=== PATIENT | female | born 1985 | race Caucasian/White ===

== ENCOUNTER 2022-03-08 20:11 | Emergency (ER) | payer OTHER, SELFPAY ==
[2022-03-08 20:21] VITALS: BMI 31.1
[2022-03-08 20:23] VITALS: BP 140/73; PULSE 93; RESP 20; TEMP 36.7; O2SAT 95
--- NOTE | 2022-03-08 20:28 | PC.NURSE ---
Provider assessing pt, pt refusing any lab work and pt care at this time.
--- NOTE | 2022-03-08 20:29 | ED_ITS ---
HPI - Overdose General Chief Complaint: Overdose Stated Complaint: OVERDOSE Time Seen by Provider: 03/08/22 20:26 Source: patient and EMS Mode of arrival: EMS Limitations: no limitations History of Present Illness HPI Narrative: Patient comes to the emergency room via EMS for an overdose. Patient states that she was smoking marijuana and the next thing she knows she was on the floor being woken up by paramedics with Narcan. Patient states that she has never abused any drugs other than marijuana and occasional alcohol. And states that usually she gets marijuana from a dispensary but this time it was from a dealer. Patient states that she has never used heroin or fentanyl on purpose, states her father from an overdose and therefore she never wanted to use any drugs. Patient denies suicidal or homicidal ideation. Patient denies chest pain or shortness of breath, no palpitations Related Data Allergies Allergy/AdvReac Type Severity Reaction Status Date / Time No Known Allergies Allergy Unverified 01/21/20 15:53 [No Known Allergies*] candy corn Allergy Unknown Uncoded 11/05/11 00:00 Motrin Allergy Unknown hives Uncoded 11/05/11 00:00 Review of Systems Review of Systems: Constitutional : No Weight loss, No Fever, No Chills, No N ight Sweats, No Fatigue, No Malaise ENT/Mouth : No Hearing loss, No Ear Pain, No Nasal Congestion, No Sinus Pain, No Hoarseness, No sore throat, No Rhinorrhea, No Swallowing Difficulty Eyes: No Eye Pain, No Swelling, No Redness, No Foreign Body, No Discharge, No Vision Changes Cardiovascular : No Chest Pain, No SOB, No Dyspnea on Exertion, No Orthopnea, No Edema, No Palpitations Respiratory : No Cough, No Sputum, No Wheezing, No Smoke Exposure, No Dyspnea Gastrointestinal : No Nausea, No Vomiting, No Diarrhea, No Constipation, No abdominal Pain, No Hematochezia, No Melena Genitourinary : no irregular bleeding, No Dysuria, No Urinary Frequency, No Hematuria, No Urinary Incontinence, No Urgency, No Flank Pain, No Urinary Flow Changes, No Hesitancy Musculoskeletal : No joint pain, No Myalgias, No Joint Swelling Skin : No Skin Lesions, No rash Neuro : No Weakness, No Numbness, No Paresthesias, No Loss of Consciousness, No Dizziness, No Headache Psych : No Anxiety/Panic, No Depression, No SI/HI/AH/VH, No Social Issues, Heme/Lymph: No Bruising, No Bleeding,No Lymphadenopathy Endocrine : No Polyuria, No Polydipsia, No Temperature Intolerance Physical Exam Vital Signs: Vital Signs: Last Vital Signs Temp 98.0 F 03/08/22 20:23 Pulse 93 03/08/22 20:23 Resp 20 03/08/22 20:23 BP 140/73 H 03/08/22 20:23 Pulse Ox 95 03/08/22 20:23 O2 Del Method 03/08/22 20:23 BMI result Body Mass Index 31.1 Const: Other: Appearance: Alert. Oriented X3. No acute distress. Eyes: Pupils equal, round and reactive to light. ENT: Pharynx normal. Neck: Normal inspection. Neck supple. No lymph nodes noted. No crepitus CVS: Normal heart rate and rhythm. Pulses normal. Normal S1 and S2 Respiratory: No respiratory distress. Breath sounds normal. No Wheezing. No rales Abdomen: Soft and nontender. No rigidity. No distention. Skin: Skin warm and dry. Normal skin color. Normal skin turgor. Extremities: No lower extremity edema. No Lacerations. No Rash Neuro: Oriented X 3. No motor deficit. No sensory deficit. Moving all e xtremities. No slurred speech. CN 2 through 12 grossly intact Psych: calm, cooperative, normal affect Course Course Course Narrative: Patient is alert and oriented x3, no acute distress. Patient is asking to leave against medical advice, patient is not suicidal or homicidal, patient's vitals are stable. I discussed with the patient that we are assuming that she had an accidental overdose. I recommend having blood work done, EKG, urine test. Patient refused. I discussed with the patient that we do not know if this was a cardiac event, pulmonary embolism cannot be ruled out. Patient aware that without ruling this out, if she had 1 of those pathologies, it could be deadly. Patient states that she completely understands what I am saying but she does not want to have any further workup done. Patient states that she will go home, throw away the weed that she bought from the dealer. Sj mccartney declined care/sude consult. Patient will be leaving against medical advise Discharge Plan Discharge Clinical Impression: Accidental overdose Patient Disposition: Left Against Medical Advice Instructions: Adult Overdose (ED) Additional Instructions: Please follow-up with your primary care physician tomorrow. If you have any worsening or new symptoms, please return to the emergency room or call 911
[2022-03-08 20:44] VITALS: BP 143/72; PULSE 102; RESP 24; TEMP 36.6; O2SAT 95
--- NOTE | 2022-03-08 20:45 | PC.NURSE ---
Reviewed discharge instructions with pt. pt verbalized understanding.
== END 2022-03-08 20:46 | disposition left against medical advice (07) ==
PROVIDERS: Emergency Provider Emergency Medicine
DX: T50.901A Poisoning by unspecified drugs, medicaments and biological substances, accidental (unintentional), initial encounter (principal); Y92.9 Unspecified place or not applicable; F12.10 Cannabis abuse, uncomplicated
CPT/HCPCS: 99282

== ENCOUNTER 2022-03-18 09:11 | Emergency (ER) | payer OTHER, SELFPAY ==
--- NOTE | ~2022-03-18 | XR_ITS ---
EXAMINATION: RIGHT FOOT AND ANKLE CLINICAL INFORMATION: TV fell on foot COMPARISON: June 09, 2019 TECHNIQUE: Three-view right foot and AP oblique right ankle FINDINGS: There is no evidence of acute fracture or dislocation of the right ankle. Right ankle mortise appears intact. There is some mild soft tissue swelling present. There is an oblique line through the midportion of the navicular with question some adjacent sclerosis. On provided imaging I cannot determine if this may be artifactual in nature and there is no significant soft tissue swelling in this location, however I am not certain that this does not represent a remote fracture. Clinical correlation to site of pain is recommended. If no other imaging is performed and there remains question of navicular abnormality then CT of the foot could be performed. XR/XR ankle RT 2V IMPRESSION: Question possible navicular fracture as described. No significant ankle abnormality appreciated.
--- NOTE | ~2022-03-18 | XR_ITS ---
EXAMINATION: RIGHT FOOT AND ANKLE CLINICAL INFORMATION: TV fell on foot COMPARISON: June 09, 2019 TECHNIQUE: Three-view right foot and AP oblique right ankle FINDINGS: There is no evidence of acute fracture or dislocation of the right ankle. Right ankle mortise appears intact. There is some mild soft tissue swelling present. There is an oblique line through the midportion of the navicular with question some adjacent sclerosis. On provided imaging I cannot determine if this may be artifactual in nature and there is no significant soft tissue swelling in this location, however I am not certain that this does not represent a remote fracture. Clinical correlation to site of pain is recommended. If no other imaging is performed and there remains question of navicular abnormality then CT of the foot could be performed. XR/XR foot RT 2V IMPRESSION: Question possible navicular fracture as described. No significant ankle abnormality appreciated.
[2022-03-18 09:32] VITALS: BP 141/110; PULSE 81; RESP 18; TEMP 36.7; O2SAT 99; BMI 33.3
--- NOTE | 2022-03-18 09:44 | ED_ITS ---
HPI - Extremity Injury (Lower) General Chief Complaint: Extremity Injury, Lower Stated Complaint: broken R foot? Time Seen by Provider: 03/18/22 09:39 Source: patient and EMS Mode of arrival: wheelchair History of Present Illness HPI Narrative: 36-year-old female with no significant past medical history presenting to the ED complaining of right foot pain and swelling s/p TV falling on foot 2 days ago. Denies other injury. Reports minimal weight-bearing. Reports pain with any movement and decreased ROM of toe secondary to pain/swelling. Denies numbness, tingling complaint: foot injury Onset (ago): day(s) Related Data Previous Rx's Medication Instructions Recorded acetaminophen 300 mg-codeine 30 mg 1 tab PO Q8H PRN pain, severe 3 03/18/22 tablet days #5 tabs Allergies Allergy/AdvReac Type Severity Reaction Status Date / Time No Known Allergies Allergy Unverified 01/21/20 15:53 [No Known Allergies*] candy corn Allergy Unknown Uncoded 11/05/11 00:00 Motrin Allergy Unknown hives Uncoded 11/05/11 00:00 Review of Systems Review of Systems: Constitutional: No Fever, No Chills ENT/Mouth: No Ear Pain, No Nasal Congestion, No sore throat, No Rhinorrhea, No Swallowing Difficulty Cardiovascular: No Chest Pain, No SOB Respiratory: No Cough, No Sputum, No Wheezing Gastrointestinal: No Nausea, No Vomiting, No Abdominal pain Genitourinary: No Dysuria, No Urinary Frequency, No Hematuria, No Flank Pain Musculoskeletal: + joint pain, No Myalgias, + Joint Swelling Skin: No Skin Lesions, No rash Neuro: No Weakness, No Numbness, No Paresthesias Yes all other systems are reviewed and are negative Constitutional: Constitutional: Reports as per HPI [facility] Past Medical History Attestation statement: The following information was validated with the patient. Social History Social History Advance Directives: No Advance Directives Information Provided: Yes Physical Exam Vital Signs: Vital Signs: Last Vital Signs Temp 98.1 F 03/18/22 09:32 Pulse 81 03/18/22 09:32 Resp 18 03/18/22 09:32 BP 141/110 H 03/18/22 09:32 Pulse Ox 99 03/18/22 09:32 O2 Del Method 03/18/22 09:32 BMI result Body Mass Index 33.3 Const: General: cooperative, healthy appearing and no acute distress Orientation/consciousness: patient oriented x3 Limitations: no limitations HEENT: Head: Yes normal to inspection and Yes atraumatic Ears: hearing grossly normal bilaterally General nose exam: Normal external nose present Face and sinus: Yes normal facial exam Eyes: General: appearance normal, both eyes and all related structures EOM: EOMs intact bilaterally Neck: Neck: Yes normal visual inspection and Yes no meningeal signs Resp: Effort & Inspection: normal respiratory effort and no respiratory distress Cardio: Rate: regular rate Peripheral pulses: posterior tibial pulses present and dorsalis pedis present Skin: Rashes: no rashes Wounds: no wounds Neuro: General: patient oriented x3, tone normal, no meningeal signs and Unable to assess gait Gait exam (Neuro): Unable to assess gait Extrem: Other: Right foot with noted swelling greatest proximally and ttp. Ankle nontender. Neurovascularly intact. Limited ROM of toe secondary to pain. Ankle ROM intact. Course Course Course Narrative: XR foot RT 2V/XR ankle RT 2V IMPRESSION: Question possible navicular fracture as described. ? No significant ankle abnormality appreciated. >> will place patient in posterior short-leg splint and supplied with crutches to be nonweightbearing follow-up with orthopedics in 1 week Medications Administered Discontinued Medications Generic Name Dose Route Start Last Admin Trade Name Freq PRN Reason Stop Dose Admin Acetaminophen/Codeine Phosphate 1 tab 03/18/22 12:09 03/18/22 12:16 Acetaminophen With Codeine # 3 Tablet PO 03/18/22 12:10 1 tab ONCE ONE Administration Ketorolac Tromethamine 30 mg 03/18/22 09:43 03/18/22 09:57 Ketorolac Tromethamine 30 Mg/Ml Vial IM 03/18/22 09:44 30 mg ONCE ONE Administration MDM - Extremity Injury (Lower) MDM Narrative Medical decision making narrative: 36-year-old female with no significant past medical history presenting to the ED complaining of right foot pain and swelling s/p TV falling on foot 2 days ago. On exam hypertensive likely from pain, physical exam as above. Concern for ankle/foot fracture versus sprain Plan: X-rays, pain control Medical Records Attestation: I reviewed the patient's medical records. Lab Data Attestation: I reviewed the patient's lab results. Procedures Orthopedic Splinting/Casting Injury #1: Side: right Lower Extremity Injury Location: foot Lower Extremity Immobilizer: posterior splint Other Orthopedic Equipment: crutches Discharge Plan Discharge Clinical Impression: Fx navicular, foot-closed Qualifiers: Encounter type: initial encounter Fracture alignment: nondisplaced Laterality: right Qualified Code(s): S92.254A - Nondisplaced fracture of navicular [scaphoid] of right foot, initial encounter for closed fracture Patient Disposition: Home, Self-Care Instructions: Foot Fracture in Adults (ED) Additional Instructions: Your x-ray shows a possible fracture of your navicular bone in her foot Keep splint on, dry, and clean. Do not bear any weight on her right leg. Use crutches. Follow-up with presentation specialist in 1 week Ice and elevate Take ibuprofen, additionally Tylenol with codeine is opiate pain medication, take only when pain is severe for the next 3 days If toes become numb, increasingly swollen or pain becomes unbearable remove splint and return to the ED immediately Prescriptions: New acetaminophen-codeine 300-30 mg tablet 1 tab PO Q8H PRN (Reason: pain, severe) 3 Days Qty: 5 0RF Referrals: [facility] [place] [facility] Sur[facility] [Provider Group] - 1 week
[2022-03-18] MEDS: Ketorolac Tromethamine 30 MG/ML VIAL IM (09:57)
== END 2022-03-18 14:09 | disposition home or self-care (01) ==
PROVIDERS: Emergency Provider Emergency Medicine
DX: S92.254A Nondisplaced fracture of navicular [scaphoid] of right foot, initial encounter for closed fracture (principal); X58.XXXA Exposure to other specified factors, initial encounter; Y93.9 Activity, unspecified; Y92.9 Unspecified place or not applicable; Y99.9 Unspecified external cause status; Z79.899 Other long term (current) drug therapy
CPT/HCPCS: 29515; 73600; 73620; 96372; 99283; 99284; J1885

== ENCOUNTER 2022-03-26 06:25 | Outpatient (REF) | payer OTHER, SELFPAY ==
--- NOTE | ~2022-03-26 | XR_ITS ---
EXAMINATION: XR FOOT, RIGHT CLINICAL INFORMATION: Fracture COMPARISON: Previous x-ray March 2022 TECHNIQUE: AP, lateral, and oblique views of the right foot. FINDINGS: There is a lucency in the mid navicular bone this appears unchanged from previous exam from earlier this month. It is uncertain whether this represents a minimally displaced fracture or ununited ossification center. Clinical correlation recommended. No other fracture is seen. Fracture appears intra-articular with the talar navicular and navicular cuneiform joints. There is mild arthritis at the talar navicular joint. There is soft tissue swelling of the dorsal foot.. XR/XR foot RT min 3V IMPRESSION: Stable lucency in the mid navicular bone. Differential would include a minimally displaced fracture and ununited ossification center. Clinical correlation recommended. This could be better evaluated with CT if clinically indicated.
== END 2022-03-26 06:26 | disposition home or self-care (01) ==
LOC: HO.HOSX 06:25
PROVIDERS: Visit Provider Physician Assistant
DX: S92.351A Displaced fracture of fifth metatarsal bone, right foot, initial encounter for closed fracture (principal); S90.31XA Contusion of right foot, initial encounter
CPT/HCPCS: 73630; 99202

== ENCOUNTER 2023-04-24 12:25 | Emergency (ER) | payer OTHER, SELFPAY ==
--- NOTE | ~2023-04-24 | XR_ITS ---
EXAMINATION: XR SHOULDER, LEFT CLINICAL INFORMATION: Pain. Trauma. COMPARISON: None available. TECHNIQUE: Three views of the left shoulder. FINDINGS: There is question of a nondisplaced fracture of the greater tuberosity. No other fracture. Bone alignment is normal. Normal joint spaces. Normal soft tissues. XR/XR shoulder LT min 2V IMPRESSION: Question nondisplaced fracture of the greater tuberosity.
[2023-04-24 13:09] VITALS: BP 160/102; PULSE 70; RESP 18; TEMP 36.6; O2SAT 97; BMI 32.3
--- NOTE | 2023-04-24 13:15 | ED.EXTPRO ---
HPI - Extremity Problem General Chief complaint: Extremity Injury, Upper Stated complaint: L Arm Injury 04/23/23 Time Seen by Provider: 04/24/23 13:49 Source: patient Mode of arrival: ambulatory Limitations: no limitations History of Present Illness HPI Narrative: Patient is a 37 year old assigned female at with no reported medical history presenting to the emergency department today with left shoulder pain. Patient states that yesterday she was wrestling around with her kids when she landed on her left shoulder and has pain ever since. Patient states that she cannot move her left arm without pain. Patient denies any loss of conciseness, head strike, dizziness, lightheadedness, abdominal pain, nausea, vomiting, fever, chills, blurry vision, double vision, loss of vision, chest pain, difficulty breathing, shortness of breath, back pain, night sweats, pain with urination, increased urinary frequency, increased urinary urgency, blood in her urine or stool, syncope or a near syncopal episode, bowel incontinence, bladder incontinence, bowel retention, bladder retention, or any other complaints at this time. MD Complaint: extremity pain Onset (ago): day(s) (1) Pain Consistency: constant Location: left and upper extremity Severity scale (1-10): 3 Quality: aching and dull Radiation: none Relieving factors: immobilization Exacerbating factors: range of motion Associated symptoms: denies other symptoms Related Data Previous Rx's Medication Instructions Recorded acetaminophen 300 mg-codeine 30 mg 1 tab PO Q8H PRN pain, severe 3 03/18/22 tablet days #5 tabs Allergies Allergy/AdvReac Type Severity Reaction Status Date / Time candy corn Allergy Unknown hives Uncoded 04/24/23 13:09 Motrin Allergy Unknown hives Uncoded 04/24/23 13:09 Review of Systems Constitutional: Constitutional: Reports no additional constitutional complaints, Denies chills, Denies fever(s) and Denies night sweats Eyes: Eyes: Reports no additional eye complaints, Denies blurry vision, Denies change in vision, Denies diplopia, Denies eye discharge, Denies loss of vision and Denies eye pain ENT: Denies dizziness Cardiovascular: Cardiovascular: Reports no additional cardiovascular complaints, Denies chest pain, Denies lightheadedness, Denies Loss of Consciousness and Denies dyspnea Respiratory: Respiratory: Reports no additional respiratory complaints and Denies dyspnea Gastrointestinal: Gastrointestinal: Reports no additional gastrointestinal complaints, Denies abdominal pain, Denies melena, Denies hematochezia, Denies change in bowel habits and Denies change in stool character Genitourinary: Genitourinary: Denies hematuria, Denies urinary frequency, Denies dysuria, Denies urinary incontinence, Denies urinary hesitancy and Denies urinary urgency Musculoskeletal: Musculoskeletal: Reports no additional musculoskeletal complaints, Denies numbness and Denies tingling Comments: left shoulder pain Neurologic: Denies dizziness, Denies loss of vision, Denies numbness and Denies tingling Psychiatric: Psychiatric: Reports no additional psychiatric complaints Endocrine: Endocrine: Reports no additional endocrine complaints Hematologic/Lymphatic: Hematologic/Lymphatic: Reports no additional hematologic/lymphatic complaints Allergic/Immunologic: Allergic/Immunologic: Reports no additional allergic/immunologic complaints PMFSH Past Medical History Attestation statement: The following information was validated with the patient. Source: old records reviewed and nursing notes reviewed Social History Social History Patient Tobacco Use Status: Current everyday Tobacco user Advance Directives: No Advance Directives Information Provided: No Current occupational status: employed Current occupation: [employer] Physical Exam Vital Signs: Vital Signs: Last Vital Signs Temp 98 F 04/24/23 13:09 Pulse 70 04/24/23 13:09 Resp 18 04/24/23 13:09 BP 160/102 H 04/24/23 13:09 Pulse Ox 97 04/24/23 13:09 O2 Del Method Room Air 04/24/23 13:09 BMI result Body Mass Index 32.3 Const: General: cooperative, no acute distress, alert and awake Nutritional Appearance: well nourished Orientation/consciousness: patient oriented x3 Limitations: no limitations HEENT: Head: Yes normal to inspection and Yes atraumatic Ears: hearing grossly normal bilaterally and external ears normal General nose exam: Normal external nose present, no nasal discharge noted and no epistaxis Face and sinus: Yes normal facial exam, No abrasion and No laceration Mouth: Normal oral and palatal mucosa present, no drooling and no muffled voice Eyes: General: appearance normal, both eyes and all related structures Periorbital: periorbital findings normal Eyelids: Yes eyelids normal Conjunctivae: conjunctivae normal Pupils: Equal, round and reactive pupils present EOM: EOMs intact bilaterally Neck: Neck: Yes normal visual inspection, Yes full ROM and Yes no lymphadenopathy Chest: Chest palpation & inspection: normal inspection of the chest Resp: Effort & Inspection: normal respiratory effort and able to speak in complete sentences GI: Inspection: Yes normal to inspection Neuro: General: patient oriented x3 and moves all extremities Cranial nerves: Yes Equal, round and reactive pupils present Cognition (Neuro): normal cognition Motor exam (neuro): 5/5 motor strength present throughout Sensory Exam: Normal double simultaneous stimulation for sensation Coordination: aogzed-ad-tqos test normal Extrem: Other: patient unable to perform ROM with left shoulder secondary to pain General: Yes normal to inspection and Yes capillary refill normal Psych: Appearance: grossly normal Mental Status: mental status grossly normal Affect: normal affect Attitude: cooperative Thought process: Normal thought process present Thought content: Normal thought content present Insight: Good insight present (Psych) Course Course Course Narrative: RME: 37 yold female presents to the ED for left shoulder pain sine yesterday. patient was wrestling with her 17 yold sons and they twisted her arm and left shoulder and hear a pop in left shoulder. Xray orderd of shoulder Medications Administered Discontinued Medications Generic Name Dose Route Start Last Admin Trade Name Freq PRN Reason Stop Dose Admin Ketorolac Tromethamine 15 mg 04/24/23 13:57 04/24/23 14:07 Ketorolac Tromethamine 15 Mg/Ml Vial IM 04/24/23 13:58 15 mg ONCE ONE Administration Medical Decision Making Medical Decision Making [facility] Narrative: Patient is a 37 year old assigned female at with no reported medical history presenting to the emergency department today with left shoulder pain. Patient's physical exam was as noted in the physical exam portion of this note. Patient's left shoulder x-ray showed an acute fracture. I consulted with orthopedics who recommended putting the patient in a sling and having her follow up on an outpatient basis. I explained my physical exam findings as well as all test results to the patient. I answered all questions asked by the patient. Patient's left arm was placed in a sling, without incident. Patient's PMS was intact prior to and after sling placement. I stressed the importance of the patient taking her medication as prescribed. I stressed the importance of the patient following up with her primary care provider and an orthopedic provider. I stressed the importance of the patient returning to the emergency department immediately if her symptoms were to worsen or if she were to develop any dizziness, shortness of breath, difficulty breathing, chest pain, blurry vision, loss of vision, nausea, vomiting, abdominal pain, fever, chills, back pain, or any other complaints. Patient verbalized agreement and understanding with this treatment plan and discharge. Differential Diagnosis Differential Diagnoses: The differential diagnosis associated with the presentation includes Humerus fracture Rotator cuff injury Admission/Observation Consideration of admission/observation: Escalation of care including admission/observation considered Patient would have been admitted to the hospital had her work up had any findings where hospital admission was appropriate and her clinical presentation warranted hospital admission. Consult Healthcare Provider Management of the patient was discussed with: Collaborating Supervising Physician (spoke with orthopedics as noted in the MDM rationale portion of this note.) Independent Interpretation I performed an independent interpretation of an: Plain X-Ray Interpretation: My interpretation is in agreement with the radiologist's impression of this imaging study. EXAMINATION: XR SHOULDER, LEFT CLINICAL INFORMATION: Pain. Trauma. COMPARISON: None available. TECHNIQUE: Three views of the left shoulder. FINDINGS: There is question of a nondisplaced fracture of the greater tuberosity. No other fracture. Bone alignment is normal. Normal joint spaces. Normal soft tissues. XR/XR shoulder LT min 2V IMPRESSION: Question nondisplaced fracture of the greater tuberosity. Dictated By: Xi Rinaldi MD Signed By: Electronically signed by Xi Rinaldi MD 04/24/23 5735 Radiology Impression Discussion of test interpretation with radiology: I have reviewed the radiologist's reading. Procedures Orthopedic Splinting/Casting Injury #1: Side: left Upper Extremity Injury Location: shoulder Upper Extremity Immobilizer: sling/shoulder immobilizer Discharge Plan Discharge Clinical Impression: Humeral fracture, Rotator cuff injury Patient Disposition: Home, Self-Care Instructions: Rotator Cuff Injury (ED), How to Use a Sling (ED) Additional Instructions: Keep your arm in the sling. Follow up with your primary care provider and an orthopedic provider. Return to the emergency department immediately if your symptoms worsen or if you develop any dizziness, shortness of breath, difficulty breathing, chest pain, blurry vision, loss of vision, nausea, vomiting, abdominal pain, fever, chills, back pain, or any other complaints. Prescriptions: No Action acetaminophen-codeine 300-30 mg tablet 1 tab PO Q8H PRN (Reason: pain, severe) 3 Days Qty: 5 0RF [place] [facility] [place] [facility] [place]Provider Group] (Call to establish and follow up with an orthopedic provider.) Hortensia Tucker NP [Primary Care Provider] - Interventions: ED Discharge Assessment Last Done: 04/24/23 15:21 Discharge Date/Time: 04/24/23 15:21 Print Language: [place] Citizen
[2023-04-24] MEDS: Ketorolac Tromethamine 15 MG/ML VIAL IM (14:07)
== END 2023-04-24 15:21 | disposition home or self-care (01) ==
PROVIDERS: Emergency Provider Emergency Medicine Emergency Medical Services; PCP Nurse Practitioner Family
DX: S42.302A Unspecified fracture of shaft of humerus, left arm, initial encounter for closed fracture (principal); S46.002A Unspecified injury of muscle(s) and tendon(s) of the rotator cuff of left shoulder, initial encounter; W01.0XXA Fall on same level from slipping, tripping and stumbling without subsequent striking against object, initial encounter; Y93.9 Activity, unspecified; Y92.9 Unspecified place or not applicable; Y99.9 Unspecified external cause status
CPT/HCPCS: 29105; 73030; 96372; 99283; 99284; J1885

== ENCOUNTER 2023-05-07 11:59 | Emergency (ER) | payer OTHER, SELFPAY ==
[2023-05-07 12:15] VITALS: BP 172/106; PULSE 88; RESP 18; TEMP 36; O2SAT 96; BMI 35.7
--- NOTE | 2023-05-07 12:21 | ED_ITS ---
HPI - General Adult General Chief complaint: General Medical Stated complaint: L shoulder pain/L ear pain Time Seen by Provider: 05/07/23 12:33 Source: patient and RN notes reviewed Mode of arrival: ambulatory Limitations: no limitations History of Present Illness HPI narrative: this is a 37-year-old female presenting to the emergency department with complaints of left ear pain x2 days. Patient denies any recent trauma or injury. She states that she woke up 2 days ago at had pain in her left ear. She states that this has worsened the last 2 days. Denies any fevers, chills, ear drainage, decreased left ear hearing,nasal congestion, sore throat, cough. Denies history of similar symptoms. No recent swimming. she also was diagnosed with a humeral fracture on April 24, awaiting orthopedic appoi ntment which is on May 13. She has been taking ibuprofen and Tylenol her symptoms as well as giving her arm in a sling. no new injury or trauma. No other complaints or concerns at this time. MD complaint: Left ear pain Radiation: non-radiation Pain Consistency: constant Relieving factors: none Exacerbating factors: none Associated symptoms: denies other symptoms Treatments prior to arrival: none Related Data Previous Rx's Medication Instructions Recorded acetaminophen 300 mg-codeine 30 mg 1 tab PO Q8H PRN pain, severe 3 03/18/22 tablet days #5 tabs acetaminophen 500 mg tablet 500 mg PO Q6H PRN pain #30 tabs 05/07/23 (Tylenol Extra Strength) amoxicillin 875 mg-potassium 1 tab PO BID 7 days #14 tabs 05/07/23 clavulanate 125 mg tablet ibuprofen 600 mg tablet 600 mg PO Q6H PRN pain #30 tabs 05/07/23 oxycodone 5 mg tablet 5 mg PO Q6H PRN severe pain (scale 05/07/23 score 7-10) #7 tabs Allergies Allergy/AdvReac Type Severity Reaction Status Date / Time candy corn Allergy Unknown hives Uncoded 04/24/23 13:09 Motrin Allergy Unknown hives Uncoded 04/24/23 13:09 Review of Systems Review of Systems: Yes all other systems are reviewed and are negative Constitutional: Constitutional: Reports as per [facility] Past Medical History Attestation statement: The following information was validated with the patient. Onset Date is defined in the Problem List Problems that require an onset date and time if occurred within 24 hrs of arrival to the ED Aortic Dissection and Rupture; Neurologic impairment; Cardiopulmonary Arrest; Endotracheal Intubation; Insertion or Replacement of Mechanical Circulatory Assist Device Social History Social History Patient Tobacco Use Status: Current everyday Tobacco user Advance Directives: No Current occupational status: employed Current occupation: [employer] Physical Exam ED Vital Signs: Vital Signs - 24 hr 05/07/23 12:15 Temperature 96.8 F Pulse Rate 88 Respiratory Rate 18 Blood Pressure 172/106 H Pulse Oximetry 96 Oxygen Delivery Method Room Air BMI result Body Mass Index 35.7 Const General: cooperative, comfortable and no acute distress Orientation/consciousness: patient oriented x3 Limitations: no limitations HENMT Other: left TM is erythematous and bulging, is intact. No canal edema or erythema. No drainage no mastoid tenderness to palpation right TM unremarkable Head: Yes normal to inspection, Yes normocephalic and Yes atraumatic Ears: hearing grossly normal bilaterally General nose exam: Normal external nose present Face and sinus: Yes normal facial exam Mouth: Normal oral and palatal mucosa present, oropharynx normal and moist mucous membranes Throat: Yes posterior oropharynx normal Eyes General: appearance normal, both eyes and all related structures Eyelids: Yes eyelids normal Conjunctivae: conjunctivae normal Sclerae: sclerae normal Pupils: Equal, round and reactive pupils present EOM: EOMs intact bilaterally Neck Neck: Yes normal visual inspection, Yes full ROM and Yes no lymphadenopathy Lymphatic: no lymphadenopathy noted Chest Chest palpation & inspection: normal inspection of the chest Resp Effort & Inspection: normal respiratory effort and able to speak in complete sentences Auscultation: clear to auscultation bilaterally, no crackles, no rales, no rhonchi and no wheezes Cardio Rate: regular rate Rhythm: regular rhythm Heart sounds: S1 normal heart sound present and S2 normal heart sound present GI Inspection: Yes normal to inspection Skin General skin exam: no rashes or lesions noted Trauma: no lacerations or abrasions Wounds: no wounds Neuro General: patient oriented x3 and moves all extremities Cranial nerves: Yes Equal, round and reactive pupils present Extrem Other: left upper extremity in shoulder immobilizer, strong radial pulse, moving all digits without difficulty, extremities well perfused General: Yes normal to inspection Right upper extremity: normal to inspection Left upper extremity: normal to inspection Right lower extremity: normal to inspection Left lower extremity: normal to inspection Course Course Course Narrative: This is an RME: Additional HPI, ROS, PE not included below will be deferred to primary provider. This is a 37 [id number] presenting to the [id number] department with a complaint of left ear pain Medical Decision Making Medical Decision Making MDM Narrative: 37-year-old female presenting to the emergency department for evaluation of left ear pain x2 days. On arrival, patient tearful given pain in her left ear, left ear examination consistent with otitis media. Patient has no mastoid tenderness, mastoiditis unlikely. Will treat with antibiotic as well as ibuprofen, Tylenol. Also given short prescription for oxycodone for severe pain only given level of discomfort. Discussed findings with patient, as well as return precautions. Patient understands and agrees with plan. she also reports that she is being currently seen for humeral fracture for Orthopedics, no changes, no new injury, she remains to be in a shoulder immobilizer. She is here to have her left ear evaluated not her left shoulder. Patient stable for discharge Differential Diagnosis Differential Diagnoses: The differential diagnosis associated with the presentation includes Otitis media, externa, TM perforation, otalgia Discharge Plan Discharge Clinical Impression: Otitis media Patient Disposition: Home, Self-Care Instructions: Ear Infection (ED) Additional Instructions: You were seen in the emergency department due to an ear infection. Please take prescribed antibiotic as directed. Continue taking ibuprofen and Tylenol. You may take oxycodone as needed for severe pain only. Please be aware that this can cause drowsiness, do not drink alcohol or drive while taking this medication. If any new or worsening symptoms occur, including but not limited to worsening pain, high fevers, please return for re-evaluation. Prescriptions: New amoxicillin-pot clavulanate 875-125 mg tablet 1 tab PO BID 7 Days Qty: 14 0RF oxycodone 5 mg tablet 5 mg PO Q6H PRN (Reason: severe pain (scale score 7-10)) Qty: 7 0RF Rx Instructions: Partial Fill upon patient request. acetaminophen [Tylenol Extra Strength] 500 mg tablet 500 mg PO Q6H PRN (Reason: pain) Qty: 30 0RF ibuprofen 600 mg tablet 600 mg PO Q6H PRN (Reason: pain) Qty: 30 0RF No Action acetaminophen-codeine 300-30 mg tablet 1 tab PO Q8H PRN (Reason: pain, severe) 3 Days Qty: 5 0RF Interventions: ED Discharge Assessment Last Done: 05/07/23 13:07 Discharge Date/Time: 05/07/23 13:14
== END 2023-05-07 13:14 | disposition home or self-care (01) ==
PROVIDERS: Emergency Provider Emergency Medicine; PCP Nurse Practitioner Family
DX: H66.92 Otitis media, unspecified, left ear (principal); H92.02 Otalgia, left ear
CPT/HCPCS: 99282; 99283

== ENCOUNTER 2023-05-13 08:38 | Outpatient (REF) | payer OTHER, SELFPAY ==
--- NOTE | ~2023-05-13 | XR_ITS ---
EXAMINATION: XR SHOULDER, LEFT CLINICAL INFORMATION: Pain in left shoulder. Question nondisplaced fracture of the greater tuberosity on radiographs of 04/24/2023. COMPARISON: 04/24/2023. TECHNIQUE: Two views of the left shoulder. FINDINGS: Increased conspicuity of previously questioned nondisplaced fracture of the greater tuberosity. Acromioclavicular and glenohumeral joints are preserved. Alignment maintained. XR/XR shoulder LT min 2V IMPRESSION: Increased conspicuity of previously questioned nondisplaced fracture of the greater tuberosity. Noncontrast enhanced CT scan could be considered for better characterization.
== END 2023-05-13 08:39 | disposition home or self-care (01) ==
LOC: HO.HOSX 08:38
PROVIDERS: Visit Provider Physician Assistant
DX: S42.255A Nondisplaced fracture of greater tuberosity of left humerus, initial encounter for closed fracture (principal)
CPT/HCPCS: 73030; 99212

== ENCOUNTER 2023-05-13 13:11 | Outpatient (AMB) | payer OTHER, SELFPAY ==
[2023-05-13 13:17] VITALS: BMI 35.6
--- NOTE | 2023-05-13 13:17 | A.OFFVIS_ITS ---
Intake Vital Signs 05/13/23 13:17 Height 5 ft 5 in Weight 214 lb BMI 35.6 Intake Visit Reasons: fc-non displaced greater tuberosity fracture Intake Note: Astrid wolff 37 year old right hand dominant female presents today as a new patient for an evaluation of left greater tuberosity fx, DOI 04/23/23. Patient reports that she was playing wrestling with her child when she injured her left arm. She presented to [facility] ED the following day where xrays were taken, placed in a sling and referred to orthopedics. Current pain level is 8-9 out of 10. States constant pain in her shoulder that affects AODL and difficulty sleeping at night. Allergies candy corn Allergy (Unknown, Uncoded 05/13/23 13:33) hives Motrin Allergy (Unknown, Uncoded 05/13/23 13:33) hives HPI fc-non displaced greater tuberosity fracture HPI Details 37-year-old right hand dominant female christie arriola presents to the office today for left shoulder injury s/p playing wrestling with her child when she injured her left arm, 04/23/23. She currently states she has constant pain in her shoulder and rates the pain as 10 on the scale of 0-10 which gets down to 8 when at rest. Her pain is aggravated with sleeping at night and her pain makes her difficult to reach overhead and perform AODL. [facility] Social History (Updated 05/13/23 @ 13:27 by GUALBERTO Cruz) Patient Tobacco Use Status: Current everyday Tobacco user Current occupational status: unemployed Current occupation: right hand dominant Review of Systems Const All systems reviewed & are unremarkable except as noted in HPI and below Physical Exam Vital Signs: BMI result Body Mass Index 35.6 Const General: cooperative, healthy appearing, comfortable, no acute distress, well developed and alert Orientation/consciousness: patient oriented x3 HEENT Head: Yes normal to inspection, Yes normocephalic and Yes atraumatic Eyes General: appearance normal, both eyes and all related structures Resp Effort & Inspection: normal respiratory effort and able to speak in complete sentences Cardio Rate: regular rate Peripheral pulses: Peripheral pulses 2+ throughout GI Palpation (GI): Soft to palpation Skin Lesions: no lesions Rashes: no rashes Neuro General: patient oriented x3 Extrem Other: Left shoulder: Normal to inspection. Diffuse Swelling and tenderness over the proximal humerus which extends down the arm. Anterior deltoid sensation intact. Elbow and wrist ROM intact. NVI. Office Procedures Fracture Care Fracture Billing Code: Fracture Billing Code Results Reviewed Results Reviewed: Xrays were obtained in the office today and personally reviewed by me of the left shoulder show stable greater tuberoisty fx Assessment & Plan Assessment & Plan (1) Fracture of greater tuberosity of left humerus: Code(s): S42.252A - Displaced fracture of greater tuberosity of left humerus, initial encounter for closed fracture Qualifiers: Encounter type: initial encounter Fracture type: closed Fracture alignment: nondisplaced Qualified Code(s): S42.255A - Nondisplaced fracture of greater tuberosity of left humerus, initial encounter for closed fracture Plan She will use sling for comfort and safety only. I did encourage her to come out of the sling to work on pendulum exercises to prevent stiffness. I did explain the importance of avoiding guarding of the shoulder to help with her discomfort. I did send a prescription of ibuprofen 800 mg to take three times a day a day for the next 2 weeks and I also gave her a prescription of tramadol to take twice a day for her pain. I would like to see her back in 4-6 weeks with new x- rays, sooner if needed. Orders: Orders XR shoulder LT min 2V Today M25.512 - Pain in left shoulder Medications: New ibuprofen 800 mg PO Q8H PRN 90 tabs 3RF pain 30 days S52.209D - Unspecified fracture of shaft of unspecified ulna, subsequent encounter for closed fracture with routine healing tramadol 50 mg PO BID 14 tabs 0RF 7 days Patient Instructions: Scribed for Mike Schmidt PA-C, by Maynor López medical transcription supervisor, on 05/13/2023 at 1:45 PM EST. IMike PA-C, have personally reviewed and agree with the information entered by the scribe. Coding Level of Care Code New Pt Level 3 (41277) Diagnoses Closed nondisplaced fracture of greater tuberosity of left humerus, initial encounter S42.255A Encounter type: initial encounter Fracture type: closed Fracture alignment: nondisplaced CPT Codes Fracture Care - Fracture Billing Code: Fracture Billing Code ([id number])
== END 2023-05-13 15:21 | disposition home or self-care (01) ==
PROVIDERS: PCP Nurse Practitioner Family; Visit Provider Physician Assistant
DX: S42.255A Nondisplaced fracture of greater tuberosity of left humerus, initial encounter for closed fracture (principal)
CPT/HCPCS: 99213

== ENCOUNTER 2023-06-10 09:05 | Outpatient (REF) | payer OTHER, SELFPAY ==
--- NOTE | ~2023-06-10 | XR_ITS ---
EXAMINATION: XR SHOULDER, LEFT CLINICAL INFORMATION: Left shoulder pain COMPARISON: Left shoulder x-ray on 05/13/2023 TECHNIQUE: AP external rotation, scapular Y views of the left shoulder. FINDINGS: BONES: Mild cortical step off is seen at the base of left humeral greater tuberosity, surrounded by subtle radiolucency extending to the lateral base of the bone fragment. JOINTS: Alignment of joints is normal. SOFT TISSUE: Soft tissue is normal. No radiopaque foreign body or abnormal air collection is seen. XR/XR shoulder LT min 2V IMPRESSION: Unchanged minimally displaced left humeral greater tuberosity fracture.
== END 2023-06-10 09:06 | disposition home or self-care (01) ==
LOC: HO.HOSX 09:05
PROVIDERS: Visit Provider Physician Assistant
DX: M25.512 Pain in left shoulder (principal); S42.255A Nondisplaced fracture of greater tuberosity of left humerus, initial encounter for closed fracture; X58.XXXA Exposure to other specified factors, initial encounter; Y93.9 Activity, unspecified; Y92.9 Unspecified place or not applicable; Y99.9 Unspecified external cause status
CPT/HCPCS: 73030; 99212

== ENCOUNTER 2023-06-10 11:05 | Outpatient (AMB) | payer OTHER, SELFPAY ==
[2023-06-10 11:07] VITALS: BMI 35.6
--- NOTE | 2023-06-10 11:07 | MHC.OFFVIS ---
Intake Vital Signs 06/10/23 11:07 Height 5 ft 5 in Weight 214 lb BMI 35.6 Intake Visit Reasons: OV-non displaced greater tuberosity fracture Intake Note: Astrid wolff 37 year old right hand dominant female presents today for a follow up of left greater tuberosity fx, DOI 04/23/23. Xrays updated while in office. Patient reports that she continues to have constant pain that gets worse at night and waking up in the mornings. No strength in arm, states arm feels stuck. Finds very little to no relief with ibuprofen and no relief with tramadol. Occasional numbness and tingling. Allergies candy corn Allergy (Unknown, Uncoded 06/10/23 11:08) hives Motrin Allergy (Unknown, Uncoded 06/10/23 11:08) hives HPI OV-non displaced greater tuberosity fracture HPI Details 37-year-old right hand dominant female who returns to the office today for a follow-up of left shoulder fracture, 04/23/23. She continues to have constant pain in her left shoulder which is aggravated at night and waking up in the mornings. She also c/o occasional numbness and tingling in her shoulder. She also experiences no strength in her arm reports her arm ?feels stuck.? She finds minimal relief with ibuprofen and no relief with tramadol. [facility] Social History Patient Tobacco Use Status: Current everyday Tobacco user Current occupational status: unemployed Current occupation: right hand dominant Review of Systems Const All systems reviewed & are unremarkable except as noted in HPI and below Physical Exam Vital Signs: BMI result Body Mass Index 35.6 Extrem Other: Left shoulder: Normal to inspection. She has mild tenderness in the greater tuberosity. Forward flexion to 45 degrees, abduction to 30 degrees, and internal rotation to back pocket. NVI. Results Reviewed Results Reviewed: X-rays of the left shoulder obtained in the office today show a stable fracture pattern. Assessment & Plan Assessment & Plan (1) Fracture of greater tuberosity of left humerus: Code(s): S42.252A - Displaced fracture of greater tuberosity of left humerus, initial encounter for closed fracture Qualifiers: Encounter type: initial encounter Fracture alignment: nondisplaced Fracture type: closed Qualified Code(s): S42.255A - Nondisplaced fracture of greater tuberosity of left humerus, initial encounter for closed fracture Plan She will discontinue the use of her sling. I her encouraged to work on gentle ROM exercises. She was also given an order physical therapy for ROM and periscapular stabilization, no RTC strengthening until 3 months from injury which is 04/24/23. She will see me back in 6 weeks with x-rays, sooner if needed. Orders: Orders XR shoulder LT min 2V Today M25.512 - Pain in left shoulder PT Evaluation and Treatment Today S42.252A - Displaced fracture of greater tuberosity of left humerus, initial encounter for closed fracture Patient Instructions: Scribed for Mike Schmidt PA-C, by Maynor López medical clerical assistant, on 06/10/2023 at 11:00 AM EST. I, Mike Schmidt PA-C, have personally reviewed and agree with the information entered by the scribe. Coding Level of Care Code Global (92949) Diagnoses Closed nondisplaced fracture of greater tuberosity of left humerus, initial encounter S42.255A Encounter type: initial encounter Fracture alignment: nondisplaced Fracture type: closed
== END 2023-06-10 11:43 | disposition home or self-care (01) ==
PROVIDERS: PCP Nurse Practitioner Family; Visit Provider Physician Assistant
DX: S42.255A Nondisplaced fracture of greater tuberosity of left humerus, initial encounter for closed fracture (principal)
CPT/HCPCS: 99213

== ENCOUNTER 2023-07-22 13:44 | Outpatient (AMB) | payer OTHER, SELFPAY ==
--- NOTE | 2023-07-22 14:29 | A.OFFVIS_ITS ---
Intake Vital Signs 07/22/23 14:33 Height 5 ft 5 in Weight 214 lb BMI 35.6 Intake Visit Reasons: ov-left greater tuberosity fx w xrays Intake Note: Astrid a 37 year old right hand dominant female presents today for a follow up of left greater tuberosity fx, DOI 04/23/23. Patient reports she continues to have constant pain. States attending PT twice a week which causes an increase in discomfort and soreness. Allergies candy corn Allergy (Unknown, Uncoded 07/22/23 14:33) hives Motrin Allergy (Unknown, Uncoded 07/22/23 14:33) hives Medication List - Last Reconciled 07/22/23 by Mike Schmidt PA-C acetaminophen (Tylenol Extra Strength) 500 mg PO Q6H PRN acetaminophen-codeine 300-30 mg 1 tab PO Q8H PRN 3 days ibuprofen 600 mg PO Q6H PRN ibuprofen 800 mg PO Q8H PRN 30 days oxycodone 5 mg PO Q6H PRN tramadol 50 mg PO BID 7 days HPI ov-left greater tuberosity fx w xrays HPI Details 38-year-old right hand dominant female w flako returns to the office today for a follow-up of left shoulder fracture, 04/23/23. She continues to have constant pain in her shoulder and has been working with physical therapy however she experiences increased discomfort and soreness with the exercises. She is taking ibuprofen for her pain. She has no other concerns today. [facility] Social History Patient Tobacco Use Status: Current everyday Tobacco user Current occupational status: unemployed Current occupation: right hand dominant Review of Systems Const All systems reviewed & are unremarkable except as noted in HPI and below Physical Exam Vital Signs: BMI result Body Mass Index 35.6 Extrem Other: Left shoulder: Normal to inspection. She has hypersensitivity to light palpation throughout the shoulder region. Forward flexion to 170 degrees, abduction to 90 degrees, Er to 90 and internal rotation to back pocket. She has good activation of RTC strength. NVI. Results Reviewed Results Reviewed: X-rays of the left shoulder obtained in the office today show a stable, healed greater tuberosity fracture Assessment & Plan Assessment & Plan (1) Fracture of greater tuberosity of left humerus: Code(s): S42.252A - Displaced fracture of greater tuberosity of left humerus, initial encounter for closed fracture Qualifiers: Encounter type: initial encounter Fracture alignment: nondisplaced Fracture type: closed Qualified Code(s): S42.255A - Nondisplaced fracture of greater tuberosity of left humerus, initial encounter for closed fracture Plan She will continue working with physical therapy to improve her strength and increase activity as tolerated. I strongly recommend ice and anti-inflammatories use for her pain. I also explained the healing on x-rays and therefore the importance of physical therapy in restoring normal function. She is content with this plan and will see me back as needed. Orders: Orders XR shoulder LT min 2V Today M25.512 - Pain in left shoulder PT Evaluation and Treatment Today S42.252A - Displaced fracture of greater tuberosity of left humerus, initial encounter for closed fracture Patient Instructions: Scribed for Mike Schmidt PA-C, by Maynor López phlebotomist medical lab assistant, on 07/22/2023 at 2:15 PM EST. I, Mike Schmidt PA-C, have personally reviewed and agree with the information entered by the scribe. Coding Level of Care Code Est Pt Level 3 (82161) Diagnoses Closed nondisplaced fracture of greater tuberosity of left humerus, initial encounter S42.255A Encounter type: initial encounter Fracture alignment: nondisplaced Fracture type: closed
[2023-07-22 14:33] VITALS: BMI 35.6
== END 2023-07-22 14:59 | disposition home or self-care (01) ==
LOC: HO.HOS 13:44
PROVIDERS: PCP Nurse Practitioner Family; Visit Provider Physician Assistant
DX: S42.255A Nondisplaced fracture of greater tuberosity of left humerus, initial encounter for closed fracture (principal)
CPT/HCPCS: 99213

== ENCOUNTER 2023-07-22 17:15 | Outpatient (REF) | payer OTHER, SELFPAY ==
--- NOTE | ~2023-07-22 | XR_ITS ---
EXAMINATION: XR SHOULDER, LEFT CLINICAL INFORMATION: Pain. COMPARISON: Radiograph left shoulder 06/10/2023. TECHNIQUE: Two views of the left shoulder. FINDINGS: Stable appearance of a minimally displaced left humeral greater tuberosity fracture compared to 06/10/2023. No interval injury. Mild degenerative osteoarthritis. No significant soft tissue abnormality. XR/XR shoulder LT min 2V IMPRESSION: Stable appearance of a minimally displaced left humeral greater tuberosity fracture compared to 06/10/2023.
== END 2023-07-22 17:16 | disposition home or self-care (01) ==
LOC: HO.HOSX 17:15
PROVIDERS: Visit Provider Physician Assistant
DX: M25.512 Pain in left shoulder (principal); S42.255A Nondisplaced fracture of greater tuberosity of left humerus, initial encounter for closed fracture; X58.XXXA Exposure to other specified factors, initial encounter; Y93.9 Activity, unspecified; Y92.9 Unspecified place or not applicable; Y99.8 Other external cause status
CPT/HCPCS: 73030; 99212

== ENCOUNTER 2023-08-01 11:00 | Outpatient (RCR) | payer OTHER, SELFPAY ==
--- NOTE | 2023-06-26 12:34 | MHC.PT.EP ---
[facility] [place] Office [place] Office [place] Office [address] [phone] F: [phone] F: [phone] F: [phone] F: [phone] Physical Therapy Plan of Care Date of Evaluation: 06/26/23 Date of Surgery: N/A Diagnosis: L humeral fx greater tuberosity (RL) Assessment: Jessica is a pleasant 38 yo female presenting to skilled physical therapy evaluation and treatment s/p minimally displaced L humeral fx of greater tuberosity. Pt reports sudden onset of pain beginning on 04/24/23 when she was play wrestling with her son. Recent imaging shows minimal bony healing and continues to indicate minimally displaced fx. She was wearing a sling until 06/10/23 when ortho recommended d/c. Pt has the most functional difficulty with ADLs, sleeping, reaching OH, and caring for children. Upon evaluation, pt presents with expected pain and decreased L shoulder PROM. Pt demonstrates postural deficits contributing to discomfort and periscapular tissue restriction. Jessica would benefit from skilled PT services to gradually increase shoulder ROM, strength and improve functional mobility toward PLOF. Pt is recommended to attend PT 2x/week for 8 weeks. Frequency and Duration: The patient will be seen 2x/week for 8 weeks Short Term Goals: Pt will demonstrate independence with initial HEP through teach-back method indicating proper compliance with PT Pt will increase L shoulder PROM by 15 deg in all planes Pt will be able to sleep 1 consecutive week without c/o interruption due to pain Functional Manager Goals: Pt will achieve pain-free L shoulder ROM WFL, allowing increased tolerance of ADLs Pt will achieve 5/5 L shoulder strength, necessary for ability to perform OH reaching activities Pt will improve functional mobility as noted through statistically significant increase in SPADI outcome measure Treatment Plan: Modalities to reduce pain, spasms and effusion. Manual therapy to restore motion and function. Therapeutic exercise to improve strength and flexibility. Neuromuscular re-education for posture and balance. Therapeutic activities to return to functional activities of daily living. Electronically signed by: Farida Espinosa PT, DPT Please sign and return to therapist. Thank you for your referral.
--- NOTE | 2023-08-29 11:43 | MHC.PT.DC ---
[facility] [place] Office [place] [facility] [place] [facility] [address] Oksana Gillespie [address] [phone] F: [phone] F: [phone] F: [phone] F: [phone] Physical Therapy Discharge Report Diagnosis: L humeral fx greater tuberosity (RL) Date of Surgery: N/A Date of Evaluation: 06/26/23 Date of Discharge: 08/29/23 Treatments to Date: 4 Cancellations to Date: 5 No Shows to Date: 1 Discharge Status: Visit Non-compliance Discharge Summary: Per last treatment note on 07/18/23: pt continues to demo excellent PROM/AAROM shoulder movements; however, her AROM is very poor. I am questioning RTC involvement but we have not been pushing AROM or strengthening at this time. I would like to see another xray that shows more bony healing before progressing her. She sees ortho 07/21. Continue to progress per pt's anderson and per healing on xray. The patient has not attended any other visits after the above stated date. She is being discharged for non-compliance. Electronically signed by: Farida Espinosa PT, DPT Please sign and return to therapist. Thank you for your referral.
== END 2023-08-29 11:43 | disposition home or self-care (01) ==
LOC: HO.PT 11:00
PROVIDERS: PCP Nurse Practitioner Family; Visit Provider Physician Assistant
DX: S42.252A Displaced fracture of greater tuberosity of left humerus, initial encounter for closed fracture (principal)
CPT/HCPCS: 97110; 97140; 97161

== ENCOUNTER 2023-08-08 18:03 | Emergency (ER) | payer OTHER, SELFPAY ==
[2023-08-08 18:15] VITALS: BP 126/93; BP 137/67; PULSE 88; PULSE 99; RESP 20; TEMP 36.6; O2SAT 97; O2SAT 98; BMI 32.3
--- NOTE | 2023-08-08 18:21 | ECG_ITS ---
Test Reason : ETOH Blood Pressure : / mmHG Vent. Rate : 097 BPM Atrial Rate : 097 BPM P-R Int : 162 ms QRS Dur : 094 ms QT Int : 374 ms P-R-T Axes : 040 010 026 degrees QTc Int : 474 ms Normal sinus rhythm Normal ECG No previous ECGs available Referred By: Arlene Mcginnis Electronically Signed By:LATESHA POSADAS MD
--- NOTE | 2023-08-08 18:21 | ED.OVERDOSE ---
HPI - Overdose General Chief Complaint: Overdose Stated Complaint: ETOH/Overdose, narcan given Time Seen by Provider: 08/08/23 18:20 Source: EMS Mode of arrival: EMS Limitations: altered mental status History of Present Illness HPI Narrative: Patient comes to the emergency room by ambulance. According to bystanders, patient was smoking marijuana and suddenly fell backwards. When PD arrived, patient had agonal breathing, was given 4 mg of intranasal Narcan. Shortly after EMS arrived and gave the patient an additional 0.5 mg of IV Narcan. Patient woke up immediately. Patient admits to using marijuana and drinking alcohol. Patient denies being on blood thinners. Related Data Previous Rx's ?Medication ?Instructions ?Recorded acetaminophen 300 mg-codeine 30 mg 1 tab PO Q8H PRN pain, severe 3 03/18/22 tablet days #5 tabs acetaminophen 500 mg tablet 500 mg PO Q6H PRN pain #30 tabs 05/07/23 (Tylenol Extra Strength) ibuprofen 600 mg tablet 600 mg PO Q6H PRN pain #30 tabs 05/07/23 oxycodone 5 mg tablet 5 mg PO Q6H PRN severe pain (scale 05/07/23 score 7-10) #7 tabs tramadol 50 mg tablet 50 mg PO BID 7 days #14 tabs 05/13/23 ibuprofen 800 mg tablet 800 mg PO Q8H PRN pain 30 days #90 06/10/23 tabs Allergies Allergy/AdvReac Type Severity Reaction Status Date / Time candy corn Allergy Unknown hives Uncoded 08/08/23 18:20 Motrin Allergy Unknown hives Uncoded 08/08/23 18:20 Review of Systems Review of Systems: Constitutional : No Weight loss, No Fever, No Chills, No Night Sweats, No Fatigue, No Malaise ENT/Mouth : No Hearing loss, No Ear Pain, No Nasal Congestion, No Sinus Pain, No Hoarseness, No sore throat, No Rhinorrhea, No Swallowing Difficulty Eyes: No Eye Pain, No Swelling, No Redness, No Foreign Body, No Discharge, No Vision Changes Cardiovascular : No Chest Pain, No SOB, No Dyspnea on Exertion, No Orthopnea, No Edema, No Palpitations Respiratory : No Cough, No Sputum, No Wheezing, No Smoke Exposure, No Dyspnea Gastrointestinal : No Nausea, No Vomiting, No Diarrhea, No Constipation, No abdominal Pain, No Hematochezia, No Melena Genitourinary : no irregular bleeding, No Dysuria, No Urinary Frequency, No Hematuria, No Urinary Incontinence, No Urgency, No Flank Pain, No Urinary Flow Changes, No Hesitancy Musculoskeletal : No joint pain, No Myalgias, No Joint Swelling Skin : No Skin Lesions, No rash Neuro : No Weakness, No Numbness, No Paresthesias, No Loss of Consciousness, No Dizziness, No Headache Psych : No Anxiety/Panic, No Depression, No SI/HI/AH/VH, No Social Issues, Heme/Lymph: No Bruising, No Bleeding,No Lymphadenopathy Endocrine : No Polyuria, No Polydipsia, No Temperature Intolerance [facility], [facility] Social History Social History Alcohol intake: current Alcohol type: hard liquor Patient Tobacco Use Status: Current everyday Tobacco user Smoked in Last 30 Days: Yes Use of substances other than those prescribed or required for medical reasons: Yes Substance Use Type: Marijuana Patient : No Current occupational status: unemployed Current occupation: right hand dominant Physical Exam Vital Signs: Vital Signs: Last Vital Signs Temp 97.8 F 08/08/23 18:15 Pulse 99 08/08/23 18:15 Resp 20 08/08/23 18:15 BP 126/93 H 08/08/23 18:15 Pulse Ox 97 08/08/23 18:15 O2 Del Method Room Air 08/08/23 18:15 BMI result Body Mass Index 32.3 Medical Decision Making Medical Decision Making MDM Narrative: -patient refused lab work and refused CT scan. -patient is awake, alert and oriented x3. Patient understands that without a CT scan, we will not be able to evaluate if there is a brain bleed, discussed with the patient that although she has no headache or neurological symptoms at this time, it is possible that she still may have a bleed. Patient states that she completely understands this but patient is very angry that she was brought to the emergency room -also, I discussed with the patient that given that she fell backwards, we do not know if this was secondary to alcohol, overdose or a cardiac event. Patient states that she does not care, admits that she drank alcohol, still refusing blood work and requesting to be discharged wants her sober ride arrives -patient is alert and oriented x3, able to hold a coherent conversation. Patient refusing any further care, waiting for her ride to pick her up Differential Diagnosis Differential Diagnoses: The differential diagnosis associated with the presentation includes (Polysubstance abuse, alcohol intoxication, intracranial bleed) Admission/Observation Consideration of admission/observation: Escalation of care including admission/observation considered (Can patient's initial presentation and EMS report, observation was considered) Discharge Plan Discharge Clinical Impression: Alcohol intoxication, Accidental overdose Patient Disposition: Home, Self-Care Instructions: Abuse of Alcohol (ED) Additional Instructions: Please follow-up with your primary care physician tomorrow. If you have any worsening or new symptoms, please return to the emergency room or call 911 Prescriptions: No Action acetaminophen-codeine 300-30 mg tablet 1 tab PO Q8H PRN (Reason: pain, severe) 3 Days Qty: 5 0RF oxycodone 5 mg tablet 5 mg PO Q6H PRN (Reason: severe pain (scale score 7-10)) Qty: 7 0RF Rx Instructions: Partial Fill upon patient request. acetaminophen [Tylenol Extra Strength] 500 mg tablet 500 mg PO Q6H PRN (Reason: pain) Qty: 30 0RF ibuprofen 600 mg tablet 600 mg PO Q6H PRN (Reason: pain) Qty: 30 0RF tramadol 50 mg tablet 50 mg PO BID 7 Days Qty: 14 0RF ibuprofen 800 mg tablet 800 mg PO Q8H PRN (Reason: pain) 30 Days Qty: 90 3RF Print Language: Panamanian
--- NOTE | 2023-08-08 18:34 | PC.NURSE ---
pt able to stand steady, ambulating with a steady gait. wants to refuse care and call a sober ride to take her home
--- NOTE | 2023-08-08 18:35 | PC.NURSE ---
MD Mcginnis ok with plan to d/c to a sober ride
[2023-08-08 19:01] VITALS: BP 126/93; PULSE 99; RESP 20; TEMP 36.6; O2SAT 97
== END 2023-08-08 19:03 | disposition left against medical advice (07) ==
LOC: HO.ED 18:58
PROVIDERS: Emergency Provider Emergency Medicine
DX: F10.129 Alcohol abuse with intoxication, unspecified (principal); T40.711A Poisoning by cannabis, accidental (unintentional), initial encounter; F17.210 Nicotine dependence, cigarettes, uncomplicated; Y90.9 Presence of alcohol in blood, level not specified; Y92.9 Unspecified place or not applicable
CPT/HCPCS: 93005; 99283; 99284

== ENCOUNTER → 2023-08-08 18:21 | Outpatient (BNV) | payer OTHER, SELFPAY | PROVIDERS: Emergency Provider Emergency Medicine; Visit Provider Internal Medicine Cardiovascular Disease | DX: F10.20 Alcohol dependence, uncomplicated (principal) | CPT/HCPCS: 93010 ==

== ENCOUNTER 2024-05-07 10:45 | Emergency (ER) | payer OTHER, SELFPAY ==
--- NOTE | ~2024-05-07 | XR_ITS ---
EXAMINATION: XR CHEST CLINICAL INFORMATION: fever COMPARISON: None available. TECHNIQUE: 2 views of the chest were obtained. FINDINGS: The lungs are well-expanded and clear of acute process. Heart size and pulmonary vascularity is normal. The left para hilar soft tissue density question focal infiltrate or atelectasis. The heart size and pulmonary vascularity is normal. No gross bony abnormality seen. XR/XR chest 2V IMPRESSION: Suspect left parahilar infiltrate versus atelectasis. Electronically signed by: Josh Alfonso MD 05/07/2024 03:43 PM EST
[2024-05-07 11:02] VITALS: BP 137/93; PULSE 100; RESP 19; TEMP 36.6; O2SAT 98; BMI 32.6
--- NOTE | 2024-05-07 11:05 | ECG_ITS ---
Test Reason : chest discomfort from throwing up Blood Pressure : / mmHG Vent. Rate : 106 BPM Atrial Rate : 106 BPM P-R Int : 154 ms QRS Dur : 092 ms QT Int : 346 ms P-R-T Axes : 036 009 043 degrees QTc Int : 459 ms Sinus tachycardia Anteroseptal infarct , age undetermined Nonspecific ST abnormality Abnormal ECG When compared with ECG of 08-AUG-2023 18:39, No significant change was found Referred By: Generic ED Physician Electronically Signed By:LATESHA POSADAS MD
[2024-05-07 12:15] LABS: Basophils Percent Auto 0.1 % (0-2); Eosinophils Percent Auto 0.1 % (0-4); Hematocrit 40.4 % (37.0-47.0); Hemoglobin 14.1 g/dl (12.0-16.0); Imm Gran Abs Auto 0.05 X10*3/uL (0.00-0.03); Imm Gran Pct Auto 0.4 % (0.0-0.4); Lymphocytes Absolute Auto 0.2 X10*3/uL (1.2-4.9); Lymphocytes Percent Auto 1.2 % (20-40); MANUAL DIFF FLAG SCAN; Mean Corpuscular HGB Conc 34.9 g/dl (31.0-35.0); Mean Corpuscular Hemoglobin 33.3 pg (27.0-33.0); Mean Corpuscular Volume 95.3 fL (80.0-98.0); Mean Platelet Volume 9.7 fL (9.4-12.3); Monocytes Absolute Auto 0.5 X10*3/uL (0.1-1.2); Monocytes Percent Auto 4.1 % (2-11); Neutrophils Absolute Auto 12.5 x10*3/uL (2.0-8.3); Neutrophils Percent Auto 94.1 % (45-73); Platelet Count 163 X10*3/uL (160-400); Red Blood Count 4.24 X10*6/uL (4.20-5.50); Red Cell Distribution Width 13.2 % (11.0-16.0); SCAN SMEAR FLAG 1; White Blood Count 13.3 X10*3/uL (4.8-10.8)
[2024-05-07 12:29] LABS: Alanine Aminotransferase 96 U/L (0-31); Albumin Level 4.8 g/dL (3.5-5.0); Alkaline Phosphatase 96 U/L (39-117); Anion Gap 15 (12-20); Aspartate Amino Transferase 97 U/L (5-31); Bilirubin Direct 0.5 mg/dL (0.0-0.5); Bilirubin Total 1.3 mg/dL (0.0-1.0); Blood Urea Nitrogen 7 mg/dL (9-16); Calcium 9.5 mg/dL (8.4-10.2); Carbon Dioxide 25 mmol/L (22-29); Chloride 98 mmol/L (96-108); Creatinine Clr Calc Pharmacy 119.4; Estimated Glomerular Filt Rate > 60; Glucose Random 133 mg/dL (60-115); Lipase 14 U/L (8-78); Potassium 3.4 mmol/L (3.3-5.1); Sodium 135 mmol/L (135-145); Total Protein 7.9 g/dL (6.5-8.0)
[2024-05-07 12:37] LABS: Magnesium 0.9 mg/dL (1.6-2.6)
--- NOTE | 2024-05-07 12:37 | ED_ITS ---
HPI - General Adult General Chief complaint: Nausea/Vomiting/Diarrhea Stated complaint: n/v/d Time Seen by Provider: 05/07/24 12:37 History of Present Illness ED Provider: Scarlet DIAZ narrative: The patient is a 38-year-old female who has been unwell for about 3 days. She has had diffuse body aches and a sense of fever. She has also had some nausea, vomiting, and diarrhea. No abdominal pain. Some coughing but not severe cough. She came to the emergency room because she was feeling so unwell today. Related Data Previous Rx's ?Medication ?Instructions ?Recorded acetaminophen 300 mg-codeine 30 mg 1 tab PO Q8H PRN pain, severe 3 03/18/22 tablet days #5 tabs acetaminophen 500 mg tablet 500 mg PO Q6H PRN pain #30 tabs 05/07/23 (Tylenol Extra Strength) ibuprofen 600 mg tablet 600 mg PO Q6H PRN pain #30 tabs 05/07/23 oxycodone 5 mg tablet 5 mg PO Q6H PRN severe pain (scale 05/07/23 score 7-10) #7 tabs tramadol 50 mg tablet 50 mg PO BID 7 days #14 tabs 05/13/23 ibuprofen 800 mg tablet 800 mg PO Q8H PRN pain 30 days #90 06/10/23 tabs azithromycin 250 mg tablet 250 mg PO DAILY 4 days #4 tabs 05/07/24 cefuroxime axetil 500 mg tablet 500 mg PO BID 8 days #16 tabs 05/07/24 ibuprofen 400 mg tablet 400 mg PO Q6H PRN pain #14 tabs 05/07/24 ondansetron 4 mg disintegrating 4 mg PO Q6H PRN nausea and 05/07/24 tablet vomiting #10 tabs Allergies Allergy/AdvReac Type Severity Reaction Status Date / Time candy corn Allergy Unknown hives Uncoded 05/07/24 11:03 Motrin Allergy Unknown hives Uncoded 05/07/24 11:03 Review of Systems 2 Review of Systems: Yes all other systems are reviewed and are negative [facility] Social History Social History Alcohol intake: current Alcohol type: hard liquor Patient Tobacco Use Status: Current everyday Tobacco user Substance Use Type: Marijuana Current occupational status: unemployed Current occupation: right hand dominant Physical Exam ED Vital Signs: Vital Signs - 24 hr 05/07/24 11:02 05/07/24 12:51 05/07/24 13:15 Temperature 98 F 98.1 F 103.7 F H Pulse Rate 100 103 H Respiratory Rate 19 18 Blood Pressure 137/93 H 136/84 Pulse Oximetry 98 98 Oxygen Delivery Method Room Air Room Air 05/07/24 14:38 05/07/24 16:00 05/07/24 17:08 Temperature 103.2 F H 101.0 F H 101.0 F H Pulse Rate 103 H 93 93 Respiratory Rate 16 16 16 Blood Pressure 131/93 H 140/82 H 140/82 H Pulse Oximetry 97 97 97 Oxygen Delivery Method Room Air Room Air Room Air BMI result Body Mass Index 32.6 Const Other: The patient is a 38-year-old female who looks mildly chronically ill. She was awake and alert. She was pleasant and cooperative. She looks as if she felt quite unwell but did not look in overt discomfort or respiratory distress. HENMT Other: Face is symmetrical. Mucous membranes moist. The posterior pharynx is unremarkable. Eyes General: appearance normal, both eyes and all related structures Sclerae: sclerae normal Neck Neck: Yes full ROM and Yes no lymphadenopathy Resp Other: Breath sounds are fairly clear bilaterally. No increased work of breathing. Cardio Rate: regular rate Rhythm: regular rhythm Heart sounds: S1 normal heart sound present, S2 normal heart sound present and Murmur heart sound present (No murmur heard) GI Other: The abdomen was soft and nontender. Skin Other: Skin is dry and unremarkable Neuro Other: The patient is awake and alert with a normal mental status. Cranial nerves are grossly intact. She moves her extremities normally and appropriately. Extrem Other: No calf swelling or tenderness. No peripheral edema. Medications Administered Discontinued Medications Generic Name Dose Route Start Last Admin Trade Name Freq PRN Reason Stop Dose Admin Azithromycin 500 mg 05/07/24 16:15 05/07/24 16:21 Azithromycin 500 Mg Tablet PO 05/07/24 16:16 500 mg ONCE ONE Administration Ceftriaxone Sodium 1 gm 05/07/24 16:15 05/07/24 16:21 Ceftriaxone Sodium 1 Gm Vial IVPUSH 05/07/24 16:16 1 gm ONCE ONE Administration Magnesium Sulfate 2 gm in 50 mls @ 150 mls/hr 05/07/24 12:43 05/07/24 14:44 Magnesium Sulfate/H2o IV 05/07/24 13:02 Infused ONCE ONE Infusion Sodium Chloride 1,000 mls @ 999 mls/hr 05/07/24 13:00 05/07/24 14:44 Ns IV 05/07/24 14:00 Infused .Q1H1M RADHA Infusion Sodium Chloride 1,000 mls @ 999 mls/hr 05/07/24 14:15 05/07/24 16:17 Ns IV 05/07/24 15:15 Infused .Q1H1M RADHA Infusion Acetaminophen 1,000 mg in 100 mls @ 400 mls/hr 05/07/24 14:34 05/07/24 16:17 Ofirmev IV 05/07/24 14:48 Infused ONCE ONE Infusion Ketorolac Tromethamine 10 mg 05/07/24 13:14 05/07/24 14:13 Ketorolac Tromethamine 15 Mg/Ml Vial IVPUSH 05/07/24 13:15 10 mg ONCE ONE Administration Ondansetron HCl 4 mg 05/07/24 12:47 05/07/24 13:00 Ondansetron Hcl 4 Mg/2 Ml Vial IVPUSH 05/07/24 12:48 4 mg ONCE ONE Administration Medical Decision Making Medical Decision Making [facility] Narrative: The patient is a 38-year-old female who says that she thought she had gotten sick after a friend of hers had had similar symptoms that lasted only about 24 hours. The patient thought that she probably had some kind of 24 hour bug. Her symptoms have persisted for 3 days however. She has had nausea and vomiting and diarrhea. She has also had a cough and body aches. Her rectal temperature was 103.7 degrees. My expectation was that she would test positive for influenza. She did not. Her abdomen seems benign. Urinalysis does not explain her fever. Chest x-ray suggests a possible pneumonia. I suspect this is probably the etiology of her fever. She seemed to feel better with symptomatic treatment and IV fluids. She was ultimately given 1 g of IV ceftriaxone and 500 mg of oral azithromycin. She will be discharged with a prescriptions for cefuroxime and azithromycin. Lab Data 05/07/24 12:12 05/07/24 12:12 Labs: Lab Results 05/07/24 05/07/24 05/07/24 Range/Units 12:12 13:00 14:32 WBC 13.3 H (4.8-10.8) X10*3/uL RBC 4.24 (4.20-5.50) X10*6/uL Hgb 14.1 (12.0-16.0) g/dl Hct 40.4 (37.0-47.0) % MCV 95.3 (80.0-98.0) fL MCH 33.3 H (27.0-33.0) pg MCHC 34.9 (31.0-35.0) g/dl RDW 13.2 (11.0-16.0) % Plt Count 163 (160-400) X10*3/uL MPV 9.7 (9.4-12.3) fL Immature Gran % (Auto) 0.4 (0.0-0.4) % Neut % (Auto) 94.1 H (45-73) % Lymph % (Auto) 1.2 L (20-40) % Swift % (Auto) 4.1 (2-11) % Eos % (Auto) 0.1 (0-4) % Baso % (Auto) 0.1 (0-2) % Lymph # (Auto) 0.2 L (1.2-4.9) X10*3/uL Swift # (Auto) 0.5 (0.1-1.2) X10*3/uL Eos # (Auto) 0.0 (0.0-0.4) X10*3/uL Baso # (Auto) 0.0 (0.0-0.2) X10*3/uL Abs Immat Gran (auto) 0.05 H (0.00-0.03) X10*3/uL Absolute Neuts (auto) 12.5 H (2.0-8.3) x10*3/uL Absolute Nucleated RBC 0.000 (0.0-0.012) X10*3/uL Nucleated RBC % (auto) 0.0 (0.0-0.2) /100WBC Smear Tech's Comments VERIFIED Sodium 135 (135-145) mmol/L Potassium 3.4 (3.3-5.1) mmol/L Chloride 98 (96-108) mmol/L Carbon Dioxide 25 (22-29) mmol/L Anion Gap 15 (12-20) BUN 7 L (9-16) mg/dL Creatinine 0.71 (0.5-1.4) mg/dL Estim Creat Clear Calc 119.4 Estimated GFR > 60 Random Glucose 133 H (60-115) mg/dL Lactic Acid 0.9 (0.5-2.0) mmol/L Calcium 9.5 (8.4-10.2) mg/dL Magnesium 0.9 L* (1.6-2.6) mg/dL Total Bilirubin 1.3 H (0.0-1.0) mg/dL Direct Bilirubin 0.5 (0.0-0.5) mg/dL AST 97 H (5-31) U/L ALT 96 H (0-31) U/L Alkaline Phosphatase 96 (39-117) U/L Total Creatine Kinase 159 H (26-140) U/L Troponin I High Sens < 2.7 (<3.5-17.0) ng/L C-Reactive Protein 11.61 H (< or = 0.50) mg/dL Total Protein 7.9 (6.5-8.0) g/dL Albumin 4.8 (3.5-5.0) g/dL Lipase 14 (8-78) U/L Urine Color [place] A Urine Appearance Cloudy Urine pH 5.5 (5.0-9.0) Ur Specific [place] >= 1.030 H (1.005-1.025) Urine Protein 100 (2+) H (Neg-Trace) mg/dL Urine Glucose (UA) Negative (Negative) mg/dL Urine Ketones 80 (Negative) mg/dL Urine Blood Negative (Negative) Urine Nitrite Positive H (Negative) Ur Leukocyte Esterase Small (1+) H (Negative) Urine RBC 0-2 (0-2) /HPF Urine WBC 0-5 (0-5) /HPF Ur Squamous Epith Cells >20 (0-2) /HPF Urine Bacteria 4+ (None Seen) Hyaline Casts 0-2 (0-2) /LPF Urine Test NEGATIVE (NEGATIVE) Ethyl Alcohol < 10 mg/dL Influenza Type A (PCR) NEGATIVE (Negative) Influenza Type B (PCR) NEGATIVE (Negative) RSV RNA Qual (PCR) NEGATIVE (Negative) SARS-CoV-2 RNA (RT-PCR) NEGATIVE (Negative) Discharge Plan Discharge Clinical Impression: Pneumonia Patient Disposition: Home, Self-Care Instructions: Pneumonia (ED) Additional Instructions: I believe that the reason you are having the fevers you has been having is that you have a pneumonia, an infection of the lung. You have been started on antibiotics. I have sent prescriptions for additional antibiotics to your pharmacy. I have also sent a prescription for ibuprofen and a prescription for a nausea medication. Please take the cefuroxime 2 times a day, next dose tomorrow morning. Please take the azithromycin once a day. Next dose tomorrow. You may use the ibuprofen as needed for discomfort or fever. I have sent a prescription for the antinausea medication ondansetron (Zofran) which you may use as needed for nausea. Please drink lot of fluids. Please work on following up with your regular doctor. Return to the emergency room if worse. Prescriptions: New cefuroxime axetil 500 mg tablet 500 mg PO BID 8 Days Qty: 16 0RF ibuprofen 400 mg tablet 400 mg PO Q6H PRN (Reason: pain) Qty: 14 0RF ondansetron 4 mg tablet,disintegrating 4 mg PO Q6H PRN (Reason: nausea and vomiting) Qty: 10 0RF azithromycin 250 mg tablet 250 mg PO DAILY 4 Days Qty: 4 0RF Rx Instructions: start on day 2 of therapy No Action acetaminophen-codeine 300-30 mg tablet 1 tab PO Q8H PRN (Reason: pain, severe) 3 Days Qty: 5 0RF oxycodone 5 mg tablet 5 mg PO Q6H PRN (Reason: severe pain (scale score 7-10)) Qty: 7 0RF Rx Instructions: Partial Fill upon patient request. acetaminophen [Tylenol Extra Strength] 500 mg tablet 500 mg PO Q6H PRN (Reason: pain) Qty: 30 0RF ibuprofen 600 mg tablet 600 mg PO Q6H PRN (Reason: pain) Qty: 30 0RF tramadol 50 mg tablet 50 mg PO BID 7 Days Qty: 14 0RF ibuprofen 800 mg tablet 800 mg PO Q8H PRN (Reason: pain) 30 Days Qty: 90 3RF Referrals: Martine shiva. Lazara Bridges [Provider Group] (pneumonia) Interventions: ED Discharge Assessment Last Done: 05/07/24 17:08 Discharge Date/Time: 05/07/24 17:08 Print Language: Ukrainian
[2024-05-07 12:38] LABS: Troponin-I High Sensitivity < 2.7 ng/L (<3.5-17.0)
[2024-05-07 12:51] VITALS: BP 136/84; PULSE 103; RESP 18; TEMP 36.7; O2SAT 98
[2024-05-07 12:59] LABS: SLIDE REVIEW VERIFIED
[2024-05-07] MEDS: 0.9 % Sodium Chloride 1,000 ML 999 ML IV ×2 (13:00→14:27)
[2024-05-07] MEDS: Magnesium Sulfate/H2O 2 GM/50 ML PIGGYBACK IV (13:00)
[2024-05-07] MEDS: ondansetron HCL 4 MG/2 ML VIAL IVPUSH (13:00)
[2024-05-07 13:10] LABS: Ethanol < 10 mg/dL
[2024-05-07 13:10] LABS: UPreg QC Valid YES; Urine Pregnancy NEGATIVE (NEGATIVE)
[2024-05-07 13:15] VITALS: TEMP 39.8
[2024-05-07 13:18] LABS: Appearance Urine Cloudy; Color Urine Orange; Glucose Urine UA Negative (Negative); Leukocyte Esterase Urine Small (1+) (Negative); Nitrite Urine Positive (Negative); PH 5.5 (5.0-9.0); Specific Gravity - Urine >= 1.030 (1.005-1.025); UMIC TRIGGER UACC YES; Urine Blood Negative (Negative); Urine Ketones 80 mg/dL (Negative); Urine Protein 100 (2+) mg/dL (Neg-Trace)
[2024-05-07 13:19] LABS: Bacteria Urine 4+ (None Seen); Hyaline Casts Urine 0-2 /LPF (0-2); RBC Urine 0-2 /HPF (0-2); Squamous Epithelial Cell Urine >20 /HPF (0-2); UACC Culture Trigger YES; WBC Urine 0-5 /HPF (0-5)
[2024-05-07 13:44] LABS: Influenza A PCR NEGATIVE (Negative); Influenza B PCR NEGATIVE (Negative); Resp Syncy Virus RNA Qual PCR NEGATIVE (Negative); SARS COV2 PCR INHOUSE NEGATIVE (Negative)
[2024-05-07] MEDS: Ketorolac Tromethamine 15 MG/ML VIAL 10 MG IVPUSH (14:13)
[2024-05-07 14:38] VITALS: BP 131/93; PULSE 103; RESP 16; TEMP 39.6; O2SAT 97
[2024-05-07 14:39] LABS: C Reactive Protein 11.61 mg/dL (< or = 0.50)
[2024-05-07 14:54] LABS: Lactic Acid 0.9 mmol/L (0.5-2.0)
[2024-05-07] MEDS: Acetaminophen 1,000 MG/100 ML PIGGYBACK 400 MG IV (14:59)
[2024-05-07 16:00] VITALS: BP 140/82; PULSE 93; RESP 16; TEMP 38.3; O2SAT 97
[2024-05-07] MEDS: cefTRIAXone sodium 1 GM VIAL IVPUSH (16:21)
[2024-05-07] MEDS: Azithromycin 500 MG TABLET PO (16:21)
[2024-05-07 17:08] VITALS: BP 140/82; PULSE 93; RESP 16; TEMP 38.3; O2SAT 97
== END 2024-05-07 17:08 | disposition home or self-care (01) ==
PROVIDERS: Emergency Provider Emergency Medicine
DX: J18.9 Pneumonia, unspecified organism (principal); R00.0 Tachycardia, unspecified; R07.89 Other chest pain; R11.2 Nausea with vomiting, unspecified; M79.10 Myalgia, unspecified site; R50.9 Fever, unspecified; R05.9 Cough, unspecified; F17.210 Nicotine dependence, cigarettes, uncomplicated; Z79.899 Other long term (current) drug therapy; Z03.818 Encounter for observation for suspected exposure to other biological agents ruled out
CPT/HCPCS: 0241U; 36415; 71046; 80048; 80076; 80307; 81001; 81025; 82550; 83605; 83690; 83735; 84484; 85025; 86140; 87040; 87086; 93005; 96361; 96374; 96375; 99284; J0131; J0696; J1885; J2405; J3475

== ENCOUNTER → 2024-05-07 11:05 | Outpatient (BNV) | payer OTHER, SELFPAY | PROVIDERS: Emergency Provider Emergency Medicine; Visit Provider Internal Medicine Cardiovascular Disease | DX: R07.89 Other chest pain (principal) | CPT/HCPCS: 93010 ==

== ENCOUNTER → 2024-05-07 14:06 | Outpatient (BNV) | payer OTHER, SELFPAY | PROVIDERS: Emergency Provider Emergency Medicine; Visit Provider Radiology Diagnostic Radiology | DX: R11.2 Nausea with vomiting, unspecified (principal); R19.7 Diarrhea, unspecified | CPT/HCPCS: 71046 ==

== ENCOUNTER 2025-02-02 14:31 | Emergency (ER) | payer OTHER, SELFPAY ==
--- OUTSIDE RECORDS SUMMARY | 2024-09-23 08:45 | XMS_ITS ---
Author Organization [address] [id number] Care Team Providers Care Business Intelligence Director Name Role Phone BOLIVAR BROWN Unavailable [phone] REASON FOR VISIT Nexplanon Out, Nexplanon In Social History Sex Assigned At : Social History Observation Description Sex Assigned At Female Encounters Encounter Location Date Provider Diagnosis [address] [id number] BOLIVAR BROWN Plan Of Treatment No Information Progress Notes * Roland MARTÍNEZMilagroOB: [birth year] (39 yo F)Acc No.[id number]:09/23/2024 Progress Note Patient: Jessica Golden Provider: Leatha BROWN :1985 A ge:39 Y S ex:Female Date:09/23/2024 Address:[address] [place], [id number] Subjective: * Chief Complaints: * N explanon Out, Nexplanon In Billing Information: * Procedure Codes: * Electronic signature of COLIN BROWN CNM on 02/02/2025 at 08:19 PM EDT Sign off status: Pending * Provider: Leatha BROWN Date: 0 09/23/2024 Generated for Betty cannon/Fakalyn/eTransmitting on: 0 02/02/2025 08:19 PM EDT
--- OUTSIDE RECORDS SUMMARY | 2024-10-12 07:00 | XMS_ITS ---
Author Organization [facility] Address [address] [place] [id number] Care Team Providers Care Rabble Furnace Tender Name Role Phone BOLIVAR BROWN Unavailable [phone] REASON FOR VISIT labs Social History Sex Assigned At : Social History Observation Description Sex Assigned At Female Encounters Encounter Location Date Provider Diagnosis [facility] [address] [place], [place] [id number] 01/2025 BOLIVAR BROWN Plan Of Treatment No Information Progress Notes * Roland EUBANKSMilagroOB: [birth year] (39 yo F)Acc No.[id number]:10/12/2024 LAB Patient: Jessica Golden Provider: Leatha BROWN :1985 A ge:39 Y S ex:Female Date:10/12/2024 Address: [address] [id number] Subjective: * Chief Complaints: * L abs * Electronic signature of COLIN BROWN CNM on 02/02/2025 at 08:19 PM EDT Sign off status: Pending * Provider: Leatha BROWN Date: 0 10/12/2024 Generated for Betty cannon/Emiliano/Rosieitting on: 0 02/02/2025 08:19 PM EDT
--- NOTE | ~2025-02-02 | XR_ITS ---
EXAMINATION: XR CHEST 2 VIEWS HISTORY: CP, SOB COMPARISON: Comparison is made with the prior examination dated 05/07/2024. FINDINGS: PA and lateral views of the chest are submitted. The lungs are expanded and clear. There is no pleural effusion, pneumothorax, or pulmonary vascular congestion. The heart is normal in size. The bones are intact. XR/XR chest 2V IMPRESSION: No acute cardiopulmonary abnormality. Electronically signed by: Dionicio Vazquez MD 02/02/2025 03:28 PM EDT
[2025-02-02 14:54] VITALS: BP 113/77; PULSE 85; RESP 18; TEMP 36.6; O2SAT 96; BMI 35.8
--- NOTE | 2025-02-02 14:57 | ED.GENADULT ---
HPI - General Adult General Chief complaint: Chest Pain Stated complaint: Pulled muscle, back/chest pain, SOB Time Seen by Provider: 02/02/25 19:49 Related Data Previous Rx's ?Medication ?Instructions ?Recorded acetaminophen 300 mg-codeine 30 mg 1 tab PO Q8H PRN pain, severe 3 03/18/22 tablet days #5 tabs acetaminophen 500 mg tablet 500 mg PO Q6H PRN pain #30 tabs 05/07/23 (Tylenol Extra Strength) ibuprofen 600 mg tablet 600 mg PO Q6H PRN pain #30 tabs 05/07/23 oxycodone 5 mg tablet 5 mg PO Q6H PRN severe pain (scale 05/07/23 score 7-10) #7 tabs tramadol 50 mg tablet 50 mg PO BID 7 days #14 tabs 05/13/23 ibuprofen 800 mg tablet 800 mg PO Q8H PRN pain 30 days #90 06/10/23 tabs azithromycin 250 mg tablet 250 mg PO DAILY 4 days #4 tabs 05/07/24 cefuroxime axetil 500 mg tablet 500 mg PO BID 8 days #16 tabs 05/07/24 ibuprofen 400 mg tablet 400 mg PO Q6H PRN pain #14 tabs 05/07/24 ondansetron 4 mg disintegrating 4 mg PO Q6H PRN nausea and 05/07/24 tablet vomiting #10 tabs cyclobenzaprine 10 mg tablet 10 mg PO TID PRN muscle spasm #10 02/02/25 tabs ketorolac 10 mg tablet 10 mg PO Q8H PRN pain #12 tabs 02/02/25 Allergies Allergy/AdvReac Type Severity Reaction Status Date / Time candy corn Allergy Unknown hives Uncoded 02/02/25 15:00 Motrin Allergy Unknown hives Uncoded 02/02/25 15:00 [facility] Social History Social History Alcohol intake: current Alcohol type: hard liquor Patient Tobacco Use Status: Current everyday Tobacco user Substance Use Type: Marijuana Advance Directives: No Advance Directives Information Provided: No Current occupational status: unemployed Current occupation: right hand dominant Physical Exam ED Exam Exam: Appearance: Alert. Oriented X3. No acute distress. Eyes: Pupils equal, round and reactive to light. ENT: Pharynx normal. Neck: Normal inspection. Neck supple. No lymph nodes noted. No crepitus CVS: Normal heart rate and rhythm. Pulses normal. Normal S1 and S2 Respiratory: No respiratory distress. Breath sounds normal. No Wheezing. No rales Abdomen: Soft and nontender. No rigidity. No distention. Back: Pain to palpation in the right upper back and supraclavicular area, pain to palpation under the axilla with abduction Skin: Skin warm and dry. Normal skin color. Normal skin turgor. Extremities: No lower extremity edema. No Lacerations. No Rash Neuro: Oriented X 3. No motor deficit. No sensory deficit. Moving all extremities. No slurred speech. CN 2 through 12 grossly intact Psych: calm, cooperative, normal affect Vital Signs: Vital Signs - 24 hr 02/02/25 14:54 02/02/25 20:25 Temperature 97.9 F 98.0 F Pulse Rate 85 72 Respiratory Rate 18 16 Blood Pressure 113/77 131/75 Pulse Oximetry 96 100 Oxygen Delivery Method Room Air Room Air BMI result Body Mass Index 35.8 Course Course Course Narrative: This is an RME: Additional HPI, ROS, PE not included below will be deferred to primary provider. RME assessment and note performed by: Ailyn Yap PA-C This is a 30-mcfs-etj-female who presents to the ER with complaints of chest pain, shortness for breath, back pain which started 2 weeks ago. No recent travel, surgery, or hospitalizations. She does have a Nexplanon. She is a smoker. No history of blood clots. Plan: Labs, EKG, chest x-ray, further ER evaluation needed. Medications Administered Discontinued Medications Generic Name Dose Route Start Last Admin Trade Name Freq PRN Reason Stop Dose Admin Cyclobenzaprine HCl 10 mg 02/02/25 21:30 02/02/25 21:37 Cyclobenzaprine Hcl 10 Mg Tablet PO 02/02/25 21:31 10 mg ONCE ONE Administration Ketorolac Tromethamine 60 mg 02/02/25 21:30 02/02/25 21:35 Ketorolac Tromethamine 60 Mg/2 Ml Vial IM 02/02/25 21:31 60 mg ONCE ONE Administration Medical Decision Making Medical Decision Making [facility] Narrative: My interpretation of EKG: Normal sinus rhythm, heart rate 78, no ST segment depression or elevation, no T-wave inversion, QTC 467 My interpretation of labs: No significant abnormality in patient's hematology and chemistry, hCG negative, troponin negative, serology negative for influenza and COVID Chest x-ray does not show any acute abnormality I discussed the physical exam with the patient, patient likely has pain secondary to a musculoskeletal injury. Less likely to be of cardiac or pulmonary origin Patient was given a dose of IM ketorolac per her request in p.o. cyclobenzaprine. Patient's mother will be picking her up shortly Differential Diagnosis Differential Diagnoses: The differential diagnosis associated with the presentation includes (Musculoskeletal pain, costochondritis, shingles) Admission/Observation Consideration of admission/observation: Escalation of care including admission/observation considered (Given patient's length of symptoms and presentation, observation was considered) Lab Data MDM Lab Attestation statement: I reviewed the patient's lab results. 02/02/25 15:19 02/02/25 15:19 Labs: Lab Results 02/02/25 02/02/25 Range/Units 15:19 15:20 WBC 8.2 (4.8-10.8) X10*3/uL RBC 4.03 L (4.20-5.50) X10*6/uL Hgb 11.7 L (12.0-16.0) g/dl Hct 35.8 L (37.0-47.0) % MCV 88.8 (80.0-98.0) fL MCH 29.0 (27.0-33.0) pg MCHC 32.7 (31.0-35.0) g/dl RDW 13.9 (11.0-16.0) % Plt Count 308 D (160-400) X10*3/uL MPV 9.8 (9.4-12.3) fL Immature Gran % (Auto) 0.2 (0.0-0.4) % Neut % (Auto) 65.3 (45-73) % Lymph % (Auto) 24.9 (20-40) % Alexander % (Auto) 8.1 (2-11) % Eos % (Auto) 1.1 (0-4) % Baso % (Auto) 0.4 (0-2) % Lymph # (Auto) 2.0 (1.2-4.9) X10*3/uL Alexander # (Auto) 0.7 (0.1-1.2) X10*3/uL Eos # (Auto) 0.1 (0.0-0.4) X10*3/uL Baso # (Auto) 0.0 (0.0-0.2) X10*3/uL Abs Immat Gran (auto) 0.02 (0.00-0.03) X10*3/uL Absolute Neuts (auto) 5.3 (2.0-8.3) x10*3/uL Absolute Nucleated RBC 0.000 (0.0-0.012) X10*3/uL Nucleated RBC % (auto) 0.0 (0.0-0.2) /100WBC PT 10.4 L (10.9-12.4) SEC INR 0.9 (0.9-1.1) Sodium 140 (135-145) mmol/L Potassium 4.2 D (3.3-5.1) mmol/L Chloride 109 H (96-108) mmol/L Carbon Dioxide 26 (22-29) mmol/L Anion Gap 9 L (12-20) BUN 21 H (9-16) mg/dL Creatinine 0.91 (0.5-1.4) mg/dL Estim Creat Clear Calc 100.3 Estimated GFR > 60 Random Glucose 90 (60-115) mg/dL Calcium 8.8 D (8.4-10.2) mg/dL Magnesium 1.8 (1.6-2.6) mg/dL Total Bilirubin 0.2 (0.0-1.0) mg/dL Direct Bilirubin < 0.2 (0.0-0.5) mg/dL AST 18 (5-31) U/L ALT 15 (0-31) U/L Alkaline Phosphatase 123 H (39-117) U/L Troponin I High Sens < 2.7 (<3.5-17.0) ng/L Total Protein 6.3 L (6.5-8.0) g/dL Albumin 4.0 (3.5-5.0) g/dL Beta HCG, Quant < 2 mIU/mL COVID-19 (VAIBHAV) Negative (Negative) COVID-19 Clin Com See Note Influenza Type A (BASILIO) Negative (Negative) Influenza Type B (BASILIO) Negative (Negative) Influenza A & B Note See Note Independent Interpretation I performed an independent interpretation of an: EKG and Plain X-Ray Radiology Impression Discussion of test interpretation with radiology: I have reviewed the radiologist's reading. Radiologist Impression: PA and lateral views of the chest are submitted. The lungs are expanded and clear. There is no pleural effusion, pneumothorax, or pulmonary vascular congestion. The heart is normal in size. The bones are intact. XR/XR chest 2V IMPRESSION: No acute cardiopulmonary abnormality. Critical Care Time Critical Care Time Critical Care Time: Yes Total Critical Care Time: 35 Attestation: I have personally provided critical care time. Time includes review of lab data, radiology results, discussion with consultants, and monitoring for potential decompensation. Intervention performed as documented. Discharge Plan Discharge Clinical Impression: Musculoskeletal chest pain Patient Disposition: Home, Self-Care Instructions: Chest Wall Pain (ED) Additional Instructions: Please follow-up with your primary care physician tomorrow. If you have any worsening or new symptoms, please return to the emergency room or call 911 Prescriptions: New ketorolac 10 mg tablet 10 mg PO Q8H PRN (Reason: pain) Qty: 12 0RF Rx Instructions: maximum total duration of 5 days from all oral, intranasal, or parenteral formulations cyclobenzaprine 10 mg tablet 10 mg PO TID PRN (Reason: muscle spasm) Qty: 10 0RF No Action acetaminophen-codeine 300-30 mg tablet 1 tab PO Q8H PRN (Reason: pain, severe) 3 Days Qty: 5 0RF oxycodone 5 mg tablet 5 mg PO Q6H PRN (Reason: severe pain (scale score 7-10)) Qty: 7 0RF Rx Instructions: Partial Fill upon patient request. acetaminophen [Tylenol Extra Strength] 500 mg tablet 500 mg PO Q6H PRN (Reason: pain) Qty: 30 0RF ibuprofen 600 mg tablet 600 mg PO Q6H PRN (Reason: pain) Qty: 30 0RF cefuroxime axetil 500 mg tablet 500 mg PO BID 8 Days Qty: 16 0RF ibuprofen 400 mg tablet 400 mg PO Q6H PRN (Reason: pain) Qty: 14 0RF ondansetron 4 mg tablet,disintegrating 4 mg PO Q6H PRN (Reason: nausea and vomiting) Qty: 10 0RF azithromycin 250 mg tablet 250 mg PO DAILY 4 Days Qty: 4 0RF Rx Instructions: start on day 2 of therapy tramadol 50 mg tablet 50 mg PO BID 7 Days Qty: 14 0RF ibuprofen 800 mg tablet 800 mg PO Q8H PRN (Reason: pain) 30 Days Qty: 90 3RF Print Language: Bulgarian
--- NOTE | 2025-02-02 15:02 | ECG_ITS ---
Test Reason : CP Blood Pressure : */* mmHG Vent. Rate : 78 BPM Atrial Rate : 78 BPM P-R Int : 158 ms QRS Dur : 82 ms QT Int : 410 ms P-R-T Axes : 79 69 56 degrees QTcB Int : 467 ms Artifact in tracing Normal sinus rhythm Normal EKG When compared with ECG of 07-May-2024 12:03, ST no longer depressed in Lateral leads Referred By: Ailyn Yap Electronically Signed By: ERIC PATEL
[2025-02-02 15:23] LABS: MANUAL DIFF FLAG NO
[2025-02-02 15:26] LABS: Hematocrit 35.8 % (37.0-47.0); Hemoglobin 11.7 g/dl (12.0-16.0); Imm Gran Abs Auto 0.02 X10*3/uL (0.00-0.03); Imm Gran Pct Auto 0.2 % (0.0-0.4); Lymphocytes Absolute Auto 2.0 X10*3/uL (1.2-4.9); Mean Corpuscular HGB Conc 32.7 g/dl (31.0-35.0); Mean Corpuscular Hemoglobin 29.0 pg (27.0-33.0); Mean Corpuscular Volume 88.8 fL (80.0-98.0); NRBC Abs Auto 0.000 X10*3/uL (0.0-0.012); NRBC Pct Auto 0.0 /100WBC (0.0-0.2); Platelet Count 308 X10*3/uL (160-400); Red Blood Count 4.03 X10*6/uL (4.20-5.50); White Blood Count 8.2 X10*3/uL (4.8-10.8)
[2025-02-02 15:35] LABS: INTERNATIONAL NORM RATIO 0.9 (0.9-1.1); Prothrombin Time 10.4 SEC (10.9-12.4)
[2025-02-02 15:46] LABS: COVID-19 Test Negative (Negative); IDNOW Serial# 55D5AD1C; IDNOW Serial# 6674DD1D; Influenza B2 Negative (Negative)
[2025-02-02 15:46] LABS: Alanine Aminotransferase 15 U/L (0-31); Albumin Level 4.0 g/dL (3.5-5.0); Alkaline Phosphatase 123 U/L (39-117); Anion Gap 9 (12-20); Aspartate Amino Transferase 18 U/L (5-31); Blood Urea Nitrogen 21 mg/dL (9-16); Calcium 8.8 mg/dL (8.4-10.2); Carbon Dioxide 26 mmol/L (22-29); Chloride 109 mmol/L (96-108); Creatinine Clr Calc Pharmacy 100.3; Estimated Glomerular Filt Rate > 60; Magnesium 1.8 mg/dL (1.6-2.6); Potassium 4.2 mmol/L (3.3-5.1); Sodium 140 mmol/L (135-145); Total Protein 6.3 g/dL (6.5-8.0)
[2025-02-02 15:48] LABS: Troponin-I High Sensitivity < 2.7 ng/L (<3.5-17.0)
--- OUTSIDE RECORDS SUMMARY | 2025-02-02 20:19 | XMS_ITS | Clinical Summary ---
Author Organization [facility] Address [address] [place] [id number] Phone Care Team Providers Care Armature Coil Winder Name Role Phone Hortensia Tucker MOLASSES PREPARER Unavailable [phone] Pcp, Unknown Primary Care Provider Unavailabl e Medications sertraline (ZOLOFT) 50 MG tablet 1 tablet Orally Once a day 08/16/2016 Active multivitamins Chew Orally daily 08/16/2016 Active Family History Medical History Relation Comments Other Father overdose at age 32 Diabetes mellitus Maternal Grandfather Other Mother deafness, had ge rman measles during Relation Status Comments Father Maternal Grandfather Mother Social History Tobacco Use Types Packs/Day Years Used Date Smoking Tobacco: Never Assessed Education Answer Date Recorded Are you interested in more education? Not on larissa e 08/31/2022 Are you concerned about learning? Not on file 08/31/2022 No 08/31/2022 No 08/31/2022 Digital Access Answer Date Recorded No 09/29/2022 No 09/29/2022 Reliable internet access at home? Not on file 09/29/2022 Device with a working camera? Not on file Comments Unknown Sex and Gender Information Value Date Recorded Sex Assigned at Not on file Legal Sex Female 10:51 AM EDT Gender Identity Not on file Sexual Orientation Not on file Last Filed Vital Signs Vital Sign Reading Time Taken Comments Blood Pressure 130/80 02/14/2017 11:32 AM EDT Pulse 62 02/14/2017 11:32 AM EDT Temperature 36.2 C (97.1 F) 02/14/2017 11:32 AM EDT Respiratory Rate 16 02/14/2017 11:32 AM EDT Oxygen Saturation - - Inhaled Oxygen Concentration - - Weight 104.8 kg (231 lb) 02/14/2017 11:32 AM EDT Height 167.6 cm (5' 6 ) 02/14/2017 11:32 AM EDT Body Mass Index 37.28 02/14/2017 11:32 AM EDT Plan of Treatment Health Maintenance Due Date Last Done Comments Adult Td,Tdap Booster 1986 DEPRESSION SCREENING 1998 SMOKING Hx and SMOKELESS TOB ACCO SCREENING 1999 HEPATITIS C SCREENING 2004 HIV ONE-TIME SCREENING (18-6 5 YEARS) 2004 PAP SMEAR 2007 INFLUENZA VACCINE (#1) 2024 COVID-19 VACCINE ( - 2023-2 5 season) 2025 HEPATITIS A VACCINES Aged Out No long er eligible based on patient's age to complete this topic HIB VACCINES Aged Out No longer eligi ble based on patient's age to complete this topic MENINGOCOCCAL VACCINES (ACWY) Aged Out No longer eligible based on patient's age to complete this topic MENINGOCOCCAL VACCINES (B) Aged Out N o longer eligible based on patient's age to complete this topic PNEUMOCOCCAL VACCINES (0-49 years) Aged Out No longer eligible based on patient's age to complete this topic Medical Devices Not on file Care Teams Armature Coil Winder Relationship Specialty Start Date End Date Pcp, Unknown PCP - General 12/04/21 Hortensia Tucker NP [email or web address] Historical LMR Provider 02/19/17 Additional Source Comments The information contained in this document represents components of the legal health record. It is not the complete legal health record.[facility]
--- OUTSIDE RECORDS SUMMARY | 2025-02-02 20:20 | XMS_ITS | Patient Health Record ---
Author Organization [facility] Address [address] [place] [phone] Care Team Providers Care Curtain Worker Name Role Phone BOLIVAR BROWN Unavailable [phone] Allergies No Known Allergies Reason For Referral No Information Medications Medication SIG (Take, Route, Fr equency, Duration) Notes Start Date End Date Status Lexapro Active Nexplanon 68 MG Implant as directed Subc utaneous stat; Duration: 1 days 10/07/2024 Active Social History Sex Assigned At : Social History Observation Description Sex Assigned At Female Social History HIV Risk Assessment Social Info Question Answer Notes Additional Questions Is an HIV Risk Asse ssment being conducted? No Reproductive Life Plan: Social Info Question Answer Notes Reproductive Life Plan: Do you want to have chil dren? No, I don't want to have children How sure are you that you will be able to use your control method without any problems? Very sure People's plans change. Is it possible you or your partner could ever decide to become ? No Human Trafficking: Social Info Question Answer Notes Human Trafficking Experienced: No PrEP for HIV: Social Info Question Answer Notes PrEP for HIV Is the client massimo alanis in beginning/continuing PrEP for HIV? No Sexual History: Social Info Question Answer Notes Sexual History: Sexual History Reviewed: Partner s, Practices, Protection/Past STIs Currently sexually active? Yes Sexually active with: Men Your sexual activities include: oral intercourse, vaginal intercourse Do you use condoms? No Date of last unprotected intercourse: 06/06/2024 Number of partners in past 3 months: 1 Number of partners in past year: 1 Does your partner(s) currently have any STIs? No Counseling Provided: Social Info Question Answer Notes Counseling Provided Please indicate the length of time, in minutes, that counseling was provided. 5 Counseling Was Provided By: nisha Drugs/Alcohol: Social Info Question Answer Notes Drug/Alcohol Use Do you or have you used drugs? Yes, c urrently By what route are you taking drugs? Please check all that apply: Smoking Which drug(s) do you smoke? Marijuana When did you last use? Do you want to quit drugs? No Do you or have you used alcohol? 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 Yes DO NOT USE - Has partner traveled to any Zika af fected areas? Yes DO NOT USE - Is client planning to travel to any Zika affected areas? No DO NOT USE - Is partner planning to travel to an y Zika affected areas? No Tobacco Use: Social Info Question Answer Notes Tobacco Use: Do you/have you used tobacco? Yes, jessie awan [employer] cigarettes Tobacco Smoking Status Current every day smoker Section Notes: Client would like to schedul e lab visit for STI testing Vital Signs Blood pressure diastolic 88 mm Hg 10/07/2024 Height 5'5 in 10/07/2024 Blood pressure systolic 132 mm Hg 10/07/2024 Weight 201.6 lbs 10/07/2024 BMI 33.54 kg/m2 10/07/2024 Encounters Encounter Location Date Provider Diagnosis [address] [id number] 10/07/2024 BOLIVAR BROWN Nexplanon Removal and Insertion - Same Day Z30.49 ; Other problems related to lifestyle Z72.89 ; Encounter for screening for infections with a predominantly sexual mode of transmission Z11.3 ; HIV Screening Z11.4 and Encounter for screening for other viral diseases Z11.59 Assessments Encounter Date Diagnosis (ICD Code) Assessment Notes Treatment Notes Treatment Clinical Notes Section Notes 10/07/2024 Other problems related to lifestyle (ICD-10 - Z72.89) Discussed STI risks, screenings that are available through [facility] and safe sex. Clt aware of lab processing times and how to view results on portal and how positive results will be communicated Clt to return for lab work- running late to pickup her daughter. Will return on Saturday Need 2 out of 3 Sections from A-C Section A) Problems (only need one from below) Section B) Data (need at least one of the following categories in this section) Category 1: (Choose three of the following): Order Unique tests Section C) Risk (any one of the following) Prescription drug management (this counts for the whole section) 10/07/2024 Nexplanon Removal and Insertion - Same Day (ICD-10 - Z30.49) Reviewed control options. No CI's to Nexplanon exchange today. Clt is aware that the current device is . Clt with no concerns for at this time and has opted to defer a test today. Reviewed benefits and risks to Nexplanon. Consent reviewed and signed. Clt tolerated procure well. BUM x 7days. After care instructions reviewed and handout given. FDA approved x 3 yrs but extended use for prevention x 5yrs supported through research Need 2 out of 3 Sections from A-C Section A) Problems (only need one from below) Section B) Data (need at least one of the following categories in this section) Category 1: (Choose three of the following): Order Unique tests Section C) Risk (any one of the following) Prescription drug management (this counts for the whole section) 10/07/2024 Encounter for screening for infections with a predominantly sexual mode of transmission (ICD-10 - Z11.3) Need 2 out of 3 Sections from A-C Section A) Problems (only need one from below) Section B) Data (need at least one of the following categories in this section) Category 1: (Choose three of the following): Order Unique tests Section C) Risk (any one of the following) Prescription drug management (this counts for the whole section) 10/07/2024 HIV Screening (ICD-10 - Z11.4) Need 2 out of 3 Sections from A-C Section A) Problems (only need one from below) Section B) Data (need at least one of the following categories in this section) Category 1: (Choose three of the following): Order Unique tests Section C) Risk (any one of the following) Prescription drug management (this counts for the whole section) 10/07/2024 Encounter for screening for other viral diseases (ICD-10 - Z11.59) Need 2 out of 3 Sections from A-C Section A) Problems (only need one from below) Section B) Data (need at least one of the following categories in this section) Category 1: (Choose three of the following): Order Unique tests Section C) Risk (any one of the following) Prescription drug management (this counts for the whole section) Plan Of Treatment No Information Insurance Providers Payer Name Payer Address Payer Phone Subscriber Number Group Number Insured Name Patient Relationship to Insured Coverage Start Date Coverage End Date [place] ATT CLAIMS [address] [place] [id number] Jessica Martínez Self - patient is the insured Medical (General) History Medical History History ICD Code Anxiety/depression - in therapy
[2025-02-02 20:25] VITALS: BP 131/75; PULSE 72; RESP 16; TEMP 36.7; O2SAT 100
--- NOTE | 2025-02-02 20:50 | PC.NURSE ---
capture managerHarika Dias obtained vitals and attempted to place ot on lunchroom monitor. PT agitated and aggressive stating zuleima been waiting 7 fucking hours and now you guys want to put me on the monitor Pt yelling many expletives to staff. TW informed pt that tw would not be able to put opt on monitor until she is able to calm down. PT ultimately able to be placed on monitor. PT tearful and continuing to curse and yell once tw was out of the room. Plan of care ongoing
[2025-02-02 21:49] VITALS: BP 131/75; PULSE 72; RESP 16; TEMP 36.7; O2SAT 100
== END 2025-02-02 21:49 | disposition home or self-care (01) ==
PROVIDERS: Physician Assistant Medical; Emergency Provider Emergency Medicine
DX: M79.18 Myalgia, other site (principal); R07.9 Chest pain, unspecified; R06.02 Shortness of breath
CPT/HCPCS: 36415; 71046; 80048; 80076; 83735; 84484; 84702; 85025; 85610; 87502; 87635; 93005; 96372; 99284; J1885

== ENCOUNTER → 2025-02-02 15:02 | Outpatient (BNV) | payer OTHER, SELFPAY | PROVIDERS: Visit Provider Radiology Diagnostic Radiology | DX: R07.89 Other chest pain (principal); R06.02 Shortness of breath | CPT/HCPCS: 71046 ==

== ENCOUNTER → 2025-02-02 15:02 | Outpatient (BNV) | payer OTHER, SELFPAY | PROVIDERS: Emergency Provider Emergency Medicine; Visit Provider Internal Medicine | DX: R07.9 Chest pain, unspecified (principal) | CPT/HCPCS: 93010 ==

== ENCOUNTER 2025-02-13 09:43 | Emergency (ER) | payer OTHER, SELFPAY ==
--- OUTSIDE RECORDS SUMMARY | 2024-09-23 08:45 | XMS_ITS ---
Author Organization [address] [id number] Care Team Providers Care Supervisor Wet Pour Name Role Phone BOLIVAR BROWN Unavailable [phone] REASON FOR VISIT Nexplanon Out, Nexplanon In Social History Sex Assigned At : Social History Observation Description Sex Assigned At Female Encounters Encounter Location Date Provider Diagnosis [address] [id number] BOLIVAR BROWN Plan Of Treatment No Information Progress Notes * Roland MARTÍNEZMilagroOB: [birth year] (39 yo F)Acc No.[id number]:09/23/2024 Progress Note Patient: Jessica Golden Provider: Leatha BROWN :1985 A ge:39 Y S ex:Female Date:09/23/2024 Address:[address] [place], [id number] Subjective: * Chief Complaints: * N explanon Out, Nexplanon In Billing Information: * Procedure Codes: * Electronic signature of COLIN BROWN CNM on 02/13/2025 at 10:06 AM EDT Sign off status: Pending * Provider: Leatha BROWN Date: 0 09/23/2024 Generated for Betty cannon/Emiliano/eTransmitting on: 1 10:06 AM EDT
--- OUTSIDE RECORDS SUMMARY | 2024-10-12 07:00 | XMS_ITS ---
Author Organization [facility] Address [address] [place] [id number] Care Team Providers Care Business Development Agent Name Role Phone BOLIVAR BROWN Unavailable [phone] REASON FOR VISIT labs Social History Sex Assigned At : Social History Observation Description Sex Assigned At Female Encounters Encounter Location Date Provider Diagnosis [facility] [address] [place], [place] [id number] 01/2025 BOLIVAR BROWN Plan Of Treatment No Information Progress Notes * Roland EUBANKSieDOB: [birth year] (39 yo F)Acc No.[id number]:10/12/2024 LAB Patient: Jessica Golden Provider: Leatha BROWN :1985 A ge:39 Y S ex:Female Date:10/12/2024 [facility] [address] [id number] Subjective: * Chief Complaints: * L abs * Electronic signature of COLIN BROWN CNM on 02/13/2025 at 10:06 AM EDT Sign off status: Pending * Provider: Leatha BROWN Date: 0 10/12/2024 Generated for Betty cannon/Emiliano/Shannen on: 1 10:06 AM EDT
--- NOTE | 2025-02-13 | ECG_ITS ---
Test Reason : CP Blood Pressure : */* mmHG Vent. Rate : 80 BPM Atrial Rate : 80 BPM P-R Int : 164 ms QRS Dur : 86 ms QT Int : 400 ms P-R-T Axes : 54 31 52 degrees QTcB Int : 461 ms Normal sinus rhythm Normal ECG When compared with ECG of 02-Feb-2025 15:12, No significant change was found Referred By: Generic ED Physician Electronically Signed By: LATESHA POSADAS MD
--- NOTE | ~2025-02-13 | XR_ITS ---
CLINICAL HISTORY: sob cough 1 view chest x-ray. Comparison: CR/SR - XR CHEST 2 VIEWS - 02/02/2025 03:28 PM EDT Findings: Normal lung volumes. Lungs are clear. No pneumothorax or pleural effusion. Heart size normal. No passive venous congestion. No midline shift or tracheal deviation. No acute fracture. Impression: 1. No acute cardiopulmonary disease. This document has been electronically signed by: Raphael Cox MD on 02/13/2025 10:53:43
[2025-02-13 09:52] VITALS: BP 164/84; PULSE 84; RESP 18; TEMP 36.4; O2SAT 98; BMI 38.7
--- OUTSIDE RECORDS SUMMARY | 2025-02-13 10:06 | XMS_ITS | Clinical Summary ---
Author Organization [facility] Address [address] [facility] [address] [place] [address] Phone Care Team Providers Care Personal Financial Planner Name Role Phone Hortensia Tucker PELT GRADER Unavailable [phone] Pcp, Unknown Primary Care Provider Unavailabl [...] VACCINE (#1) 2024 COVID-19 VACCINE ( - 2024-2 6 season) 2025 HEPATITIS A VACCINES Aged Out [...] Medical Devices Not on file Care Teams Personal Financial Planner Relationship Specialty Start Date End Date Pcp, Unknown PCP - General 12/04/21 Hortensia Tucker NP [email or web address] Historical LMR Provider 02/19/17 Additional Source Comments The information contained in this document represents components of the legal health record. It is not the complete legal health record.[facility]
--- OUTSIDE RECORDS SUMMARY | 2025-02-13 10:07 | XMS_ITS | Patient Health Record ---
Author Organization [facility] Address [address] [place] [id number] Care Team Providers Care Journeyman Lineman Name Role Phone BOLIVAR BROWN Unavailable [phone] Allergies No Known Allergies Reason For Referral [...] you used tobacco? Yes, jessie awan [employer] cigarettes Tobacco Smoking Status Current every day smoker Section Notes: Client would like to schedul e lab visit for STI testing Vital Signs Blood pressure diastolic 88 mm Hg 10/07/2024 Height 5'5 in 10/07/2024 Blood pressure systolic 132 mm Hg 10/07/2024 Weight 201.6 lbs 10/07/2024 BMI 33.54 kg/m2 10/07/2024 Encounters Encounter Location Date Provider Diagnosis [address] [phone] 10/07/2024 BOLIVAR BROWN Nexplanon Removal and Insertion [...] ATT CLAIMS [address] [place] [address] [phone] Jessica Martínez Self - patient is the insured Medical (General) History Medical History History ICD Code Anxiety/depression - in therapy
--- NOTE | 2025-02-13 10:09 | ED_ITS ---
HPI - General Adult General Chief complaint: Upper Respiratory Symptoms Stated complaint: sore throat chest pressure Time Seen by Provider: 02/13/25 10:09 Source: patient Mode of arrival: ambulatory Limitations: no limitations History of Present Illness ED Provider: Esmer Mujica PA-C HPI narrative: Patient is a 39 year old assigned female at with no reported medical history presenting to the emergency department today with a cough and sore throat. Patient states that she has felt generally unwell over the last few days with a cough and a sore throat. Patient denies any other complaints at this time. Related Data Previous Rx's ?Medication ?Instructions ?Recorded acetaminophen 300 mg-codeine 30 mg 1 tab PO Q8H PRN pa in, severe 3 03/18/22 tablet days #5 tabs acetaminophen 500 mg tablet 500 mg PO Q6H PRN pain #30 tabs 05/07/23 (Tylenol Extra Strength) ibuprofen 600 mg tablet 600 mg PO Q6H PRN pain #30 t abs 05/07/23 oxycodone 5 mg tablet 5 mg PO Q6H PRN severe pain (scale 05/07/23 score 7-10) #7 tabs tramadol 50 mg tablet 50 mg PO BID 7 days #14 tabs 05/13/23 ibuprofen 800 mg tablet 800 mg PO Q8H PRN pain 30 da ys #90 06/10/23 tabs azithromycin 250 mg tablet 250 mg PO DAILY 4 days #4 t abs 05/07/24 cefuroxime axetil 500 mg tablet 500 mg PO BID 8 days # 16 tabs 05/07/24 ibuprofen 400 mg tablet 400 mg PO Q6H PRN pain #14 t abs 05/07/24 ondansetron 4 mg disintegrating 4 mg PO Q6H PRN nausea and 05/07/24 tablet vomiting #10 tabs cyclobenzaprine 10 mg tablet 10 mg PO TID PRN muscle s pasm #10 02/02/25 tabs ketorolac 10 mg tablet 10 mg PO Q8H PRN pain #12 ta bs 02/02/25 Allergies Allergy/AdvReac Type Severity Reaction Status Date / Time candy corn Allergy Unknown hives Uncoded 02/13/25 09:53 Motrin Allergy Unknown hives Uncoded 02/13/25 09:53 Review of Systems Constitutional: Constitutional: Reports as per HPI Eyes: Eyes: Reports as per HPI ENT: Reports as per HPI Cardiovascular: Cardiovascular: Reports as per HPI Respiratory: Respiratory: Reports as per HPI Gastrointestinal: Gastrointestinal: Reports as per HPI Genitourinary: Genitourinary: Reports as per HPI Musculoskeletal: Musculoskeletal: Reports as per HPI Integumentary/Breasts: Skin/Breast: Reports as per HPI Neurologic: Reports as per HPI Psychiatric: Psychiatric: Reports as per HPI Endocrine: Endocrine: Reports as per HPI Hematologic/Lymphatic: Hematologic/Lymphatic: Reports as per HPI Allergic/Immunologic: Allergic/Immunologic: Reports as per HPI [facility] Past Medical History Attestation statement: The following information was validated with the patient. Source: old records reviewed and nursing notes reviewed Social History Social History Alcohol intake: current Alcohol type: hard liquor Patient Tobacco Use Status: Current everyday Tobacco user Substance Use Type: Marijuana Advance Directives: No Advance Directives Information Provided: No Do you have a plan to hurt others: No Plan Current occupational status: unemployed Current occupation: right hand dominant Physical Exam ED Vital Signs: Vital Signs - 24 hr 02/13/25 09:52 02/13/25 10:54 Temperature 97.5 F 97.5 F Pulse Rate 84 80 Respiratory Rate 18 16 Blood Pressure 164/84 H 164/84 H Pulse Oximetry 98 99 Oxygen Delivery Method Room Air Room Air BMI result Body Mass Index 38.7 Const General: cooperative, no acute distress, alert and awake Nutritional Appearance: well nourished Orientation/consciousness: patient oriented x3 HENMT Head: Yes normal to inspection and Yes atraumatic Ears: hearing grossly normal bilaterally and external ears normal General nose exam: Normal external nose present, no nasal discharge noted and no epistaxis Face and sinus: Yes normal facial exam, No abrasion and No laceration Mouth: Normal oral and palatal mucosa present, no drooling and no muffled voice Eyes General: appearance normal, both eyes and all related structures Periorbital: periorbital findings normal Eyelids: Yes eyelids normal Conjunctivae: conjunctivae normal Pupils: Equal, round and reactive pupils present EOM: EOMs intact bilaterally Neck Neck: Yes normal visual inspection and Yes full ROM Resp Effort & Inspection: normal respiratory effort and able to speak in complete sentences Neuro General: patient oriented x3, moves all extremities and CN's II-XI intact bilaterally Cranial nerves: Yes Equal, round and reactive pupils present Cognition (Neuro): normal cognition Extrem General: Yes normal to inspection, Yes full ROM and Yes capillary refill normal Psych Appearance: grossly normal Mental Status: mental status grossly normal Affect: normal affect Attitude: cooperative Thought process: Normal thought process present Thought content: Normal thought content present Insight: Good insight present (Psych) Medications Administered Discontinued Medications Generic Name Dose Route Start Last Admin Trade Name Aaronq PRN Reason Stop Dose Admin Dexamethasone Sodium Phosphate 10 mg 02/13/25 10:41 02/13/25 10:51 Dexamethasone Sod Phosphate 10 Mg/Ml Vial PO 02/13/25 10:42 10 mg ONCE ONE Administration Medical Decision Making Medical Decision Making [facility] Narrative: Patient is a 39 year old assigned female at with no reported medical history presenting to the emergency department today with a cough and sore throat. Patient's physical exam was unremarkable. Patient's EKG was unremarkable. Patient's chest x-ray showed no acute process. Patient's COVID-19, influenza, and strep pharyngitis were unremarkable. Patient's clinical presentation is most consistent with a viral illness. I explained my physical exam findings as well as all test results to the patient. I answered all questions asked by the patient. I stressed the importance of the patient taking her medication as directed (either prescribed or as the over the counter packaging recommends). I stressed the importance of the patient following up with her primary care provider. I stressed the importance of the patient returning to the emergency department immediately if her symptoms were to worsen or if she were to develop any dizziness, shortness of breath, difficulty breathing, chest pain, blurry vision, loss of vision, nausea, vomiting, abdominal pain, fever, chills, back pain, or any other complaints. Patient verbalized agreement and understanding with this treatment plan and discharge. Differential Diagnosis Differential Diagnoses: The differential diagnosis associated with the presentation includes Viral illness Cough Pharyngitis COVID-19 Influenza Strep pharyngitis Admission/Observation Consideration of admission/observation: Escalation of care including admission/o bservation considered Patient would have been admitted to the hospital had her work up had any findings where hospital admission was appropriate and her clinical presentation warranted hospital admission. Lab Data [facility] Lab Attestation statement: I reviewed the patient's lab results. My interpretation of these studies and their corresponding values is that they are grossly normal. Labs: Lab Results 02/13/25 Range/Units 10:02 COVID-19 (VAIBHAV) Negative (Negative) COVID-19 Clin Com See Note Influenza Type A (BASILIO) Negative (Negative) Influenza Type B (BASILIO) Negative (Negative) Influenza A & B Note See Note S. pyogenes GrpA BASILIO Negative (Negative) Independent Interpretation I performed an independent interpretation of an: EKG and Plain X-Ray Interpretation: My interpretation is in agreement with the radiologist's impression of this imaging study. Reason for Exam: sob/cough CLINICAL HISTORY: sob cough 1 view chest x-ray. Comparison: CR/SR - XR CHEST 2 VIEWS - 02/02/2025 03:28 PM EDT Findings: Normal lung volumes. Lungs are clear. No pneumothorax or pleural effusion. Heart size normal. No passive venous congestion. No midline shift or tracheal deviation. No acute fracture. Impression: 1. No acute cardiopulmonary disease. This document has been electronically signed by: Raphael Cox MD on 02/13/2025 10:53:43 Dictated By: Raphael Cox MD Signed By: Electronically signed by Raphael Cox MD 02/13/25 1054 I independently interpreted this EKG and am in agreement with the below findings: Vent. Rate: 80 BPM Atrial Rate: 80 BPM P-R Int: 164 ms QRS Dur: 86 ms QT Int: 400 ms P-R-T Axes: 54 31 52 degrees QTcB Int: 461 ms Normal sinus rhythm When compared with ECG of 02-Feb-2025 15:12, No significant change was found DD/ [id number] Radiology Impression Discussion of test interpretation with radiology: I have reviewed the radiologist's reading. Discharge Plan Discharge Clinical Impression: Sore throat, Viral illness Cough Qualifiers: Cough type: acute Qualified Code(s): R05.1 - Acute cough Patient Disposition: Home, Self-Care Instructions: Pharyngitis (ED), Viral Syndrome (ED) Additional Instructions: Your work up today showed no evidence of an EMERGENT process for your symptoms. I believe you have a viral infection. Please be sure to stay well hydrated. IF you are prescribed home medications and/or you are taking over the counter medications at home - it is very important you continue to do so as prescribed / directed unless told otherwise. Follow up with a primary care provider. Return to the emergency department immediately if your symptoms worsen or if you develop any numbness, tingling, dizziness, shortness of breath, difficulty breathing, chest pain, blurry vision, loss of vision, nausea, vomiting, abdominal pain, fever, chills, back pain, or any other complaints. If you do not have a primary care provider - call any of the below numbers to establish and follow up with a primary care provider. [facility] Care ([place]) [phone] [place] [address], [address] [facility] Primary Care ([address] [place]) [phone] [place] [address], [address] [facility], [address] [facility] Primary Care ([address] [place]) [phone] [place] [address], [address] [facility], [address] [facility] Primary Care ([place]) [phone] [place] [address], [address] [facility], [address] [facility] Family Medicine [phone] [address] [facility], [address] Please see the information below about our Patient Portal. If you are not yet enrolled in the [facility] Patient Portal, you will receive an enrollment email invitation following your visit to any [facility] setting. You may also self-enroll in the Patient Portal by visiting our website: [email or web address] The following information is required to access the Patient Portal: - Your [facility] Medical Record Number - Your personal home email address (must match what is in your electronic medical record, Registration staff can assist with this) - Name - Date of Capabilities of the Patient Portal: - Message some providers - View upcoming appointments - Access your health summary, medical history, and visit history - View current conditions and allergies - View procedure and lab results - View your medications, including guidelines, side effects, and precautions - Complete pre-appointment questionnaires requested by your provider - Ready summary reports of your office visits and procedures To access the Patient Portal Mobile [employer], follow these directions: - Search [employer] in the [employer] Store or [employer] Store - Download the [employer] - Search for [facility] - Enter your login/password Prescriptions: No Action acetaminophen-codeine 300-30 mg tablet 1 tab PO Q8H PRN (Reason: pain, severe) 3 Days Qty: 5 0RF oxycodone 5 mg tablet 5 mg PO Q6H PRN (Reason: severe pain (scale score 7-10)) Qty: 7 0RF Rx Instructions: Partial Fill upon patient request. acetaminophen [Tylenol Extra Strength] 500 mg tablet 500 mg PO Q6H PRN (Reason: pain) Qty: 30 0RF ibuprofen 600 mg tablet 600 mg PO Q6H PRN (Reason: pain) Qty: 30 0RF cefuroxime axetil 500 mg tablet 500 mg PO BID 8 Days Qty: 16 0RF ibuprofen 400 mg tablet 400 mg PO Q6H PRN (Reason: pain) Qty: 14 0RF ondansetron 4 mg tablet,disintegrating 4 mg PO Q6H PRN (Reason: nausea and vomiting) Qty: 10 0RF azithromycin 250 mg tablet 250 mg PO DAILY 4 Days Qty: 4 0RF Rx Instructions: start on day 2 of therapy ketorolac 10 mg tablet 10 mg PO Q8H PRN (Reason: pain) Qty: 12 0RF Rx Instructions: maximum total duration of 5 days from all oral, intranasal, or parenteral formulations cyclobenzaprine 10 mg tablet 10 mg PO TID PRN (Reason: muscle spasm) Qty: 10 0RF tramadol 50 mg tablet 50 mg PO BID 7 Days Qty: 14 0RF ibuprofen 800 mg tablet 800 mg PO Q8H PRN (Reason: pain) 30 Days Qty: 90 3RF Stand Alone Forms: Work/School Release Interventions: ED Discharge Assessment Last Done: 02/13/25 10:54 Discharge Date/Time: 02/13/25 10:55 Print Language: Haitian
[2025-02-13 10:26] LABS: IDNOW Serial# 55D5AD1C
[2025-02-13 10:27] LABS: COVID-19 Test Negative (Negative); IDNOW Serial# 08D9AD1C; IDNOW Serial# 58CA691E; Influenza B2 Negative (Negative); Strep A Nucleic Acid Negative (Negative)
[2025-02-13 10:54] VITALS: BP 164/84; PULSE 80; RESP 16; TEMP 36.4; O2SAT 99
== END 2025-02-13 10:55 | disposition home or self-care (01) ==
PROVIDERS: Emergency Provider Emergency Medicine
DX: B34.9 Viral infection, unspecified (principal); J02.9 Acute pharyngitis, unspecified; R07.89 Other chest pain; F17.210 Nicotine dependence, cigarettes, uncomplicated; R05.9 Cough, unspecified; Z11.52 Encounter for screening for COVID-19; Z79.899 Other long term (current) drug therapy
CPT/HCPCS: 71045; 87502; 87635; 87651; 93005; 99283; 99284; J1100

== ENCOUNTER → 2025-02-13 09:48 | Outpatient (BNV) | payer OTHER, SELFPAY | PROVIDERS: Emergency Provider Emergency Medicine; Visit Provider Internal Medicine Cardiovascular Disease | DX: R07.89 Other chest pain (principal) | CPT/HCPCS: 93010 ==

== ENCOUNTER → 2025-02-13 10:17 | Outpatient (BNV) | payer OTHER, SELFPAY | PROVIDERS: Emergency Provider Emergency Medicine; Visit Provider Radiology Diagnostic Radiology | DX: R06.02 Shortness of breath (principal); R05.9 Cough, unspecified | CPT/HCPCS: 71045 ==

== ENCOUNTER 2025-03-03 10:06 | Emergency (ER) | payer OTHER, SELFPAY ==
--- OUTSIDE RECORDS SUMMARY | 2024-09-23 08:45 | XMS_ITS ---
Author Organization [facility] Address [address] [place] [address] Care Team Providers Care Textile Pin Worker Name Role Phone BOLIVAR BROWN Unavailable [phone] REASON FOR VISIT Nexplanon Out, Nexplanon In Social History Sex Assigned At : Social History Observation Description Sex Assigned At Female Encounters Encounter Location Date Provider Diagnosis [facility] [address] [place], [place] [id number] BOLIVAR BROWN Plan Of Treatment No Information Progress Notes * Roland MARTÍNEZMilagroOB: [birth year] (39 yo F)Acc No.[id number]:09/23/2024 Progress Note Patient: Jessica Golden Provider: Leatha BROWN :1985 A ge:39 Y S ex:Female Date:09/23/2024 Address[address] [place], [id number] Subjective: * Chief Complaints: * N explanon Out, Nexplanon In Billing Information: * Procedure Codes: * Electronic signature of COLIN BROWN CNM on 03/03/2025 at 01:21 PM EDT Sign off status: Pending * Provider: Leatha BROWN Date: 0 09/23/2024 Generated for Betty cannon/Emiliano/eTransmitting on: 1 01:21 PM EDT
--- OUTSIDE RECORDS SUMMARY | 2024-10-12 07:00 | XMS_ITS ---
Author Organization [facility] Address [address] [place] [address] Care Team Providers Care Certified Court Interpreter Name Role Phone BOLIVAR BROWN Unavailable [phone] REASON FOR VISIT labs Social History Sex Assigned At : Social History Observation Description Sex Assigned At Female Encounters Encounter Location Date Provider Diagnosis [facility] [address] [place], [place] [id number] 01/2025 BOLIVAR BROWN Plan Of Treatment No Information Progress Notes * TANYALeonardoStewartOB: [birth year] (39 yo F)Acc No.[id number]:10/12/2024 LAB Patient: Jessica Golden Provider: Leatha BROWN :1985 A ge:39 Y S ex:Female Date:10/12/2024 [id number] Subjective: * Chief Complaints: * L abs * Electronic signature of COLIN BROWN CNM on 03/03/2025 at 01:21 PM EDT Sign off status: Pending * Provider: Leatha BROWN Date: 0 10/12/2024 Generated for Betty cannon/Emiliano/Rosieitting on: 1 01:21 PM EDT
--- NOTE | ~2025-03-03 | XR_ITS ---
EXAMINATION: XR CHEST CLINICAL INFORMATION: cough COMPARISON: Chest radiograph on February 13, 2025 TECHNIQUE: 2 views of the chest were obtained. FINDINGS: Lungs: No focal consolidation or pulmonary edema. Pleura: No pleural effusion or pneumothorax. Heart/Mediastinum: Cardiomediastinal silhouette is within normal limits. Bones: No acute findings. XR/XR chest 2V IMPRESSION: No acute cardiopulmonary abnormality. Electronically signed by: Mary Sanchez MD 03/03/2025 10:51 AM EDT
[2025-03-03 10:18] VITALS: BP 160/98; PULSE 71; RESP 20; TEMP 36.6; O2SAT 98; BMI 38.5
--- NOTE | 2025-03-03 10:18 | ED.GENADULT ---
HPI - General Adult General Chief complaint: Upper Respiratory Symptoms Stated complaint: Cough Congestion Running Nose Time Seen by Provider: 03/03/25 10:33 Source: patient Mode of arrival: ambulatory Limitations: no limitations History of Present Illness HPI narrative: This is a 39 years old female presented to the emergency department with a chief complaint of shortness of breath cough congestion sore throat symptoms have been ongoing for about a month denies any fever chills Onset (ago): month(s) (1) Radiation: non-radiation Severity: moderate Pain Consistency: constant Relieving factors: none Exacerbating factors: none Associated symptoms: denies other symptoms Related Data Previous Rx's ?Medication ?Instructions ?Recorded acetaminophen 300 mg-codeine 30 mg 1 tab PO Q8H PRN pain, severe 3 03/18/22 tablet days #5 tabs acetaminophen 500 mg tablet 500 mg PO Q6H PRN pain #30 tabs 05/07/23 (Tylenol Extra Strength) ibuprofen 600 mg tablet 600 mg PO Q6H PRN pain #30 tabs 05/07/23 oxycodone 5 mg tablet 5 mg PO Q6H PRN severe pain (scale 05/07/23 score 7-10) #7 tabs tramadol 50 mg tablet 50 mg PO BID 7 days #14 tabs 05/13/23 ibuprofen 800 mg tablet 800 mg PO Q8H PRN pain 30 days #90 06/10/23 tabs azithromycin 250 mg tablet 250 mg PO DAILY 4 days #4 tabs 05/07/24 cefuroxime axetil 500 mg tablet 500 mg PO BID 8 days #16 tabs 05/07/24 ibuprofen 400 mg tablet 400 mg PO Q6H PRN pain #14 tabs 05/07/24 ondansetron 4 mg disintegrating 4 mg PO Q6H PRN nausea and 05/07/24 tablet vomiting #10 tabs cyclobenzaprine 10 mg tablet 10 mg PO TID PRN muscle spasm #10 02/02/25 tabs ketorolac 10 mg tablet 10 mg PO Q8H PRN pain #12 tabs 02/02/25 doxycycline monohydrate 100 mg 100 mg PO BID #14 caps 03/03/25 capsule prednisone 20 mg tablet 40 mg (2 x 20 mg) PO DAILY #8 tabs 03/03/25 Allergies Allergy/AdvReac Type Severity Reaction Status Date / Time candy corn Allergy Unknown hives Uncoded 03/03/25 10:21 Motrin Allergy Unknown hives Uncoded 03/03/25 10:21 Review of Systems Constitutional: Constitutional: Reports no additional constitutional complaints ENT: Reports system reviewed and no additional complaints, except as documented Cardiovascular: Cardiovascular: Reports no additional cardiovascular complaints [facility] Past Medical History Attestation statement: The following information was validated with the patient. [facility] Narrative: smoker Social History Social History Alcohol intake: current Alcohol type: hard liquor Patient Tobacco Use Status: Current everyday Tobacco user Substance Use Type: Marijuana Advance Directives: No Advance Directives Information Provided: Yes Current occupational status: unemployed Current occupation: right hand dominant Physical Exam ED Exam Exam: No acute distress Vital Signs: Vital Signs - 24 hr 03/03/25 10:18 03/03/25 15:40 Temperature 97.8 F 97.8 F Pulse Rate 71 71 Respiratory Rate 20 20 Blood Pressure 160/98 H 160/98 H Pulse Oximetry 98 98 Oxygen Delivery Method Room Air BMI result Body Mass Index 38.5 Const General: cooperative Nutritional Appearance: average body habitus Orientation/consciousness: patient oriented x3 HENMT Head: Yes normal to inspection General nose exam: Normal external nose present Face and sinus: Yes normal facial exam Mouth: Normal oral and palatal mucosa present Throat: Yes posterior oropharynx normal Neck Neck: Yes normal visual inspection Chest Chest palpation & inspection: normal inspection of the chest Resp Effort & Inspection: normal respiratory effort Auscultation: rhonchi Cardio Jugular venous distension: no JVD Rate: regular rate Rhythm: regular rhythm Peripheral pulses: Peripheral pulses 2+ throughout GI Inspection: Yes normal to inspection Palpation (GI): Soft to palpation Percussion: Yes normal to percussion Neuro General: patient oriented x3 Course Course Course Narrative: 39 yo F here for one month of body aches, exertional shortness of breath. Not improving. Here for re-evaluation. Daughter is also sick for a month now. Sore throat. URI symptoms. She is a smoker. No history of asthma or COPD. Patient stable at time of evaluation. Informed patient due to bed shortage, we will get her back as soon as possible if her conditions changed to let us know. Lyndsey Page DO 03/03/25 1019 Reevaluation(s) Reevaluation #1: CXR neg , viral panel normal, she has a negative D-dimer so I do not think she has a pulmonary emboli, chemistry normal, Mild anemia 10. I think she can be discharged, O2 sat is 98%, she is not tachycardic with a heart rate of 71 I will send her home with p.o. doxycycline advise her not to smoke, I will give also short course of steroid Time: 15:36 Medications Administered Discontinued Medications Generic Name Dose Route Start Last Admin Trade Name Sissy PRN Reason Stop Dose Admin Lorazepam 1 mg 03/03/25 15:29 03/03/25 15:39 Lorazepam 1 Mg Tablet PO 03/03/25 15:30 1 mg ONCE ONE Administration Medical Decision Making Medical Decision Making [facility] Narrative: Patient is here complaining of shortness of breath we will obtain a chest x-ray labs Differential Diagnosis Differential Diagnoses: The differential diagnosis associated with the presentation includes Admission/Observation Consideration of admission/observation: Escalation of care including admission/observation considered Lab Data [facility] Lab Attestation statement: I reviewed the patient's lab results. 03/03/25 10:38 03/03/25 10:38 Labs: Lab Results 03/03/25 03/03/25 03/03/25 Range/Units 10:34 10:35 10:38 WBC 3.8 L (4.8-10.8) X10*3/uL RBC 3.83 L (4.20-5.50) X10*6/uL Hgb 10.8 L (12.0-16.0) g/dl Hct 34.3 L (37.0-47.0) % MCV 89.6 (80.0-98.0) fL MCH 28.2 (27.0-33.0) pg MCHC 31.5 (31.0-35.0) g/dl RDW 15.3 (11.0-16.0) % Plt Count 284 (160-400) X10*3/uL MPV 8.7 L (9.4-12.3) fL Immature Gran % (Auto) 0.3 (0.0-0.4) % Neut % (Auto) 55.9 (45-73) % Lymph % (Auto) 31.3 (20-40) % Assumption % (Auto) 10.2 (2-11) % Eos % (Auto) 1.8 (0-4) % Baso % (Auto) 0.5 (0-2) % Lymph # (Auto) 1.2 (1.2-4.9) X10*3/uL Assumption # (Auto) 0.4 (0.1-1.2) X10*3/uL Eos # (Auto) 0.1 (0.0-0.4) X10*3/uL Baso # (Auto) 0.0 (0.0-0.2) X10*3/uL Abs Immat Gran (auto) 0.01 (0.00-0.03) X10*3/uL Absolute Neuts (auto) 2.1 (2.0-8.3) x10*3/uL Absolute Nucleated RBC 0.000 (0.0-0.012) X10*3/uL Nucleated RBC % (auto) 0.0 (0.0-0.2) /100WBC D-Dimer High Sensitivty NG/ML Sodium 140 (135-145) mmol/L Potassium 4.0 (3.3-5.1) mmol/L Chloride 107 (96-108) mmol/L Carbon Dioxide 28 (22-29) mmol/L Anion Gap 9 L (12-20) BUN 11 (9-16) mg/dL Creatinine 0.54 (0.5-1.4) mg/dL Estim Creat Clear Calc 169.8 Estimated GFR > 60 Random Glucose 96 (60-115) mg/dL Calcium 9.0 (8.4-10.2) mg/dL COVID-19 (VAIBHAV) Negative (Negative) COVID-19 Clin Com See Note Influenza Type A (BASILIO) Negative (Negative) Influenza Type B (BASILIO) Negative (Negative) Influenza A & B Note See Note S. pyogenes GrpA BASILIO Negative (Negative) 03/03/25 Range/Units 12:17 WBC (4.8-10.8) X10*3/uL RBC (4.20-5.50) X10*6/uL Hgb (12.0-16.0) g/dl Hct (37.0-47.0) % MCV (80.0-98.0) fL MCH (27.0-33.0) pg MCHC (31.0-35.0) g/dl RDW (11.0-16.0) % Plt Count (160-400) X10*3/uL MPV (9.4-12.3) fL Immature Gran % (Auto) (0.0-0.4) % Neut % (Auto) (45-73) % Lymph % (Auto) (20-40) % Assumption % (Auto) (2-11) % Eos % (Auto) (0-4) % Baso % (Auto) (0-2) % Lymph # (Auto) (1.2-4.9) X10*3/uL Assumption # (Auto) (0.1-1.2) X10*3/uL Eos # (Auto) (0.0-0.4) X10*3/uL Baso # (Auto) (0.0-0.2) X10*3/uL Abs Immat Gran (auto) (0.00-0.03) X10*3/uL Absolute Neuts (auto) (2.0-8.3) x10*3/uL Absolute Nucleated RBC (0.0-0.012) X10*3/uL Nucleated RBC % (auto) (0.0-0.2) /100WBC D-Dimer High Sensitivty < 150 NG/ML Sodium (135-145) mmol/L Potassium (3.3-5.1) mmol/L Chloride (96-108) mmol/L Carbon Dioxide (22-29) mmol/L Anion Gap (12-20) BUN (9-16) mg/dL Creatinine (0.5-1.4) mg/dL Estim Creat Clear Calc Estimated GFR Random Glucose (60-115) mg/dL Calcium (8.4-10.2) mg/dL COVID-19 (VAIBHAV) (Negative) COVID-19 Clin Com Influenza Type A (BASILIO) (Negative) Influenza Type B (BASILIO) (Negative) Influenza A & B Note S. pyogenes GrpA BASILIO (Negative) Independent Interpretation I performed an independent interpretation of an: Plain X-Ray Interpretation: Not acute disease Radiology Impression Discussion of test interpretation with radiology: I have reviewed the radiologist's reading. Radiologist Impression: TECHNIQUE: 2 views of the chest were obtained. FINDINGS: Lungs: No focal consolidation or pulmonary edema. Pleura: No pleural effusion or pneumothorax. Heart/Mediastinum: Cardiomediastinal silhouette is within normal limits. Bones: No acute findings. XR/XR chest 2V IMPRESSION: No acute cardiopulmonary abnormality. Electronically signed by: Mary Sanchez MD 03/03/2025 10:51 AM EDT RP Dictated By: Mary Sanchez MD Signed By: <Electronically sig Prescription Management I considered prescription management with: Antibiotic Discharge Plan Discharge Clinical Impression: Bronchitis Patient Disposition: Home, Self-Care Instructions: Acute Bronchitis (ED) Additional Instructions: You should follow-up with primary care physician return to emergency room if you worse we collar an antibiotic to your pharmacy [facility] Prescriptions: New doxycycline monohydrate 100 mg capsule 100 mg PO BID Qty: 14 0RF prednisone 20 mg tablet 40 mg PO DAILY Qty: 8 0RF No Action acetaminophen-codeine 300-30 mg tablet 1 tab PO Q8H PRN (Reason: pain, severe) 3 Days Qty: 5 0RF oxycodone 5 mg tablet 5 mg PO Q6H PRN (Reason: severe pain (scale score 7-10)) Qty: 7 0RF Rx Instructions: Partial Fill upon patient request. acetaminophen [Tylenol Extra Strength] 500 mg tablet 500 mg PO Q6H PRN (Reason: pain) Qty: 30 0RF ibuprofen 600 mg tablet 600 mg PO Q6H PRN (Reason: pain) Qty: 30 0RF cefuroxime axetil 500 mg tablet 500 mg PO BID 8 Days Qty: 16 0RF ibuprofen 400 mg tablet 400 mg PO Q6H PRN (Reason: pain) Qty: 14 0RF ondansetron 4 mg tablet,disintegrating 4 mg PO Q6H PRN (Reason: nausea and vomiting) Qty: 10 0RF azithromycin 250 mg tablet 250 mg PO DAILY 4 Days Qty: 4 0RF Rx Instructions: start on day 2 of therapy ketorolac 10 mg tablet 10 mg PO Q8H PRN (Reason: pain) Qty: 12 0RF Rx Instructions: maximum total duration of 5 days from all oral, intranasal, or parenteral formulations cyclobenzaprine 10 mg tablet 10 mg PO TID PRN (Reason: muscle spasm) Qty: 10 0RF tramadol 50 mg tablet 50 mg PO BID 7 Days Qty: 14 0RF ibuprofen 800 mg tablet 800 mg PO Q8H PRN (Reason: pain) 30 Days Qty: 90 3RF Interventions: ED Discharge Assessment Last Done: 03/03/25 15:40 Discharge Date/Time: 03/03/25 15:44 Print Language: Mauritian
[2025-03-03 10:43] LABS: MANUAL DIFF FLAG NO
[2025-03-03 10:48] LABS: Hematocrit 34.3 % (37.0-47.0); Hemoglobin 10.8 g/dl (12.0-16.0); Imm Gran Abs Auto 0.01 X10*3/uL (0.00-0.03); Imm Gran Pct Auto 0.3 % (0.0-0.4); Lymphocytes Absolute Auto 1.2 X10*3/uL (1.2-4.9); Mean Corpuscular HGB Conc 31.5 g/dl (31.0-35.0); Mean Corpuscular Hemoglobin 28.2 pg (27.0-33.0); Mean Corpuscular Volume 89.6 fL (80.0-98.0); NRBC Abs Auto 0.000 X10*3/uL (0.0-0.012); NRBC Pct Auto 0.0 /100WBC (0.0-0.2); Platelet Count 284 X10*3/uL (160-400); Red Blood Count 3.83 X10*6/uL (4.20-5.50); White Blood Count 3.8 X10*3/uL (4.8-10.8)
[2025-03-03 11:01] LABS: Anion Gap 9 (12-20); Blood Urea Nitrogen 11 mg/dL (9-16); Calcium 9.0 mg/dL (8.4-10.2); Carbon Dioxide 28 mmol/L (22-29); Chloride 107 mmol/L (96-108); Creatinine Clr Calc Pharmacy 169.8; Estimated Glomerular Filt Rate > 60; Potassium 4.0 mmol/L (3.3-5.1); Sodium 140 mmol/L (135-145)
[2025-03-03 11:02] LABS: IDNOW Serial# 08D9AD1C; Strep A Nucleic Acid Negative (Negative)
[2025-03-03 11:08] LABS: COVID-19 Test Negative (Negative); IDNOW Serial# 58CA691E
[2025-03-03 11:10] LABS: IDNOW Serial# 55D5AD1C
[2025-03-03 11:11] LABS: Influenza B2 Negative (Negative)
[2025-03-03 12:38] LABS: D Dimer High Sensitivity < 150 NG/ML
--- OUTSIDE RECORDS SUMMARY | 2025-03-03 13:21 | XMS_ITS | Patient Health Record ---
Author Organization [facility] Address [address] [place] [address] Care Team Providers Care Operator Electronic Warfare Name Role Phone BOLIVAR BROWN Unavailable [phone] Allergies No Known Allergies Reason For Referral [...] you used tobacco? Yes, jessie awan [employer] cigarettes Tobacco Smoking Status Current every day smoker Section Notes: Client would like to schedul e lab visit for STI testing Vital Signs Blood pressure diastolic 88 mm Hg 10/07/2024 Height 5'5 in 10/07/2024 Blood pressure systolic 132 mm Hg 10/07/2024 Weight 201.6 lbs 10/07/2024 BMI 33.54 kg/m2 10/07/2024 Encounters Encounter Location Date Provider Diagnosis [address] [phone] 10/07/2024 BOLIVAR BROWN Nexplanon Removal and Insertion [...] ATT CLAIMS [address] [place] [address] [id number] Jessica Martínez Self - patient is the insured Medical (General) History Medical History History ICD Code Anxiety/depression - in therapy
--- OUTSIDE RECORDS SUMMARY | 2025-03-03 13:21 | XMS_ITS | Clinical Summary ---
Author Organization [facility] Address [address] [place] [address] Phone Care Team Providers Care Test Desk Supervisor Name Role Phone Hortensia Tucker ORGAN GRINDER Unavailable [phone] Pcp, Unknown Primary Care Provider Unavailabl [...] Medical Devices Not on file Care Teams Test Desk Supervisor Relationship Specialty Start Date End Date Pcp, Unknown PCP - General 12/04/21 Hortensia Tucker NP [email or web address] Historical [facility] Provider 02/19/17 Additional Source Comments The information contained in this document represents components of the legal health record. It is not the complete legal health record.[facility]
[2025-03-03 15:40] VITALS: BP 160/98; PULSE 71; RESP 20; TEMP 36.6; O2SAT 98
== END 2025-03-03 15:44 | disposition home or self-care (01) ==
PROVIDERS: Student in an Organized Health Care Education/Training Program; Emergency Provider Emergency Medicine
DX: J40 Bronchitis, not specified as acute or chronic (principal); R05.9 Cough, unspecified; R06.02 Shortness of breath; R09.89 Other specified symptoms and signs involving the circulatory and respiratory systems; J02.9 Acute pharyngitis, unspecified; Z03.818 Encounter for observation for suspected exposure to other biological agents ruled out
CPT/HCPCS: 36415; 71046; 80048; 85025; 85379; 87502; 87635; 87651; 99282; 99283

== ENCOUNTER → 2025-03-03 10:23 | Outpatient (BNV) | payer OTHER, SELFPAY | PROVIDERS: Emergency Provider Emergency Medicine; Visit Provider Radiology Body Imaging | DX: R05.9 Cough, unspecified (principal) | CPT/HCPCS: 71046 ==

== ENCOUNTER 2025-04-20 09:47 | Emergency (ER) | payer OTHER, SELFPAY ==
--- OUTSIDE RECORDS SUMMARY | 2024-09-23 07:45 | XMS_ITS ---
Author Organization [facility] Address [address] [place] [address] Care Team Providers Care Computer Education Professor Name Role Phone BOLIVAR BROWN Unavailable [phone] REASON FOR VISIT Nexplanon Out, Nexplanon In Social History Sex Assigned At : Social History Observation Description Sex Assigned At Female Encounters Encounter Location Date Provider Diagnosis [facility] [address] [place], [place] [id number] BOLIVAR BROWN Plan Of Treatment No Information Progress Notes * Roland MARTÍNEZMilagroOB: [birth year] (39 yo F)Acc No.[id number]:09/23/2024 Progress Note Patient: Jessica Golden Provider: Leatha BROWN :1985 A ge:39 Y S ex:Female Date:09/23/2024 Address:[address] [place], [id number] Subjective: * Chief Complaints: * N explanon Out, Nexplanon In Billing Information: * Procedure Codes: * Electronic signature of COLIN BROWN CNM on 04/20/2025 at 01:34 PM EST Sign off status: Pending * Provider: Leatha BROWN Date: 0 09/23/2024 Generated for Betty ng/Emiliano/eTransmitting on: 1 06/21/2024 01:34 PM EST
--- OUTSIDE RECORDS SUMMARY | 2024-10-12 06:00 | XMS_ITS ---
Author Organization [facility] Address [address] [place] [address] Care Team Providers Care Electric Stop Installer Name Role Phone BOLIVAR BROWN Unavailable [phone] REASON FOR VISIT labs Social History Sex Assigned At : Social History Observation Description Sex Assigned At Female Encounters Encounter Location Date Provider Diagnosis [facility] [address] [place], [place] [phone] 01/2025 BOLIVAR BROWN Plan Of Treatment No Information Progress Notes * TANYARoland GUZMÁNMilagroOB: [birth year] (39 yo F)Acc No.[id number]:10/12/2024 LAB Patient: Jessica Golden Provider: Leatha BROWN :1985 A ge:39 Y S ex:Female Date:10/12/2024 [facility] Subjective: * Chief Complaints: * L abs * Electronic signature of COLIN BRWON CNM on 04/20/2025 at 01:34 PM EST Sign off status: Pending * Provider: Leatha BROWN Date: 0 10/12/2024 Generated for Betty cannon/Emiliano/Shannen on: 1 06/21/2024 01:34 PM EST
[2025-04-20] VITALS (13 sets, daily range): BP systolic 60–124; BP diastolic 44–78; PULSE 87–104; RESP 12–24; TEMP 36.1–36.6; O2SAT 95–100; BMI 38.0
--- NOTE | ~2025-04-20 | US_ITS ---
EXAMINATION: US ABDOMEN LIMITED CLINICAL INFORMATION: Elevated AST, ALT, alkaline phosphatase, with right upper quadrant tenderness.. COMPARISON: None. Correlation made with CT abdomen and pelvis performed earlier same day. TECHNIQUE: Real-time grayscale, color Doppler, and spectral Doppler imaging of the right upper quadrant abdominal viscera. FINDINGS: VASCULAR: There is normal hepatopedal flow with normal venous waveforms in the extrahepatic portal vein, the main portal vein, and both the right and left portal veins. The hepatic veins are patent, all with normal hepatofugal flow and appropriate waveforms. There is no evidence of hepatic venous thrombosis. The main hepatic artery is patent with normal waveforms and velocity of 61 cm/s. The right hepatic and left hepatic arteries are patent with normal antegrade flow and waveforms. The IVC has a normal waveform and is patent. The splenic vein is patent. No venous collaterals over varices were identified. LIVER: Diffusely increased in echogenicity consistent with fatty infiltration. Normal contour. No intrahepatic biliary dilatation. No suspicious lesion evident. GALLBLADDER: The gallbladder was somewhat contracted in appearance. No calculi, wall thickening, or pericholecystic fluid. There was a negative sonographic Brady's sign. FREE FLUID: None. US/US duplex arterial venous comp IMPRESSION: 1. Normal color and spectral Doppler examination of the right upper quadrant. 2. Diffusely increased hepatic echogenicity in keeping with fatty infiltration. 3. Gallbladder was contracted. No calculi or wall thickening evident within these confines. Negative sonographic Brady's sign. Electronically signed by: Garret Nichols MD 04/20/2025 03:34 PM [facility]
--- NOTE | ~2025-04-20 | XR_ITS ---
EXAMINATION: XR CHEST CLINICAL INFORMATION: Cough, nausea, vomiting, R/O pneumonia COMPARISON: March 03, 2025 TECHNIQUE: AP upright portable view of the chest was obtained. FINDINGS: No consolidation, pleural effusion or pneumothorax. Poor inspiration. Cardiomediastinal silhouette size is normal. Gas prominent stomach. XR/XR chest 1V IMPRESSION: No gross acute airspace disease. Gas filled prominent stomach Electronically signed by: Lito Verma MD 04/20/2025 10:59 AM EST
--- NOTE | ~2025-04-20 | US_ITS ---
EXAMINATION: US ABDOMEN LIMITED CLINICAL INFORMATION: Elevated AST, ALT, alkaline phosphatase, with right upper quadrant tenderness.. COMPARISON: None. Correlation made with CT abdomen and pelvis performed earlier same day. TECHNIQUE: Real-time grayscale, color Doppler, and spectral Doppler imaging of the right upper quadrant abdominal viscera. FINDINGS: VASCULAR: There is normal hepatopedal flow with normal venous waveforms in the extrahepatic portal vein, the main portal vein, and both the right and left portal veins. The hepatic veins are patent, all with normal hepatofugal flow and appropriate waveforms. There is no evidence of hepatic venous thrombosis. The main hepatic artery is patent with normal waveforms and velocity of 61 cm/s. The right hepatic and left hepatic arteries are patent with normal antegrade flow and waveforms. The IVC has a normal waveform and is patent. The splenic vein is patent. No venous collaterals over varices were identified. LIVER: Diffusely increased in echogenicity consistent with fatty infiltration. Normal contour. No intrahepatic biliary dilatation. No suspicious lesion evident. GALLBLADDER: The gallbladder was somewhat contracted in appearance. No calculi, wall thickening, or pericholecystic fluid. There was a negative sonographic Brady's sign. FREE FLUID: None. US/US abdomen limited IMPRESSION: 1. Normal color and spectral Doppler examination of the right upper quadrant. 2. Diffusely increased hepatic echogenicity in keeping with fatty infiltration. 3. Gallbladder was contracted. No calculi or wall thickening evident within these confines. Negative sonographic Brady's sign. Electronically signed by: Garret Nichols MD 04/20/2025 03:34 PM [facility]
--- NOTE | ~2025-04-20 | CT_ITS ---
EXAMINATION: CT ABDOMEN AND PELVIS WITHOUT CONTRAST CLINICAL INFORMATION: Right upper quadrant tenderness. Epigastric tenderness. COMPARISON: 02/21/2017. TECHNIQUE: Multidetector volumetric imaging was performed from the superior aspect of the liver through the pubic symphysis. Sagittal and coronal reformatted images were obtained on the technologist's workstation. This CT examination was performed using dose optimization techniques as appropriate, variously including the following: *Automated exposure control *Adjustment of mA and/or kV according to patient size (this includes techniques or standardized protocols for targeted exams where dose is matched to indication/reason for exam; i.e. extremities or head) *Use of iterative reconstruction technique FINDINGS: LUNG BASES: Imaged lung bases are clear. There are no effusions. The heart size is normal. The distal esophagus is dilated and fluid-filled. LIVER, GALLBLADDER, AND BILIARY TREE: Liver is enlarged with extensive diffuse fatty infiltration present. There is no suspicious focal hepatic lesion. No intrahepatic biliary dilatation. The gallbladder is contracted but present. No inflammation is evident. The common bile duct is not dilated. PANCREAS: Unremarkable. SPLEEN: Unremarkable. ADRENAL GLANDS: Unremarkable. KIDNEYS AND URETERS: There is scarring of the left kidney, particularly in the posterior midpole and upper pole. The kidneys are otherwise normal in size, shape, and attenuation. No hydronephrosis, or hydroureter. There is a 2 mm nonobstructing calculus in the upper pole of the right kidney. No perinephric stranding. BLADDER: Essentially collapsed. Grossly normal. GASTROINTESTINAL TRACT: The stomach is distended with fluid, with reflux of fluid into the distal esophagus which is also distended. The most distal gastric antrum and is not well imaged due to lack of IV contrast although the presence of an obstructing abnormality at the region of the distal antrum/pylorus is not excluded. The duodenum is decompressed. There are some mildly thickened loops of proximal small bowel present. The distal small bowel loops appear normal. A normal appendix is visualized. The colon is largely decompressed without discrete abnormality. Mild wall thickening of the transverse colon cannot be excluded, versus underdistention. There is no rectal abnormality. ABDOMINAL WALL: No significant hernia is appreciated. LYMPH NODES: No abnormal lymphadenopathy is present. VASCULAR: Normal. PELVIC VISCERA: The uterus and adnexa are unremarkable. OSSEOUS STRUCTURES: There is no suspicious lytic or blastic bone lesion. 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 CT/CT abdomen pelvis wo IV con IMPRESSION: 1. Diffuse dilatation of the stomach with fluid, with reflux of fluid into the distal esophagus. A gastric outlet obstruction is a consideration. In addition there is mild thickening of some proximal loops of small bowel, and a gastroenteritis causing this overall appearance is also a consideration. An obstructing mass at the level of the gastric antrum is considered less likely although cannot definitively be excluded given the appearance (evaluation of the limited without IV contrast). Follow-up recommended, possibly with endoscopy. 2. Hepatomegaly with diffuse fatty infiltration of the liver. 3. Ancillary findings as discussed in the body of the report. Electronically signed by: Garret Nichols MD 04/20/2025 12:36 PM [facility]
[2025-04-20 09:56] LABS: Glucose, Whole Blood 33 mg/dL (60-115)
--- NOTE | 2025-04-20 10:10 | ED.GENADULT ---
HPI - General Adult General Chief complaint: Dyspnea Stated complaint: flu like sx n/v/d, 51 POC, 90%ra, 94% 2L nc Time Seen by Provider: 04/20/25 10:09 Source: patient, EMS and other (ED in a) Mode of arrival: ambulatory History of Present Illness ED Provider: Dr. Luis Angel Benitez HPI narrative: 39-year-old female with no significant past medical history who presents emergency department for evaluation of flu-like illness x2 weeks. The patient states that she has had fever, sweats, cough which has been dry and nonproductive, nausea and vomiting. She states that over the last 24 hours she has not been able to eat or drink secondary to her nausea and vomiting. She states she is feeling very weak, lightheaded and dizzy. Patient also complained of the abdominal pain and points to her epigastric and right upper quadrant area when asked to localize the pain. On presentation the patient was hypotensive with a blood pressure of 60/45, heart rate was elevated 106 and respiratory rate was elevated 24. Temperature was 97 degrees F and O2 saturation was 97% on room air. Patient reports that at home she had fevers as high as 103.5 degrees F there is afebrile here. Related Data Previous Rx's ?Medication ?Instructions ?Recorded acetaminophen 300 mg-codeine 30 mg 1 tab PO Q8H PRN pain, severe 3 03/18/22 tablet days #5 tabs acetaminophen 500 mg tablet 500 mg PO Q6H PRN pain #30 tabs 05/07/23 (Tylenol Extra Strength) ibuprofen 600 mg tablet 600 mg PO Q6H PRN pain #30 tabs 05/07/23 oxycodone 5 mg tablet 5 mg PO Q6H PRN severe pain (scale 05/07/23 score 7-10) #7 tabs tramadol 50 mg tablet 50 mg PO BID 7 days #14 tabs 05/13/23 ibuprofen 800 mg tablet 800 mg PO Q8H PRN pain 30 days #90 06/10/23 tabs azithromycin 250 mg tablet 250 mg PO DAILY 4 days #4 tabs 05/07/24 cefuroxime axetil 500 mg tablet 500 mg PO BID 8 days #16 tabs 05/07/24 ibuprofen 400 mg tablet 400 mg PO Q6H PRN pain #14 tabs 05/07/24 ondansetron 4 mg disintegrating 4 mg PO Q6H PRN nausea and 05/07/24 tablet vomiting #10 tabs cyclobenzaprine 10 mg tablet 10 mg PO TID PRN muscle spasm #10 02/02/25 tabs ketorolac 10 mg tablet 10 mg PO Q8H PRN pain #12 tabs 02/02/25 doxycycline monohydrate 100 mg 100 mg PO BID #14 caps 03/03/25 capsule prednisone 20 mg tablet 40 mg (2 x 20 mg) PO DAILY #8 tabs 03/03/25 Allergies Allergy/AdvReac Type Severity Reaction Status Date / Time candy corn Allergy Unknown hives Uncoded 04/20/25 10:08 Motrin Allergy Unknown hives Uncoded 04/20/25 10:08 Review of Systems Review of Systems: Yes all other systems are reviewed and are negative [facility] Past Medical History [facility] Narrative: Social history: Patient denies alcohol use. She does smoke marijuana and denies injection drug use. Social History Social History Alcohol intake: never Patient Tobacco Use Status: Current everyday Tobacco user Substance Use Type: Marijuana Current occupational status: unemployed Current occupation: right hand dominant Physical Exam ED Vital Signs: Vital Signs - 24 hr 04/20/25 10:05 04/20/25 10:42 04/20/25 11:37 Temperature 97 F Pulse Rate 104 H 88 95 Respiratory Rate 24 H 22 H 18 Blood Pressure 60/45 L 79/44 L 124/50 L Pulse Oximetry 97 98 99 Oxygen Delivery Method Room Air Room Air Room Air 04/20/25 12:00 04/20/25 14:00 04/20/25 15:20 Temperature 98 F 97.7 F Pulse Rate 89 91 Respiratory Rate 15 18 Blood Pressure 116/78 99/55 L 102/68 Pulse Oximetry 100 95 Oxygen Delivery Method Room Air Room Air 04/20/25 17:53 04/20/25 19:03 04/20/25 19:31 Temperature 97.7 F Pulse Rate 90 Respiratory Rate 22 H 16 Blood Pressure 118/72 93/48 L 102/60 Pulse Oximetry 99 Oxygen Delivery Method Room Air 04/20/25 19:46 04/20/25 20:57 04/20/25 21:38 Temperature Pulse Rate 90 87 87 Respiratory Rate 12 Blood Pressure 106/69 104/53 L 95/50 L Pulse Oximetry 99 98 Oxygen Delivery Method Room Air Room Air 04/20/25 23:47 04/21/25 01:12 Temperature 97.5 F 97.5 F Pulse Rate 95 95 Respiratory Rate 18 18 Blood Pressure 116/55 L 116/55 L Pulse Oximetry 97 97 Oxygen Delivery Method Room Air Room Air BMI result Body Mass Index 38.0 Exam: General: Awake, appears to be in distress secondary to her abdominal pain, the patient is very anxious Head: Normocephalic, atraumatic EENT: PERRL, sclera and conjunctiva are normal, mouth with no erythema or exudates Neck: Supple, no adenopathy Lung: breath sounds symmetric, no wheezing, no rales and no rhonchi Chest: symmetric movement, nontender Heart: regular rate and rhythm, normal S1, S2 no murmurs or rubs Abdomen: soft, mild epigastric tenderness, mild to moderate right upper quadrant tenderness, negative Brady sign, normal bowel sounds Back: no vertebral tenderness, no CVAT Extremities: no deformities, moves all extremities symmetrically, no edema Neuro: Awake, alert, oriented, normal speech, cranial nerves 2-12 intact, moves all extremities symmetrically Psych: Pleasant, anxious Course Reevaluation(s) Reevaluation #1: 12:29 AM 04/21/2025 (Dyana Novak MD): The patient was signed out to me at change of shift by the previous emergency room physician. The patient was signed out to me pending transfer to the [facility] because of apparent acute liver failure. It seems as though the patient has been sick flu-like symptoms and took a lot of acetaminophen. The working diagnosis is that the patient has liver injury from an accidental overuse of acetaminophen in the setting of influenza. Repeat labs were sent over several hours and I was in touch with the poison Center. Overall the patient's labs were slowly improving although marginally. The patient was given magnesium replacement and also calcium replacement. Also IV fluids with some potassium were started. The patient's repeat EKG showed a less prolonged QT interval. The patient is lactic acid gradually improved over many hours from an initial lactate of 17 ultimately to a lactate of 5.6. The patient also seems to be in acute renal failure. The patient has creatinine did not improve very much. However the patient has anion gap improved, the patient is serum carbon dioxide improved and the patient remained hemodynamically stable with a normal mental status. She was in the emergency room for several hours until an ICU bed at [facility] was available and she was then transferred there by ambulance. She had received a seat a dose and also for for fomepizole. Medications Administered Discontinued Medications Generic Name Dose Route Start Last Admin Trade Name Aaronq PRN Reason Stop Dose Admin Dextrose 25 gm 04/20/25 10:44 04/20/25 10:46 Dextrose 50 % 25 Gm/50 Ml Syringe IVPUSH 04/20/25 10:45 25 gm ONCE ONE Administration Fentanyl 50 mcg 04/20/25 10:10 04/20/25 10:40 Fentanyl Citrate/Pf 100 Mcg/2 Ml Vial IVPUSH 04/20/25 10:11 50 mcg ONCE ONE Administration Protocol Fentanyl 100 mcg 04/20/25 13:34 04/20/25 13:46 Fentanyl Citrate/Pf 100 Mcg/2 Ml Vial IVPUSH 04/20/25 13:35 100 mcg ONCE ONE Administration Protocol Dextrose/Lactated Ringer's 1,000 mls @ 0 mls/hr 04/20/25 10:15 04/20/25 12:35 D5lr IVCONT Infused .Q0M RADHA Infusion Wide Open Dextrose/Lactated Ringer's 1,000 mls @ 0 mls/hr 04/20/25 10:16 04/20/25 11:42 D5lr IVCONT 04/20/25 10:17 Infused .Q0M STA Infusion Wide Open Lactated Ringer's 1,000 mls @ 999 mls/hr 04/20/25 13:37 04/20/25 15:19 Lr IV 04/20/25 14:37 Infused .Q1H1M STA Infusion Acetylcysteine 15,000 mg/ 275 mls @ 200 mls/hr 04/20/25 15:30 04/20/25 17:45 Dextrose IV 04/20/25 16:52 Infused ONCE ONE Infusion Acetylcysteine 5,000 mg/ 525 mls @ 125 mls/hr 04/20/25 16:30 04/20/25 21:00 Dextrose IV 04/20/25 20:41 Infused ONCE ONE Infusion Acetylcysteine 20,000 mg/ 1,100 mls @ 68.75 mls/hr 04/20/25 20:30 04/21/25 01:08 Dextrose IV 04/21/25 12:29 0 mls/hr ONCE ONE Infusion Fomepizole 1,500 mg/ Sodium 101.5 mls @ 199.891 mls/hr 04/20/25 15:15 04/20/25 17:46 Chloride IV 04/20/25 15:45 Infused ONCE ONE Infusion Calcium Gluconate 2 gm in 100 mls @ 50 mls/hr 04/20/25 19:57 04/20/25 23:03 Calcium Gluconate IV 04/20/25 21:56 Infused ONCE ONE Infusion Magnesium Sulfate 2 gm in 50 mls @ 150 mls/hr 04/20/25 20:38 04/21/25 01:06 Magnesium Sulfate/H2o IV 04/20/25 20:57 Infused ONCE ONE Infusion Potassium Chloride/Sodium Chloride 40 meq in 1,000 mls @ 200 mls/hr 04/20/25 22:45 04/21/25 01:05 Kcl 40 Meq In 0.9 % Sodium Chl IV 04/21/25 03:44 0 mls/hr .Q5H RADHA Infusion Midazolam HCl 2 mg 04/20/25 18:01 04/20/25 18:44 Midazolam Hcl 2 Mg/2 Ml Vial IVPUSH 04/20/25 18:02 2 mg ONCE ONE Administration Ondansetron HCl 4 mg 04/20/25 10:10 04/20/25 10:40 Ondansetron Hcl 4 Mg/2 Ml Vial IVPUSH 04/20/25 10:11 4 mg ONCE ONE Administration Ondansetron HCl 4 mg 04/20/25 15:54 04/20/25 16:17 Ondansetron Hcl 4 Mg/2 Ml Vial IVPUSH 04/20/25 15:55 4 mg ONCE ONE Administration Oseltamivir Phosphate 75 mg 04/20/25 13:24 04/20/25 13:45 Oseltamivir Phosphate 75 Mg Capsule PO 04/20/25 13:25 75 mg ONCE ONE Administration Medical Decision Making Medical Decision Making MDM Narrative: 39-year-old female with no significant past medical history who presents emergency department for evaluation of flu-like illness x2 weeks with fever as high as 103.5 degrees F at home, sweats, chills, nausea, vomiting, unable to eat or drink for the last 24 hours, epigastric and right upper quadrant pain (x3 days), lightheadedness, dizziness and weakness. Initial vital signs revealed hypotension with a BP of 60/45, tachycardia with a pulse of 104 and tachypnea with a respiratory rate of 24. Exam did reveal epigastric and right upper quadrant tenderness. Lung exam was normal. Differential diagnosis: ?Includes but is not limited to myocardial infarction, myocardial ischemia, viral syndrome, COVID-19, influenza, RSV, cholecystitis, gastritis, anemia, dehydration, electrolyte abnormalities Course: 13:08 My interpretation patient's laboratory evaluation is as follows: WBC elevated 13,500. Low platelet count a 147,000. Elevated BUN and creatinine 29 and 4.38-this is consistent with a acute kidney injury compared to BUN and creatinine of 11 and 0.54 on 03/03/2025-CT today of the abdomen pelvis did not reveal any obstructive process, no hydronephrosis.. Glucose was low at 23-most likely secondary to starvation/malnutrition. Total bilirubin elevated 4.4, AST is greater than 5234, ALT greater than 6000, alk-phos elevated 275. CK elevated 372. Troponin elevated 152.1. Lactic acid elevated 17.4. COVID-19 and RSV were negative. Influenza a was positive. Lipase was normal Initial salicylate level was 9.1, acetaminophen level was 18. PT INR were elevated 26.3 and 2.2. PTT was normal. CT scan of the abdomen pelvis with IV contrast revealed diffuse dilatation of the stomach with a reflex of fluid into esophagus with mild thickening of proximal loops of bowel with the radiologist thinking and obstructive process in his less likely in it may be more consistent with a an ileus. There was hepatomegaly with diffuse fatty infiltrates of the liver. I did order a right upper quadrant ultrasound rule out the possibility of gallstones. At this time I do not think that the patient has sepsis but her presentation is secondary to acute influenza a which caused her to be severely dehydrated/volume depleted with acute kidney injury due to her dehydration/volume depletion. Patient's elevated LFT suggests that she has a acute viral hepatitis. Patient was initially given D50 1 amp IV for her severe hypoglycemia and D5 LR x2 L to treat for starvation ketosis. 13:35 Patient states she is feeling better, her abdominal pain was 9/10 in his now down to 7/10. She was given another dose of fentanyl 100 mcg IV. 13:49 I did consult our personalized living assistant, Dr. Kenney. She recommended a right upper quadrant ultrasound to evaluate for gallstones, portal vein and hepatic vein thrombosis. She felt that the elevated transaminases were most likely caused by hypotensive injury from severe volume depletion but also recommended discussing Tylenol use with the patient and checking acetaminophen and salicylate levels. I did order viral hepatitis panel on the patient. Patient states that she bought [email or web address] Headache p.m acetaminophen 500 mg pills and diphenhydramine 38 mg per tablet. She states she took a 4 pills every 6 hours and took all 20 pills in the bottle over the last 24 hours. After obtaining this information from the patient, I did talk to poison control and . The poison control specialists recommended treating the patient with IV Acetadote as usual for the 1st and 2nd doses with the 3rd dose at 200 milligrams/kilogram (as opposed to 100 milligrams/kilogram) over 16 hours. They also recommended Fomepizole 15 milligrams/kilogram IV. Given the severity of the patient's LFT abnormalities, her episodes of hypotension, and possible acetaminophen toxicity, the poison rent control office manager recommended that the patient transfer to a facility that could do a potential liver transplant if the patient did not improve with the above treatment. 17:15 I did discuss the patient's presentation with the ICU attending at [facility], Dr. Leonard and he accepted the patient into the ICU at [facility]. 18:03 The patient denied taking aspirin and states that she only took acetaminophen PM. She did take DayQuil several days ago but this would not explain the patient's positive salicylate level. I will repeat the patient's acetaminophen and salicylate levels. I also added a VBG to check for acidosis. I did discuss the patient's presentation with the ICU 7 resident [facility], Dr. Deanne Burr. At the end of my shift, the patient's care was turned over to my colleague, Dr. Rick Novak. 04/21/2025 at 05:12 hours addendum: Patient's repeat acetaminophen level went from 18 to15 which is downward trending . Patient's salicylate level also was downward trending x2 (6.3 at 18:25 hours and 5.0 at 20:18 hours). Patient was transferred to [facility] by ALS ambulance at 01:12 hours. Differential Diagnosis Differential Diagnoses: The differential diagnosis associated with the presentation includes (See above) Admission/Observation Consideration of admission/observation: Escalation of care including admission/observation considered (Yes) Lab Data 04/20/25 10:24 04/20/25 20:18 Labs: Lab Results 04/20/25 04/20/25 04/20/25 Range/Units 09:52 10:23 10:24 WBC 13.5 H (4.8-10.8) X10*3/uL RBC 5.05 D (4.20-5.50) X10*6/uL Hgb 14.4 D (12.0-16.0) g/dl Hct 45.6 D (37.0-47.0) % MCV 90.3 (80.0-98.0) fL MCH 28.5 (27.0-33.0) pg MCHC 31.6 (31.0-35.0) g/dl RDW 18.4 H (11.0-16.0) % Plt Count 147 L D (160-400) X10*3/uL MPV 10.9 (9.4-12.3) fL Immature Gran % (Auto) Cancelled Neut % (Auto) Cancelled Lymph % (Auto) Cancelled Gregory % (Auto) Cancelled Eos % (Auto) Cancelled Baso % (Auto) Cancelled Lymph # (Auto) Cancelled Gregory # (Auto) Cancelled Eos # (Auto) Cancelled Baso # (Auto) Cancelled Abs Immat Gran (auto) Cancelled Absolute Neuts (auto) Cancelled Absolute Nucleated RBC 0.000 (0.0-0.012) X10*3/uL Nucleated RBC % (auto) 0.0 (0.0-0.2) /100WBC Neutrophils % (Manual) 89 H (45-73) % Band Neutrophils % 9 H (3-5) % Atypical Lymphs % (Man) 1 (0-6) % Monocytes % (Manual) 1 L (2-11) % Abs Neuts (Manual) 13.2 H (2.0-8.3) X10*3/uL Atyp Lymphs # (Manual) 0.1 x10*3/uL Monocytes # (Manual) 0.1 (0.1-1.2) X10*3/uL Toxic Vacuolation PRESENT Platelet Estimate NORMAL (NORMAL) Large Platelets PRESENT Plt Morphology Comment NOTED RBC Morphology NOTED Macrocytosis 1+ (5-14) /OIF Acanthocytes (Spur) 1+ (0-2) /OIF PT (11.2-13.5) SEC INR (0.9-1.1) APTT (26.7-34.1) SEC VBG pH (7.32-7.43) VBG pCO2 mmHg VBG pO2 mmHg VBG HCO3 (22-26) mmol/L VBG O2 Saturation % VBG Base Excess mmol/L Sodium 140 (135-145) mmol/L Potassium 3.8 (3.3-5.1) mmol/L Chloride 86 L (96-108) mmol/L Carbon Dioxide 11 L (22-29) mmol/L Anion Gap 47 H (12-20) BUN 29 H (9-16) mg/dL Creatinine 4.38 H* (0.5-1.4) mg/dL Estim Creat Clear Calc 20.7 Estimated GFR 11 POC Glucose 33 L* (60-115) mg/dL Random Glucose 23 L* (60-115) mg/dL Lactic Acid 17.1 H* (0.5-2.0) mmol/L Lactic Acid F/U @ 2Hr (0.5-2.0) mmol/L Lactic Acid F/U @ 4Hr (0.5-2.0) mmol/L Calcium 7.4 L D (8.4-10.2) mg/dL Magnesium 1.9 (1.6-2.6) mg/dL Total Bilirubin 4.4 H (0.0-1.0) mg/dL Direct Bilirubin (0.0-0.5) mg/dL AST > 5234 H (5-31) U/L ALT > 6000 H (0-31) U/L Alkaline Phosphatase 275 H (39-117) U/L Lactate Dehydrogenase (122-220) U/L Total Creatine Kinase 372 H (26-140) U/L Troponin I High Sens 152.1 H* D (<3.5-17.0) ng/L Total Protein 7.4 (6.5-8.0) g/dL Albumin 4.6 (3.5-5.0) g/dL Lipase 55 (8-78) U/L Salicylates (15-30) mg/dL Acetaminophen (<30) mcg/mL Influenza Type A (PCR) POSITIVE A (Negative) Influenza Type B (PCR) NEGATIVE (Negative) RSV RNA Qual (PCR) NEGATIVE (Negative) SARS-CoV-2 RNA (RT-PCR) NEGATIVE (Negative) 04/20/25 04/20/25 04/20/25 Range/Units 10:31 11:42 13:10 WBC (4.8-10.8) X10*3/uL RBC (4.20-5.50) X10*6/uL Hgb (12.0-16.0) g/dl Hct (37.0-47.0) % MCV (80.0-98.0) fL MCH (27.0-33.0) pg MCHC (31.0-35.0) g/dl RDW (11.0-16.0) % Plt Count (160-400) X10*3/uL MPV (9.4-12.3) fL Immature Gran % (Auto) Neut % (Auto) Lymph % (Auto) Gregory % (Auto) Eos % (Auto) Baso % (Auto) Lymph # (Auto) Gregory # (Auto) Eos # (Auto) Baso # (Auto) Abs Immat Gran (auto) Absolute Neuts (auto) Absolute Nucleated RBC (0.0-0.012) X10*3/uL Nucleated RBC % (auto) (0.0-0.2) /100WBC Neutrophils % (Manual) (45-73) % Band Neutrophils % (3-5) % Atypical Lymphs % (Man) (0-6) % Monocytes % (Manual) (2-11) % Abs Neuts (Manual) (2.0-8.3) X10*3/uL Atyp Lymphs # (Manual) x10*3/uL Monocytes # (Manual) (0.1-1.2) X10*3/uL Toxic Vacuolation Platelet Estimate (NORMAL) Large Platelets Plt Morphology Comment RBC Morphology Macrocytosis /OIF Acanthocytes (Spur) /OIF PT (11.2-13.5) SEC INR (0.9-1.1) APTT (26.7-34.1) SEC VBG pH (7.32-7.43) VBG pCO2 mmHg VBG pO2 mmHg VBG HCO3 (22-26) mmol/L VBG O2 Saturation % VBG Base Excess mmol/L Sodium (135-145) mmol/L Potassium (3.3-5.1) mmol/L Chloride (96-108) mmol/L Carbon Dioxide (22-29) mmol/L Anion Gap (12-20) BUN (9-16) mg/dL Creatinine (0.5-1.4) mg/dL Estim Creat Clear Calc Estimated GFR POC Glucose 38 L* 447 H* (60-115) mg/dL Random Glucose (60-115) mg/dL Lactic Acid (0.5-2.0) mmol/L Lactic Acid F/U @ 2Hr 14.9 H* (0.5-2.0) mmol/L Lactic Acid F/U @ 4Hr (0.5-2.0) mmol/L Calcium (8.4-10.2) mg/dL Magnesium (1.6-2.6) mg/dL Total Bilirubin (0.0-1.0) mg/dL Direct Bilirubin 2.9 H (0.0-0.5) mg/dL AST (5-31) U/L ALT (0-31) U/L Alkaline Phosphatase (39-117) U/L Lactate Dehydrogenase > 7500 H (122-220) U/L Total Creatine Kinase (26-140) U/L Troponin I High Sens 146.8 H* (<3.5-17.0) ng/L Total Protein (6.5-8.0) g/dL Albumin (3.5-5.0) g/dL Lipase (8-78) U/L Salicylates 9.1 L (15-30) mg/dL Acetaminophen 18 (<30) mcg/mL Influenza Type A (PCR) (Negative) Influenza Type B (PCR) (Negative) RSV RNA Qual (PCR) (Negative) SARS-CoV-2 RNA (RT-PCR) (Negative) 04/20/25 04/20/25 04/20/25 Range/Units 14:54 15:38 18:25 WBC (4.8-10.8) X10*3/uL RBC (4.20-5.50) X10*6/uL Hgb (12.0-16.0) g/dl Hct (37.0-47.0) % MCV (80.0-98.0) fL MCH (27.0-33.0) pg MCHC (31.0-35.0) g/dl RDW (11.0-16.0) % Plt Count (160-400) X10*3/uL MPV (9.4-12.3) fL Immature Gran % (Auto) Neut % (Auto) Lymph % (Auto) Gregory % (Auto) Eos % (Auto) Baso % (Auto) Lymph # (Auto) Gregory # (Auto) Eos # (Auto) Baso # (Auto) Abs Immat Gran (auto) Absolute Neuts (auto) Absolute Nucleated RBC (0.0-0.012) X10*3/uL Nucleated RBC % (auto) (0.0-0.2) /100WBC Neutrophils % (Manual) (45-73) % Band Neutrophils % (3-5) % Atypical Lymphs % (Man) (0-6) % Monocytes % (Manual) (2-11) % Abs Neuts (Manual) (2.0-8.3) X10*3/uL Atyp Lymphs # (Manual) x10*3/uL Monocytes # (Manual) (0.1-1.2) X10*3/uL Toxic Vacuolation Platelet Estimate (NORMAL) Large Platelets Plt Morphology Comment RBC Morphology Macrocytosis /OIF Acanthocytes (Spur) /OIF PT 26.3 H (11.2-13.5) SEC INR 2.2 H (0.9-1.1) APTT 32.7 (26.7-34.1) SEC VBG pH (7.32-7.43) VBG pCO2 mmHg VBG pO2 mmHg VBG HCO3 (22-26) mmol/L VBG O2 Saturation % VBG Base Excess mmol/L Sodium 131 L (135-145) mmol/L Potassium 3.8 (3.3-5.1) mmol/L Chloride 87 L (96-108) mmol/L Carbon Dioxide 16 L (22-29) mmol/L Anion Gap 32 H (12-20) BUN 33 H (9-16) mg/dL Creatinine 4.36 H* (0.5-1.4) mg/dL Estim Creat Clear Calc 20.8 Estimated GFR 11 POC Glucose 333 H (60-115) mg/dL Random Glucose 246 H (60-115) mg/dL Lactic Acid 9.2 H* (0.5-2.0) mmol/L Lactic Acid F/U @ 2Hr (0.5-2.0) mmol/L Lactic Acid F/U @ 4Hr 12.7 H* (0.5-2.0) mmol/L Calcium 5.9 L* D (8.4-10.2) mg/dL Magnesium (1.6-2.6) mg/dL Total Bilirubin 4.0 H (0.0-1.0) mg/dL Direct Bilirubin (0.0-0.5) mg/dL AST TNP (5-31) U/L ALT 5774 H (0-31) U/L Alkaline Phosphatase 174 H (39-117) U/L Lactate Dehydrogenase (122-220) U/L Total Creatine Kinase (26-140) U/L Troponin I High Sens (<3.5-17.0) ng/L Total Protein 5.5 L (6.5-8.0) g/dL Albumin 3.3 L (3.5-5.0) g/dL Lipase (8-78) U/L Salicylates 6.3 L (15-30) mg/dL Acetaminophen 15 (<30) mcg/mL Influenza Type A (PCR) (Negative) Influenza Type B (PCR) (Negative) RSV RNA Qual (PCR) (Negative) SARS-CoV-2 RNA (RT-PCR) (Negative) 04/20/25 04/20/25 04/20/25 Range/Units 18:30 20:18 20:29 WBC (4.8-10.8) X10*3/uL RBC (4.20-5.50) X10*6/uL Hgb (12.0-16.0) g/dl Hct (37.0-47.0) % MCV (80.0-98.0) fL MCH (27.0-33.0) pg MCHC (31.0-35.0) g/dl RDW (11.0-16.0) % Plt Count (160-400) X10*3/uL MPV (9.4-12.3) fL Immature Gran % (Auto) Neut % (Auto) Lymph % (Auto) Gregory % (Auto) Eos % (Auto) Baso % (Auto) Lymph # (Auto) Gregory # (Auto) Eos # (Auto) Baso # (Auto) Abs Immat Gran (auto) Absolute Neuts (auto) Absolute Nucleated RBC (0.0-0.012) X10*3/uL Nucleated RBC % (auto) (0.0-0.2) /100WBC Neutrophils % (Manual) (45-73) % Band Neutrophils % (3-5) % Atypical Lymphs % (Man) (0-6) % Monocytes % (Manual) (2-11) % Abs Neuts (Manual) (2.0-8.3) X10*3/uL Atyp Lymphs # (Manual) x10*3/uL Monocytes # (Manual) (0.1-1.2) X10*3/uL Toxic Vacuolation Platelet Estimate (NORMAL) Large Platelets Plt Morphology Comment RBC Morphology Macrocytosis /OIF Acanthocytes (Spur) /OIF PT (11.2-13.5) SEC INR (0.9-1.1) APTT (26.7-34.1) SEC VBG pH 7.51 H 7.47 H (7.32-7.43) VBG pCO2 18 25 mmHg VBG pO2 208 94 mmHg VBG HCO3 14 L 18 L (22-26) mmol/L VBG O2 Saturation 99.0 99.0 % VBG Base Excess -5.1 -3.3 mmol/L Sodium 131 L (135-145) mmol/L Potassium 3.8 (3.3-5.1) mmol/L Chloride 84 L (96-108) mmol/L Carbon Dioxide 20 L (22-29) mmol/L Anion Gap 31 H (12-20) BUN 35 H (9-16) mg/dL Creatinine 4.37 H* (0.5-1.4) mg/dL Estim Creat Clear Calc 20.8 Estimated GFR 11 POC Glucose (60-115) mg/dL Random Glucose 241 H (60-115) mg/dL Lactic Acid 7.2 H* (0.5-2.0) mmol/L Lactic Acid F/U @ 2Hr (0.5-2.0) mmol/L Lactic Acid F/U @ 4Hr (0.5-2.0) mmol/L Calcium 5.7 L* (8.4-10.2) mg/dL Magnesium 1.3 L* (1.6-2.6) mg/dL Total Bilirubin (0.0-1.0) mg/dL Direct Bilirubin (0.0-0.5) mg/dL AST (5-31) U/L ALT (0-31) U/L Alkaline Phosphatase (39-117) U/L Lactate Dehydrogenase (122-220) U/L Total Creatine Kinase (26-140) U/L Troponin I High Sens (<3.5-17.0) ng/L Total Protein (6.5-8.0) g/dL Albumin (3.5-5.0) g/dL Lipase (8-78) U/L Salicylates 5.0 L (15-30) mg/dL Acetaminophen (<30) mcg/mL Influenza Type A (PCR) (Negative) Influenza Type B (PCR) (Negative) RSV RNA Qual (PCR) (Negative) SARS-CoV-2 RNA (RT-PCR) (Negative) 04/20/25 Range/Units 23:57 WBC (4.8-10.8) X10*3/uL RBC (4.20-5.50) X10*6/uL Hgb (12.0-16.0) g/dl Hct (37.0-47.0) % MCV (80.0-98.0) fL MCH (27.0-33.0) pg MCHC (31.0-35.0) g/dl RDW (11.0-16.0) % Plt Count (160-400) X10*3/uL MPV (9.4-12.3) fL Immature Gran % (Auto) Neut % (Auto) Lymph % (Auto) Gregory % (Auto) Eos % (Auto) Baso % (Auto) Lymph # (Auto) Gregory # (Auto) Eos # (Auto) Baso # (Auto) Abs Immat Gran (auto) Absolute Neuts (auto) Absolute Nucleated RBC (0.0-0.012) X10*3/uL Nucleated RBC % (auto) (0.0-0.2) /100WBC Neutrophils % (Manual) (45-73) % Band Neutrophils % (3-5) % Atypical Lymphs % (Man) (0-6) % Monocytes % (Manual) (2-11) % Abs Neuts (Manual) (2.0-8.3) X10*3/uL Atyp Lymphs # (Manual) x10*3/uL Monocytes # (Manual) (0.1-1.2) X10*3/uL Toxic Vacuolation Platelet Estimate (NORMAL) Large Platelets Plt Morphology Comment RBC Morphology Macrocytosis /OIF Acanthocytes (Spur) /OIF PT (11.2-13.5) SEC INR (0.9-1.1) APTT (26.7-34.1) SEC VBG pH (7.32-7.43) VBG pCO2 mmHg VBG pO2 mmHg VBG HCO3 (22-26) mmol/L VBG O2 Saturation % VBG Base Excess mmol/L Sodium (135-145) mmol/L Potassium (3.3-5.1) mmol/L Chloride (96-108) mmol/L Carbon Dioxide (22-29) mmol/L Anion Gap (12-20) BUN (9-16) mg/dL Creatinine (0.5-1.4) mg/dL Estim Creat Clear Calc Estimated GFR POC Glucose (60-115) mg/dL Random Glucose (60-115) mg/dL Lactic Acid (0.5-2.0) mmol/L Lactic Acid F/U @ 2Hr 5.6 H* (0.5-2.0) mmol/L Lactic Acid F/U @ 4Hr (0.5-2.0) mmol/L Calcium (8.4-10.2) mg/dL Magnesium (1.6-2.6) mg/dL Total Bilirubin (0.0-1.0) mg/dL Direct Bilirubin (0.0-0.5) mg/dL AST (5-31) U/L ALT (0-31) U/L Alkaline Phosphatase (39-117) U/L Lactate Dehydrogenase (122-220) U/L Total Creatine Kinase (26-140) U/L Troponin I High Sens (<3.5-17.0) ng/L Total Protein (6.5-8.0) g/dL Albumin (3.5-5.0) g/dL Lipase (8-78) U/L Salicylates (15-30) mg/dL Acetaminophen (<30) mcg/mL Influenza Type A (PCR) (Negative) Influenza Type B (PCR) (Negative) RSV RNA Qual (PCR) (Negative) SARS-CoV-2 RNA (RT-PCR) (Negative) Independent Interpretation I performed an independent interpretation of an: Plain X-Ray Interpretation: My independent interpretation patient's one-view chest x-ray is as follows: No acute disease Radiology Impression Discussion of test interpretation with radiology: I have reviewed the radiologist's reading. Radiologist Impression: XR chest 1V IMPRESSION: No gross acute airspace disease. Gas filled prominent stomach Electronically signed by: Lito Verma MD 04/20/2025 10:[address] abdomen pelvis wo IV con IMPRESSION: 1. Diffuse dilatation of the stomach with fluid, with reflux of fluid into the distal esophagus. A gastric outlet obstruction is a consideration. In addition there is mild thickening of some proximal loops of small bowel, and a gastroenteritis causing this overall appearance is also a consideration. An obstructing mass at the level of the gastric antrum is considered less likely although cannot definitively be excluded given the appearance (evaluation of the limited without IV contrast). Follow-up recommended, possibly with endoscopy. 2. Hepatomegaly with diffuse fatty infiltration of the liver. 3. Ancillary findings as discussed in the body of the report. Electronically signed by: Garret Nichols MD 04/20/2025 12:36 PM [facility] Critical Care Time Critical Care Time Critical Care Time: Yes Total Critical Care Time: 120 Attestation: Critical Care: The patient was critically ill with a high probability of imminent or life threatening deterioration. I spent greater than 30 minutes of discontinuous time evaluating the patient,delivering critical care at the bedside, discussing and evaluating pertinent data with consultants. Critical care time does not include time spent performing separately billable procedures or teaching. Total time spent performing critical care was 120 minutes. Discharge Plan Discharge Clinical Impression: Acute hepatic failure, Acetaminophen toxicity, Influenza A, Abdominal pain Patient Disposition: [facility] Transfer Details: [facility], ICU 7, accepting attending, Dr. Leonard Prescriptions: No Action acetaminophen-codeine 300-30 mg tablet 1 tab PO Q8H PRN (Reason: pain, severe) 3 Days Qty: 5 0RF oxycodone 5 mg tablet 5 mg PO Q6H PRN (Reason: severe pain (scale score 7-10)) Qty: 7 0RF Rx Instructions: Partial Fill upon patient request. acetaminophen [Tylenol Extra Strength] 500 mg tablet 500 mg PO Q6H PRN (Reason: pain) Qty: 30 0RF ibuprofen 600 mg tablet 600 mg PO Q6H PRN (Reason: pain) Qty: 30 0RF cefuroxime axetil 500 mg tablet 500 mg PO BID 8 Days Qty: 16 0RF ibuprofen 400 mg tablet 400 mg PO Q6H PRN (Reason: pain) Qty: 14 0RF ondansetron 4 mg tablet,disintegrating 4 mg PO Q6H PRN (Reason: nausea and vomiting) Qty: 10 0RF azithromycin 250 mg tablet 250 mg PO DAILY 4 Days Qty: 4 0RF Rx Instructions: start on day 2 of therapy ketorolac 10 mg tablet 10 mg PO Q8H PRN (Reason: pain) Qty: 12 0RF Rx Instructions: maximum total duration of 5 days from all oral, intranasal, or parenteral formulations cyclobenzaprine 10 mg tablet 10 mg PO TID PRN (Reason: muscle spasm) Qty: 10 0RF doxycycline monohydrate 100 mg capsule 100 mg PO BID Qty: 14 0RF prednisone 20 mg tablet 40 mg PO DAILY Qty: 8 0RF tramadol 50 mg tablet 50 mg PO BID 7 Days Qty: 14 0RF ibuprofen 800 mg tablet 800 mg PO Q8H PRN (Reason: pain) 30 Days Qty: 90 3RF Interventions: Acute Care Transfer Worksheet (ED) Last Done: 04/21/25 01:12 Discharge Date/Time: 04/21/25 01:15 Print Language: Croatian
[2025-04-20] MEDS: Dextrose 5 % and Lactated Ring 1,000 ML 999 ML IVCONT ×2 (10:30)
[2025-04-20 10:34] LABS: Glucose, Whole Blood 38 mg/dL (60-115)
[2025-04-20 10:39] LABS: Hematocrit 45.6 % (37.0-47.0); Hemoglobin 14.4 g/dl (12.0-16.0); Mean Corpuscular HGB Conc 31.6 g/dl (31.0-35.0); Mean Corpuscular Hemoglobin 28.5 pg (27.0-33.0); Mean Corpuscular Volume 90.3 fL (80.0-98.0); NRBC Abs Auto 0.000 X10*3/uL (0.0-0.012); NRBC Pct Auto 0.0 /100WBC (0.0-0.2); Platelet Count 147 X10*3/uL (160-400); Red Blood Count 5.05 X10*6/uL (4.20-5.50); White Blood Count 13.5 X10*3/uL (4.8-10.8)
[2025-04-20 11:09] LABS: Troponin-I High Sensitivity 152.1 ng/L (<3.5-17.0)
[2025-04-20 11:11] LABS: Albumin Level 4.6 g/dL (3.5-5.0); Alkaline Phosphatase 275 U/L (39-117); Anion Gap 47 (12-20); Blood Urea Nitrogen 29 mg/dL (9-16); Calcium 7.4 mg/dL (8.4-10.2); Carbon Dioxide 11 mmol/L (22-29); Chloride 86 mmol/L (96-108); Creatinine Clr Calc Pharmacy 20.7; Estimated Glomerular Filt Rate 11; Lipase 55 U/L (8-78); Magnesium 1.9 mg/dL (1.6-2.6); Potassium 3.8 mmol/L (3.3-5.1); Sodium 140 mmol/L (135-145); Total Protein 7.4 g/dL (6.5-8.0)
[2025-04-20 11:12] LABS: Atypical Lymph Absolute Manual 0.1 x10*3/uL; Atypical Lymphs Percent Manual 1 % (0-6); Band Neutrophils Percent 9 % (3-5); Monocytes Absolute Manual 0.1 X10*3/uL (0.1-1.2); Monocytes Percent Manual 1 % (2-11); Neutrophils Absolute Manual 13.2 X10*3/uL (2.0-8.3); Neutrophils Percent Manual 89 % (45-73)
[2025-04-20 11:14] LABS: Acanthocytes 1+ (0-2) /OIF; Large Platelet PRESENT; Macrocytosis 1+ (5-14) /OIF; RBC Morphology NOTED; Toxic Vacuolation PRESENT
[2025-04-20 11:25] LABS: Alanine Aminotransferase > 6000 U/L (0-31)
[2025-04-20 11:26] LABS: Aspartate Amino Transferase > 5234 U/L (5-31)
[2025-04-20 11:27] LABS: Resp Syncy Virus RNA Qual PCR NEGATIVE (Negative); SARS COV2 PCR INHOUSE NEGATIVE (Negative)
[2025-04-20 11:45] LABS: Glucose, Whole Blood 447 mg/dL (60-115)
[2025-04-20 12:31] LABS: Reflex Lactate? Lactic Acid Added
--- OUTSIDE RECORDS SUMMARY | 2025-04-20 13:34 | XMS_ITS | Clinical Summary ---
Author Organization [facility] Address [address] [place] [address] Phone Care Team Providers Care Recreation Therapy Aide Name Role Phone Hortensia Tucker WEIGHT AND BALANCE CONTROL AGENT Unavailable [phone] Pcp, Unknown Primary Care Provider Unavailabl [...] Medical Devices Not on file Care Teams Recreation Therapy Aide Relationship Specialty Start Date End Date Pcp, Unknown PCP - General 12/04/21 Hortensia Tucker NP [email or web address] Historical LMR Provider 02/19/17 Additional Source Comments The information contained in this document represents components of the legal health record. It is not the complete legal health record.[facility]
--- NOTE | 2025-04-20 13:35 | ECG_ITS ---
Test Reason : hyptontion Blood Pressure : */* mmHG Vent. Rate : 92 BPM Atrial Rate : 92 BPM P-R Int : 152 ms QRS Dur : 88 ms QT Int : 398 ms P-R-T Axes : 51 -1 54 degrees QTcB Int : 492 ms Normal sinus rhythm Minimal voltage criteria for LVH, may be normal variant ( Karl product ) Possible Anterior infarct , age undetermined Abnormal ECG When compared with ECG of 13-Feb-2025 09:48, No significant change was found Referred By: Luis Angel Benitez Electronically Signed By: Sumanth Ojeda
--- OUTSIDE RECORDS SUMMARY | 2025-04-20 13:35 | XMS_ITS | Patient Health Record ---
Author Organization [facility] Address [address] [place] [address] Care Team Providers Care Ophthalmologist Retina Specialist Name Role Phone BOLIVAR BROWN Unavailable [phone] Allergies No Known Allergies Reason For Referral [...] you used tobacco? Yes, jessie awan [employer] cigarettes Tobacco Smoking Status Current every day smoker Section Notes: Client would like to schedul e lab visit for STI testing Vital Signs Blood pressure diastolic 88 mm Hg 10/07/2024 Height 5'5 in 10/07/2024 Blood pressure systolic 132 mm Hg 10/07/2024 Weight 201.6 lbs 10/07/2024 BMI 33.54 kg/m2 10/07/2024 Encounters Encounter Location Date Provider Diagnosis [address] [id number] 10/07/2024 BOLIVAR BROWN Nexplanon Removal and Insertion [...] ATT CLAIMS [address] [place] [address] [id number] Jessica Martínez Self - patient is the insured Medical (General) History Medical History History ICD Code Anxiety/depression - in therapy
[2025-04-20 13:43] LABS: Troponin-I High Sensitivity 146.8 ng/L (<3.5-17.0)
[2025-04-20 13:45] LABS: ~Lactic Acid-LAB USE ONLY 14.9 mmol/L (0.5-2.0)
[2025-04-20] MEDS: Lactated Ringers 1,000 ML 999 ML IV (13:46)
[2025-04-20 14:50] LABS: Acetaminophen LAB 18 mcg/mL (<30); Salicylate 9.1 mg/dL (15-30)
[2025-04-20 14:58] LABS: Glucose, Whole Blood 333 mg/dL (60-115)
[2025-04-20] MEDS: Acetylcysteine 15,000 MG in Dextrose 5 % 200 ML 200 MG IV (15:15)
[2025-04-20 15:16] LABS: Reflex Lactate? 2 Y
--- NOTE | 2025-04-20 15:44 | PM.GICN ---
History of Present Illness Data of Consult Service Date: 04/20/25 Requesting physician: Luis Angel Benitez Primary Care Provider: Unknown Physician HPI Reason for consult: Elevated LFTs This is a 39 y.o F with PMH of etOH use disorder sober since September 2024 who presented for fevers and shortness of breath and found to have influenza. Gastroenterology consulted for elevated LFts with concern for acute liver failure. Pt reports feeling sick x 3 days in the context of her son being sick with Flu 2 weeks ago. Describes generalized fatigue, body aches, headaches, chills, N/V. Had been taking tylenol PM 3-4 pills 4-6 times a day (est tylenol 8-12g/day) in the last 2 days. Today has also been feeling weak, lightheaded and generally more sleepy and groggy and therefore came to the ER. Vitals with soft pressures but no fevers. Labs with Flu A positive. Sig lab abnormalities including markedly elevated LFTs with bili >4. INR unavailable. CT abd/pel w/o contrast with hepatomegaly and ??partial GOO. Pt assessed at bedside, reports fogginess but otherwise A/Ox3 no asterixis. Able to walk without any assistance. Reports complete sobriety from etOH since September. No fam hx of liver disease. Preg test N/A but pt does not report sexual activity x 1 year. Review of Systems Review of Systems: Yes all other systems are reviewed and are negative [facility] Social History Social History Unable to assess alcohol history related to: Unknown Alcohol intake: never Patient Tobacco Use Status: Current everyday Tobacco user Smoked in Last 30 Days: Yes Use of substances other than those prescribed or required for medical reasons: Yes Substance Use Type: Marijuana Advance Directives: No Advance Directives Information Provided: Yes Patient : No Current occupational status: unemployed Current occupation: right hand dominant Meds Allergies Allergy/AdvReac Type Severity Reaction Status Date / Time candy corn Allergy Unknown hives Uncoded 04/20/25 10:08 Motrin Allergy Unknown hives Uncoded 04/20/25 10:08 Active Medications: Current Medications Dextrose/Lactated Ringer's (D5lr) 1,000 mls @ 0 mls/hr IVCONT .Q0M RADHA Last Infusion: 04/20/25 12:35 Dose: Infused Acetylcysteine 15,000 mg/ (Dextrose) 275 mls @ 200 mls/hr IV ONCE ONE Stop: 04/20/25 16:52 Last Admin: 04/20/25 15:15 Dose: 200 mls/hr Acetylcysteine 5,000 mg/ (Dextrose) 525 mls @ 125 mls/hr IV ONCE ONE Stop: 04/20/25 20:41 Acetylcysteine 20,000 mg/ (Dextrose) 1,100 mls @ 68.75 mls/hr IV ONCE ONE Stop: 04/21/25 12:29 Fomepizole 1,500 mg/ Sodium (Chloride) 101.5 mls @ 199.891 mls/hr IV ONCE ONE Stop: 04/20/25 15:45 Physical Exam Exam: Exam: Young female icteric abd soft nontender no guarding, palpable hepatomegaly no lower extemity edema A/Ox3, no asterixis Vital Signs: Vital Signs: Last Vital Signs Temp 97.7 F 04/20/25 15:20 Pulse 91 04/20/25 15:20 Resp 18 04/20/25 15:20 BP 102/68 04/20/25 15:20 Pulse Ox 95 04/20/25 15:20 O2 Del Method Room Air 04/20/25 15:20 BMI result Body Mass Index 38.0 Results Labs 04/20/25 10:24 04/20/25 10:24 Labs: Short CBC 04/20/25 Range/Units 10:24 WBC 13.5 H (4.8-10.8) X10*3/uL Hgb 14.4 D (12.0-16.0) g/dl Hct 45.6 D (37.0-47.0) % Plt Count 147 L D (160-400) X10*3/uL BMP 04/20/25 10:24 Sodium 140 Potassium 3.8 Chloride 86 L Carbon Dioxide 11 L BUN 29 H Creatinine 4.38 H* Calcium 7.4 L D Cardiac Enzymes 04/20/25 Range/Units 10:24 Total Creatine Kinase 372 H (26-140) U/L Liver Function 04/20/25 04/20/25 Range/Units 10:24 13:10 Total Bilirubin 4.4 H (0.0-1.0) mg/dL Direct Bilirubin 2.9 H (0.0-0.5) mg/dL AST > 5234 H (5-31) U/L ALT > 6000 H (0-31) U/L Alkaline Phosphatase 275 H (39-117) U/L Albumin 4.6 (3.5-5.0) g/dL Assessment and Plan (1) Acute hepatic failure: Status: Acute (2) Acetaminophen toxicity: Status: Acute (3) Elevated LFTs: Status: Acute Plan Based on presentation, strongly suspect inadvertent tylenol toxicity. Estimates last dose yest night. Reviewed with the pt re critical nature of illness and high suspicion for acute liver failure. Coag pending. Suspect has mild HE too though could have sleepiness /mental status changes from benadryl (was taking tylenol PM) as well. Very high lactate and multi-organ injury including kidney. May need to be transferred to liver transplant facility based on results of w.up below. Plan: - Aggressive fluid resuscitation for multi-organ injury and lactate 17. - Start NAC based on high clinical suspicion for tylenol overdose - 300mg/kg/24h as followin mg/kg infused over 1 hour followed by 50 mg/kg over 4 hours and then 100 mg/kg infused over 16 hours. - Check ASA and APAP levels slime - Check acute hepatitis serologies - Check US abd with doppler for i) liver appearance, ii) hepatic and portal vein thrombosis - Check urine test to r/o HELLP jose given thrombocytopenia - Poison control already contacted by ER - PT/INR and ABG pending. Pt will likely need to be transferred to liver transplant facility and may need Nephrology on board as well. Thank you for allowing me to participate in her care. Please do not hesitate to reach out for questions or concerns. Procedures Date of Service Date of Service: 04/20/25
[2025-04-20 15:54] LABS: INTERNATIONAL NORM RATIO 2.2 (0.9-1.1); Prothrombin Time 26.3 SEC (11.2-13.5)
[2025-04-20 15:57] LABS: Partial Thromboplastin Time 32.7 SEC (26.7-34.1)
[2025-04-20 16:04] LABS: ~Lactic Acid-LAB USE ONLY 12.7 mmol/L (0.5-2.0)
[2025-04-20] MEDS: Acetylcysteine 5,000 MG in Dextrose 5 % 500 ML 125 MG IV (16:20)
--- NOTE | 2025-04-20 16:45 | HE.PHANOTE ---
Re Acetylcysteine Dosing Spoke with Dr Benitez in ED, Poison Control recommended 200mg/kg for the 3rd bag, over 16 hours. Rounded to 20g in 1L of D5W.
[2025-04-20 18:35] LABS: Venous Blood Gas Refer to POC result
[2025-04-20 18:36] LABS: VBG HCO3 14 mmol/L (22-26); VBG O2 % Saturation 99.0 %
[2025-04-20 18:58] LABS: Albumin Level 3.3 g/dL (3.5-5.0); Alkaline Phosphatase 174 U/L (39-117); Anion Gap 32 (12-20); Blood Urea Nitrogen 33 mg/dL (9-16); Calcium 5.9 mg/dL (8.4-10.2); Carbon Dioxide 16 mmol/L (22-29); Chloride 87 mmol/L (96-108); Creatinine Clr Calc Pharmacy 20.8; Estimated Glomerular Filt Rate 11; Potassium 3.8 mmol/L (3.3-5.1); Sodium 131 mmol/L (135-145); Total Protein 5.5 g/dL (6.5-8.0)
[2025-04-20 19:12] LABS: Acetaminophen LAB 15 mcg/mL (<30); Salicylate 6.3 mg/dL (15-30)
[2025-04-20 19:25] LABS: Alanine Aminotransferase 5774 U/L (0-31)
--- NOTE | 2025-04-20 19:38 | PC.NURSE ---
Patient alert and oriented x 3. Patient has had diarrhea all day. Patient c/o pain in abdomen. Tele: sinus rythym 80-90's. Patient has 2 iv's 20g right hand and left AC. Patient was given versed for pain/anxiety. [facility] control wants lactate, BMP, Tylenol, Salicate, VBG Q2hr. Patient going to [place] [address] ICU report called to Minda SINGH. Patient has only voided once today. BP soft will be checking [id number]. Gave report to Blair SINGH. last bp 106/69
[2025-04-20 20:28] LABS: Reflex Lactate? Lactic Acid Added
[2025-04-20 20:32] LABS: Venous Blood Gas Refer to POC result
[2025-04-20 20:33] LABS: VBG HCO3 18 mmol/L (22-26); VBG O2 % Saturation 99.0 %
[2025-04-20 20:43] LABS: Salicylate 5.0 mg/dL (15-30)
[2025-04-20 20:47] LABS: Anion Gap 31 (12-20); Blood Urea Nitrogen 35 mg/dL (9-16); Calcium 5.7 mg/dL (8.4-10.2); Carbon Dioxide 20 mmol/L (22-29); Chloride 84 mmol/L (96-108); Creatinine Clr Calc Pharmacy 20.8; Estimated Glomerular Filt Rate 11; Potassium 3.8 mmol/L (3.3-5.1); Sodium 131 mmol/L (135-145)
[2025-04-20] MEDS: Calcium Gluconate/NaCl,Iso-Osm 2 GM/100 ML PLAST..BAG IV (20:55)
[2025-04-20 21:09] LABS: Magnesium 1.3 mg/dL (1.6-2.6)
--- NOTE | 2025-04-20 21:27 | ECG_ITS ---
Test Reason : REPEAT Blood Pressure : */* mmHG Vent. Rate : 89 BPM Atrial Rate : 89 BPM P-R Int : 158 ms QRS Dur : 86 ms QT Int : 424 ms P-R-T Axes : 51 29 60 degrees QTcB Int : 515 ms Normal sinus rhythm Anteroseptal infarct (cited on or before 20-Apr-2025) Prolonged QT Abnormal ECG When compared with ECG of 20-Apr-2025 13:53, No significant change was found Referred By: Rick Novak Electronically Signed By: Sumanth Ojeda
[2025-04-20 22:28] LABS: Reflex Lactate? Lactic Acid Added
[2025-04-20] MEDS: KCl 40 mEq in 0.9 % Sodium Chl 40 MEQ/1,000 ML IV.SOLN 200 MEQ IV (23:00)
[2025-04-20] MEDS: Magnesium Sulfate/H2O 2 GM/50 ML PIGGYBACK IV (23:02)
[2025-04-21 00:26] LABS: ~Lactic Acid-LAB USE ONLY 5.6 mmol/L (0.5-2.0)
--- NOTE | 2025-04-21 00:26 | PC.NURSE ---
patient lactic result critical at 5.6. provider made aware but level has improved. patient has been transferred to [facility]
[2025-04-21 01:12] VITALS: BP 116/55; PULSE 95; RESP 18; TEMP 36.4; O2SAT 97
[2025-04-21 02:05] LABS: Reflex Lactate? 2 Y
[2025-04-21 05:26] LABS: HBS Num1 107.47 mIU/mL (0-7.99); HBc Num1 0.09 S/CO (0.00-0.79); Hepatitis A Antibody IgM 0.66 Index (0-0.79); ~HepC Num1 0.09 S/CO (0.00-0.79); ~Hepatitis A Antibody IgM Nonreactive (Nonreactive); ~Hepatitis B Surface Antibody REACTIVE (Nonreactive); ~Hepatitis C Antibody Nonreactive (Nonreactive)
[2025-04-22 13:24] LABS: HBsAGNum1 0.28 S/CO (0.00-0.99); Hepatitis B Surface Antigen Negative (Negative)
== END 2025-04-21 01:15 | disposition short-term general hospital (02) ==
PROVIDERS: Emergency Medicine Emergency Medical Services; Emergency Provider Emergency Medicine
DX: K72.00 Acute and subacute hepatic failure without coma (principal); T39.1X1A Poisoning by 4-Aminophenol derivatives, accidental (unintentional), initial encounter; R79.89 Other specified abnormal findings of blood chemistry; J10.1 Influenza due to other identified influenza virus with other respiratory manifestations; R10.11 Right upper quadrant pain; R11.2 Nausea with vomiting, unspecified; R05.9 Cough, unspecified; R06.02 Shortness of breath; Z03.818 Encounter for observation for suspected exposure to other biological agents ruled out; F17.200 Nicotine dependence, unspecified, uncomplicated; Z71.6 Tobacco abuse counseling
CPT/HCPCS: 36415; 71045; 74176; 76705; 80048; 80053; 80143; 80179; 82248; 82550; 82803; 82947; 83605; 83615; 83690; 83735; 84484; 85007; 85025; 85027; 85610; 85730; 86704; 86706; 86709; 86803; 87040; 87340; 87637; 93005; 93975; 96361; 96365; 96366; 96367; 96375; 96376; 99285; 99291; 99292; J0132; J0613; J1451; J2250; J2405; J3010; J3475; J3480; J7120

== ENCOUNTER → 2025-04-20 10:11 | Outpatient (BNV) | payer OTHER, SELFPAY | PROVIDERS: Emergency Provider Emergency Medicine Emergency Medical Services; Visit Provider Radiology Diagnostic Radiology | DX: K21.9 Gastro-esophageal reflux disease without esophagitis (principal); K76.0 Fatty (change of) liver, not elsewhere classified; R16.0 Hepatomegaly, not elsewhere classified; K76.89 Other specified diseases of liver; K82.0 Obstruction of gallbladder; R05.9 Cough, unspecified; R11.2 Nausea with vomiting, unspecified | CPT/HCPCS: 71045; 74176; 76705; 93975 ==

== ENCOUNTER → 2025-04-20 10:38 | Outpatient (BNV) | payer OTHER, SELFPAY | PROVIDERS: Emergency Provider Emergency Medicine Emergency Medical Services; Visit Provider Internal Medicine | DX: K72.00 Acute and subacute hepatic failure without coma (principal); T39.1X1A Poisoning by 4-Aminophenol derivatives, accidental (unintentional), initial encounter; R79.89 Other specified abnormal findings of blood chemistry | CPT/HCPCS: 99285 ==

== ENCOUNTER → 2025-04-20 13:35 | Outpatient (BNV) | payer OTHER, SELFPAY | PROVIDERS: Emergency Provider Emergency Medicine Emergency Medical Services; Visit Provider Internal Medicine Cardiovascular Disease | DX: I25.2 Old myocardial infarction (principal) | CPT/HCPCS: 93010 ==